=== PATIENT | female | born 1990 | race Caucasian/White ===

== ENCOUNTER → 2016-10-14 | Outpatient (CLI) | payer MEDICAID ==
[~2016-10-14] MED LIST: AZITHROMYCIN250 MG PO; KEFLEX 500MG.500 MG PO; LEVSIN0.125 MG PO; MACROBID 100MG100 MG PO; MEDROL 4MG. DOSE4 MG PO; NEXIUM40 MG PO; NOMEDS XX; PHENERGAN 12.12.5 M1 PO; PHENERGAN 25MG.25 M1 PO; PHENERGAN25 M3 PO; PRENATAL PLUS1 TA1 PO; TESSALON PERLE100 MG PO; TOPCARE OMEPRAZ20 MG PO; TYLENOL WITH CO1 TA1 PO; VICODIN 5/500 T1 TAB PO; ZANTAC 150150 MG PO; ZITHROMAX Z-PA250 M1 PO; ZOFRAN4 MG PO; [UNRECOGNIZED DRUG - OTHER] PO
--- NOTE | 2016-10-14 14:07 | RADIOLOGY REPORT PS360 ---
US PELVIS-TRANSVAGINAL ONLY HISTORY: Dysfunctional uterine bleeding IRREGULAR BLEEDING ORDERING PHYSICIAN: Elías Sunshine MD PATIENT AGE: 26 years COMPARISON: 05/30/2009 FINDINGS: The uterus is 8 x 3.4 x 3.7 cm. Combined in mental thickness is 6 mm. Left ovary is 3 x 1.5 cm and contains several cysts the largest at 1.5 x 1 cm. The right ovary is 2.7 x 1.6 cm containing small follicle. No cul-de-sac fluid apparent. IMPRESSION: Small left ovarian cysts measuring up to 1.5 cm otherwise negative pelvic ultrasound
== END ==
LOC: RAD 11:00
DX: N92.6 Irregular menstruation, unspecified (principal)

== ENCOUNTER → 2017-04-06 | Outpatient (CLI) | payer MEDICAID ==
[2017-04-06 16:01] LABS: HEMOGLOBIN 15.5 g/dL (12.2-16.2); LYMPH # 1.3 K/mm3 (0.7-4.5)
[2017-04-06 17:12] LABS: GFR (ESTIMATED) 100 ML/MIN (59-)
[2017-04-06 17:13] LABS: BUN 5 mg/dL (7-18)
[2017-04-08 09:38] LABS: Vitamin D, 25-Hydroxy 24.7 ng/mL (30.0-100.0)
== END ==
LOC: LAB 15:36
PROVIDERS: Physician Assistant
DX: R53.83 Other fatigue (principal)

== ENCOUNTER 2017-06-07 15:47 | Emergency (ER) | payer MEDICAID ==
[~2017-06-07] VITALS: Ht 154.9 cm; Wt 147.6 kg
--- NOTE | 2017-06-07 16:30 | [facility]gent Treatment Center Report ---
History of Present Issue Date/Time Seen by Provider 06/07/17 1622 Visit Reason Pt arrived:Walked Presenting Problem:PT STATES SHE HAS BEEN VOMTITING "YELLOW STUFF" SINCE THIS MORNING Location if Accident: Onset of symptoms date/time:06/07/1704/16/900 or onset unknown for: Have you (or family members/close friends) recently traveled outside the [place]? N If Yes, where/when: Have you had exposure to infectious disease within the past month? TB? Other? Specify: Patient state that she has had vomiting and diarrhea since early this morning. States that she noticed that she had vomited up bile several times States that she knew if she didn't come in and get something she would get dehydrated State that she was exposed to the stomach virus last week denies blood in stool or vomit, denies recent travel or ingestion of uncooked food ALLERGIES Coded Allergies: No Known Allergies (03/06/16) Home Medications Active Scripts PROMETHAZINE HCL (Phenergan 25MG Tab (Geq)) 25 MG PO Q6HP PRN N/V #30 TAB Prov: 08/31/16 History Medical History General CAD? No Angina: No NE: No Hypertension? No Hyperlipidemia? No CHF? No DVT? No PE? No COPD? No Asthma? No Anemia? No GERD? No Gastric ulcers? No GI Bleed? No Hernia? No Thyroid Problems? No Hypothyroidism? No CVA? No Seizures? No Diabetes? No Insulin Dependent: No Insulin Pump: No Home FSBS? No Renal Insuffiency? No UTI? No Stones? No BPH? No GB Disease: No Nephritic Syndrome? No Asplenia? No Hepatitis? No Sickle Cell Disease? No Arthritis? No Migraines? No Cataracts? No Glaucoma? No MRSA? No HIV? No TB? No Anxiety? No Depression? No Cancer? No More? No Immunization HX DT/Tetanus 10/20/09 Pneumonia Refuses Surgical Hx Previous Surgery?Y TONGUE CLIPPED Family History Family HX Diabetes No CAD No Hypertension No Hyperlipidemia No Cancer No TB No Social History Smoking Hx Smoker: Current Every Day Smoker Tobacco: Yes Type Cigarettes Packs/day N/A Alcohol Alcohol: No Review of Systems All Other Systems Reviewed and Negative Constitutional denies chills, denies fever Gastrointestinal denies abdominal pain, nausea, vomiting Physical Exam Vital Signs Vital Signs Date Time Temp Pulse Resp B/P Pulse O2 O2 Flow FiO2 Ox Delivery Rate 06/07 1709 98.2 79 20 121/89 989 06/07 1607 98.2 79 20 121/89 989 General Appearance normal appearance, WD/WN, no apparent distress Respiratory Status Yes: trachea midline, chest symmetrical. No: respiratory distress. Cardiovascular normal exam, regular rate/rhythm Gastrointestinal non tender, no guarding, no rebound Neurologic alert, normal exam, oriented x 3 Medical Decision Making LABS/Meds/Orders Pt receiving controlled substance in ED? No Results/Orders Current Medication Orders Sig/Jigar Start time Last Medication Dose Route Stop Time Status Admin Promethazine HCl 0 .STK-MED ONE 06/07 1637 DC .ROUTE Promethazine HCl 25 MG ONCE ONE 06/07 1630 DC 06/07 IM 06/07 1631 1640 Sodium Chloride 25 ML ONCE ONE 06/07 1630 DC IV 06/07 1644 Progress [facility] Progress Notes Comment States that she is feeling much better since medication dc home Departure Departure Time of Disposition 1715 Disposition DC Home or Self Care(routine) Clinical Impression Primary Impression: Gastroenteritis Condition STABLE Referrals Myrnada Dorantes MD (Family) Patient Instructions DI for Viral Gastroenteritis -- Adult, Viral Gastroenteritis Additional Instructions Viral Gastroenteritits try very small amounts of water or suck on ice chips. diarrhea. children and infants should use products formulated for children, like oral rehydration solutions. Never give aspirin to children or teenagers with a viral illness. This can cause Jacob syndrome, a potentially life-threatening condition. Preventing Viral Gastroenteritis your Viral gastroenteritis is easily spread. There are some things you can do to lower chances of royal the virus or spreading it to others. preparation. If necessary, use hand sand filler until you can access soap and water. or towels. Avoid ice cubes and use bottled water whenever possible. Discharge Counseling Counseled pt/family regarding diagnosis, medications/RX, home care, follow up needs Prescriptions Current Visit Scripts PROMETHAZINE HCL (Phenergan 25MG Tab (Geq)) 25 MG PO Q6HP PRN N/V #14 TAB at 1716
[2017-06-07 17:09] VITALS: BP 121/89
[2017-06-07] MEDS ORDERED: PHENERGAN25 M3 PO (17:15)
--- OUTSIDE RECORDS SUMMARY | 2017-06-12 20:51 | External Medical Summary Rpt | CCD ---
Author Author , MARY Organization MARY Address Unknown Phone [email or web address] Care Team Providers Care Patent Examiner Name Role Phone BEINEKE, BEINEKE Unavailable Unavailable BEINEKE ERNA, BEINEKE Unavailable Unavailable ERNA BESSON BRIDGER, BESSON Unavailable Unavailable BRIDGER [facility] Unavailable Unavailable SERVICE, [facility]available Unavailable SERVICE, [facility] Unavailable Unavailable BROWN, BROWN Unavailable Unavailable BROWN MARIZA, BROWN Unavailable Unavailable MARIZA BROWN MARIZA, BROWN Unavailable Unavailable MARIZA [facility] Unavailable Unavailable [facility], [facility] Unavailable Unavailable [facility], [facility] Unavailable Unavailable LAB, [facility] Unavailable Unavailable THE [facility], [facility] ANUP J, ANUP J Unavailable Unavailable ANUP J, ANUP J Unavailable Unavailable ANUP Whitmore G, ANUP J Unavailable Unavailable G ANUP Whitmore G, ANUP J Unavailable Unavailable G ANUP GARCIA Unavailable Unavailable Myranda DURAN COOPER, Unavailable Unavailable Myranda Arroyo JOSE ENRIQUE MILLA, Unavailable Unavailable JOSE ENRIQUE MILLA JOSE ENRIQUE MILLA, Unavailable Unavailable JOSE ENRIQUE MILLA JOSE ENRIQUE, GAMA, Unavailable Unavailable JOSE ENRIQUE, GAMA [place] [facility] SUKHJINDER LEIGHANN, SUKHJINDER Unavailable Unavailable [facility] Un[facility], [facility] MELANIE, MELANIE Unavailable Unavailable MELANIE LEIGHANN, MELANIE Unavailable Unavailable LEIGHANN MELANIE LEIGHANN, MELANIE Unavailable Unavailable LEIGHANN CHERI OLIVEIRA, Unavailable Unavailable CHERI OLIVEIRA VIN, JAMA Unavailable Unavailable VIN JAMA VIN, JAMA Unavailable Unavailable VIN [facility] Unavailable Unavailable [facility], [facility] Unavailable Unavailable [facility], [facility] Unavailable Unavailable INC, [facility] Unavailable [facility]available [facility], [facility] Unavailable Unavailable HOSPITAL P, [facility], Unavailable Unavailable [facility] ILUYOMADE ROT, Unavailable Unavailable [facility] Unavailable Unavailable [facility], [facility] Unavailable Unavailable LIZ[facility]DRO H, [facility] H DUGLAS ELIAS, Unavailable Unavailable DUGLAS ELIAS ZOË JR DWI, ZOË Unavailable Unavailable JR DWI BORGES, BORGES Unavailable Unavailable BORGES LANE, B[facility]GES Unavailable Unavailable LANE Laura Oliveira MD, Unavailable Unavailable HALIMA Mao MD Unavailable [facility]available [facility] MICHELLE CASAS, Unavailable Unavailable KIM MUNOZ, Unavailable Unavailable KIM MONTEMAYOR MULBERRY CLARKE, Unavailable Unavailable MULBERRY CLARKE MULMAGNO OSIRIS T, Unavailable Unavailable MULBERRY, OSIRIS T [facility] Unavailable Unavailable DEPT, [facility] MARCOS R H, Unavailable Unavailable MARCOS R H MARCOS R H, Unavailable Unavailable MARCOS R H MARCOSDorinda, Unavailable Unavailable MARCOS R LISETH CHRISTIANSON JAM, CHRISTIANSON Unavailable Unavailable JAM [facility], [facility], [facility] Unavailable Unavailable LABS, LLC [facility] Un[facility]available [facility], [facility] Unavailable Unavailable LAB, [facility] Unavailable Unavailable LAB, [facility] LAB PICKBRITNEY MCKAY, Unavailable Unavailable PICKBRITNEY YOON TOYessenia, KARRIE TOYessenia Unavailable Unavailable [id number], Unavailable Unavailable [id number] Unavailable Unavailable [id number] [address] [id number], [facility] [address] # [id number] MELANIE WISE, Unavailable Unavailable MELANIE WISE, TRACEY Unavailable Unavailable ADRIANA SOTINGEANU, Unavailable Unavailable SOTINGEANU SOTINGEANU ERNA, Unavailable Unavailable SOTINGEANU [facility] ADALBERTO AYALA, ADALBERTO Unavailable Unavailable AYALA [facility] Unavailable Unavailable #591, [facility] # Unavailable Unavailable [id number], [facility] # [id number] JOSH RAMIREZ AMITA, Unavailable Unavailable JOSH LEVI, Unavailable Unavailable JOSH MORENO III, OMAIRA, Unavailable Unavailable OMAIRA MORENO III, MARIA ELENA GARCÍA Unavailable Unavailable OMAIRA MORENO, Unavailable Unavailable OMAIRA MORENO [facility] Unavailable Unavailable OF [place], [facility] Purpose Continuity of Care Document - 11-01-2007 through 2016 Problems Code Diagnosis DOS Provider Status R5383 OTHER 04-06-2017 [facility] [id number] UNSPECIFIED 10-14-2016 [place] OVARIAN MEDICAL CYST LEFT IMAGING ASS SIDE N926 IRREGULAR 10-14-2016 [place] MENSTRUATIO MEDICAL N IMAGING ASS UNSPECIFIED N938 OTHER SPEC 10-14-2016 [place] ABNORMAL MEDICAL UTERINE & IMAGING ASS VAGINAL BLEEDING N920 EXCESS & 09-24-2016 [facility] MENSTRUATIO GROUP N W/REGULAR CYCLE R5382 CHRONIC 09-24-2016 [facility] UNSPECIFIED INC R635 ABNORMAL 09-24-2016 [facility] GAIN [facility] A084 VIRAL 08-31-2016 [facility] INTESTINAL [facility] INFECTION INC UNSPECIFIED K529 NONINFECTIV 08-31-2016 [facility]OENTER [facility] ITIS & COLITIS UNS Z35032 PERSONAL 08-31-2016 [facility] HISTORY OF [facility] NICOTINE INC DEPENDENCE H6983 OTHER SPEC 07-22-2016 [facility] DISORDERS PHYSICIANS EUSTACHIAN GROUP TUBE BILAT F86689 CELLULITIS 07-22-2016 [facility] OF HEAD ANY PHYSICIANS PART GROUP EXCEPT FACE K5900 CONSTIPATIO 03-12-2016 [facility] UNSPECIFIED Z9049 ACQUIRED 03-12-2016 [facility] ABSENCE OTH ASSOCIATES SPEC PARTS DIGESTIVE TRACT K8010 CALCULUS GB 03-06-2016 [facility], W/CHRONIC LLC CHOLECYST W/O OBSTRUCTION K819 CHOLECYSTIT 03-06-2016 COMMUN[facility] IS ANESTH OF UNSPECIFIED THE BLUE E876 HYPOKALEMIA 03-05-2016 [facility] K8000 CALCULUS GB 03-05-2016 [facility] W/ACUTE ASSOCIATES CHOLECYST W/O OBSTRUCTION K810 ACUTE 03-05-2016 [facility] CHOLECYSTIT PHYSICIANS IS GROUP R1013 EPIGASTRIC 03-05-2016 [facility] PAIN PHYSICIANS GROUP R112 NAUSEA WITH 03-05-2016 [facility] VOMITING PHYSICIANS UNSPECIFIED GROUP K8020 CALCULUS GB 03-04-2016 [facility] W/O PHYSICIANS, CHOLECYSTIT PLLC IS W/O OBSTRUCTION K828 OTHER 03-04-2016 [place] SPECIFIED MEDICAL DISEASES OF IMAGING ASS GALLBLADDER R1110 VOMITING 03-04-2016 [place] UNSPECIFIED MEDICAL IMAGING ASS R079 CHEST PAIN 02-20-2016 [place] UNSPECIFIED [facility]ICAL IMAGING ASS R1031 RIGHT LOWER 02-19-2016 [place] [facility]ANT [facility] PAIN IMAGING ASS E039 HYPOTHYROID 01-04-2016 [facility]M [facility] UNSPECIFIED [place] I10 ESSENTIAL 01-04-2016 [facility] PRIMARY [facility] HYPERTENSIO LA N D2271 MELANOCYTIC 10-30-2015 [facility], NEVI RIGHT LLC LOWER LIMB INCLUDING HIP D2370 OTHER 10-30-2015 [facility] BENIGN PHYSICIANS NEOPLASM GROUP SKIN UNS LOW LIMB INCL HIP R52 PAIN 10-30-2015 [facility] UNSPECIFIED PHYSICIANS GROUP A68646 ENCOUNTER 10-02-2015 [facility], COUNTY NURSE EXAM LLC GENERAL RTN W/O ABNORMAL FIND Z113 ENCOUNTER 10-02-2015 [facility], SCREEN LLC INFECTIONS SEXL MODE TRANSMISSN A30586 PAIN IN 08-25-2015 [facility] M791 MYALGIA 08-25-2015 [facility] PLLC K649 UNSPECIFIED 07-20-2015 [facility] HEMORRHOIDS K644 RESIDUAL 07-14-2015 [facility] SKIN TAGS INC N925 OTHER 07-02-2015 [facility] SPECIFIED PHYSICIANS IRREGULAR GROUP MENSTRUATIO N M9900 SEGMENTAL 06-19-2015 [place] [facility] DYSFUNCTION OF HEAD REGION M9902 SEGMENTAL & 06-19-2015 [place] [facility] DYSFUNCTION C CENTE THORACIC REGION M9903 SEGMENTAL & 06-19-2015 [place] [facility] DYSFUNCTION C CENTE OF LUMBAR REGION 2768 HYPOPOTASSE 03-07-2015 [facility] P 65685 ABDOMINAL 03-07-2015 [facility] PAIN, PHYSICIANS, EPIGASTRIC PLLC V1582 PERS HX 03-07-2015 [facility] TOBACCO USE [facility] 66632 ACUT 02-27-2015 [facility] SUPPRATV [facility] MEDIA W/O SPONT RUP EARDRUM 25815 NAUSEA WITH 12-30-2014 [place] [facility]OM[facility]ING [facility] IM[facility]ING ASS 08497 DIARRHEA 12-30-2014 [place] [facility] 5589 OTH&UNSPEC 12-29-2014 [facility] NONINFECTIO [facility] P GASTROENTER ITIS&COLITI S 38049 VOMITING 11-08-2014 [facility] P 4789 OTHER&UNSPE 09-01-2014 [facility] DISEASES [facility] RESPIRATORY TRACT 6160 CERVICITIS 07-07-2014 [facility], AND LLC ENDOCERVICI TIS V221 SUPERVISION 07-07-2014 [facility], OF OTHER LLC NORMAL V7242 07-07-2014 [facility] EXAMINATION PHYSICIANS OR TEST GROUP POSITIVE RESULT V745 SCREENING 07-07-2014 [facility], EXAMINATION LLC FOR VENEREAL DISEASE 43401 BN&JNT D/O 06-22-2014 [facility] EM[facility]ENCY PELVIS&LW PHYS LIMBS ANTEPARTUM 7242 LUMBAGO 06-22-2014 [facility] EMERGENCY PHYS 7871 HEARTBURN 05-18-2014 [facility] 48974 ABDOMINAL 05-18-2014 [facility] PAIN RIGHT [facility] UPPER INC QUADRANT V5869 LONG-TERM 03-08-2014 [facility] (CURRENT) PHYSICIANS USE OF LA OTHER MEDICATIONS 5368 DYSPEPSIA&O 02-01-2014 ANUP Arroyo THER SPEC DISORDERS FUNCTION STOMACH 6269 UNS D/O 02-01-2014 ANUP Arroyo MENSTRUATIO N&OTH ABN BLEED FE GNT TRACT 34084 UNSPECIFIED 11-25-2013 [facility] OTALGIA [facility] INC 7873 FLATULENCE 11-25-2013 [facility] ELENA RICKY ERUCTATION AND GAS PAIN 08252 ABDOMINAL/P 11-25-2013 [facility] ELVIC [facility] SWELLING INC MASS/LUMP UNSPEC SITE 6264 IRREGULAR 11-23-2013 [facility] [address] NAUSEA 10-28-2013 WEHRMAN III ALONE AMITA 466.0 466.0 ACUTE 2013 [facility] BRONCHITIS [facility] 4660 ACUTE 2013 [facility] BRONCHITIS [facility] INC 535.00 535.00 2013 [facility] W/O MENTION OF HEMORRHAGE 99029 ACUTE 2013 [facility] GASTRITIS [facility] WITHOUT INC MENTION OF HEMORRHAGE 25197 UNS 2013 MELANIE LEIGHANN GASTRITIS&G ASTRODUODIT IS W/O MENTION HEMORR 6201 CORPUS 07-04-2013 [facility] MARIZA LUTEUM CYST OR HEMATOMA 6259 UNSPEC 07-04-2013 STEPHANIE DAWKINS SYMPTOM ASSOC W/FEMALE GENITAL ORGANS 22198 ABDOMINAL 05-19-2013 [facility] PAIN, LEFT [facility] [place] 6253 DYSMENORRHE 04-12-2013 [facility] MARIZA A 6260 ABSENCE OF 04-12-2013 [facility]STRUATIO [facility] N INC 599.0 599.0 URIN 12-23-2012 [facility] TRACT [facility] INFECTION Hospital NOS 5990 URINARY 12-23-2012 [facility] TRACT [facility] INFECTION INC SITE NOT SPECIFIED 787.03 787.03 12-23-2012 Bhavik VOMITING [facility] Hospital 486 486 10-20-2012 Bhavik PNEUMONIA, [facility] ORGANISM Hospital NOS 780.60 780.60 10-20-2012 [facility] FEVER, [facility] UNSPECIFIED Hospital 92171 FEVER 10-20-2012 WEHRMAN III UNSPECIFIED AMITA 7862 COUGH 10-20-2012 JOSE ENRIQUE MILLA 789.00 789.00 10-20-2012 [facility] ABDOMINAL [facility] UNSPECIFIED SITE 24169 ABDOMINAL 10-20-2012 WEHRMAN III PAIN, AMITA UNSPECIFIED SITE 0091 COLITIS 08-27-2012 [facility] EN[facility]IT[facility]GAS [facility] TROENTERIT INF ORIGIN 6262 EXCESSIVE 08-27-2012 [facility] OR FREQUENT ASSOCIATES MENSTRUATIO N 71941 INSOMNIA 08-27-2012 [facility] UNSPECIFIED ASSOCIATES V016 CONTACT 07-15-2012 [facility] KERNS WITH OR HEALTH EXPOSURE TO CENTER VENEREAL DISEASES 40913 MASTODYNIA 06-24-2012 [facility] 42312 ABDOMINAL 06-24-2012 [facility] PAIN, [facility] GENERALIZED INC V2541 SURVEILLANC 06-07-2012 [facility] CO E PREV HEALTH PRESCRIBED CENTER CONTRACEPT PILL 3819 UNSPECIFIED 06-02-2012 ANUP Arroyo EUSTACHIAN TUBE DISORDER 46636 LOSS OF 06-02-2012 [facility] WEIGHT [facility] V7241 03-30-2012 [facility] CO EXAMINATION HEALTH OR TEST CENTER NEGATIVE RESULT 5758 OTHER 02-05-2012 [place] SPECIFIED MEDICAL DISORDER OF IMAGING ASS GALLBLADDER 21056 ABDOMINAL 02-03-2012 J[facility] PAIN OTHER SPECIFIED SITE 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 2662 OTHER 01-06-2012 [facility] KERNS B-COMPLEX HEALTH DEFICIENCIE CENTER S 6228 OTHER 01-06-2012 PATHOLOGY & SPECIFIED CYTOLOGY NONINFLAMMA LAB TORY DISORDER CERVIX V1589 OT SPEC 01-06-2012 PATHOLOGY & PERS HX CYTOLOGY PRESENTING LAB [facility]ZAR[facility] HEALTH OTH V2509 OT GENERAL 01-06-2012 [facility] HEALTH CNSL&ADVICE CENTER CONTRACEPT MANAGEMENT V2549 SURVEILLANC 10-29-2011 [facility] E OT PREV [facility] PRSC CENTER CONTRACEPT METHOD 460 ACUTE 09-18-2011 [facility] NASOPHARYNG ASSOCIATES ITIS 6983 LICHENIFICA 03-05-2011 [facility] TION AND ASSOCIATES LICHEN SIMPLEX CHRONICUS 18735 UNSPECIFIED 01-13-2011 MEDICAL VAGINITIS DIAGNOSTIC AND LAB [facility] VULVOVAGINI TIS V7231 ROUTINE 12-24-2010 PATHOLOGY & GYNECOLOGIC CYTOLOGY AL LAB EXAMINATION 7231 CERVICALGIA 06-28-2010 [facility] 42879 NONSPEC 06-28-2010 [facility] PAP [facility] UNSATISFACT ORY CYTOLOGY 87565 PAP SMER 06-07-2010 [facility] W/ATYPICAL CENTER SQUAMOUS CELLS UNDET 8830 OPEN WOUND 10-20-2009 [facility] WITHOUT SERVICES MENTION ASSOCIATES COMPLICATIO N V065 NEED 10-20-2009 [facility] PROPHYLACTI [facility] INC VACCINATION W/TETANUS-D [facility] 50360 UNSPECIFIED 08-21-2009 DUGLAS ELIAS OBSTRUCTION OF EUSTACHIAN TUBE 4779 ALLERGIC 08-21-2009 LILLIAAN ELIAS CAUSE UNSPECIFIED 37656 DYSFUNCTION 08-16-2009 CHARISMA ELIAS EUSTACHIAN TUBE 71184 UNSPECIFIED 08-16-2009 DUGLAS ELIAS SENSORINEUR AL HEARING LOSS 50244 ABDOMINAL 08-08-2009 [facility] PAIN, ASSOCIATES PERIUMBILIC 77604 MIGRAINE 04-21-2009 [facility] UNSP W/O [facility] INTRACT W/O INC STATUS MIGRAINOSUS 4619 ACUTE 04-21-2009 [facility] SINUSITIS, [facility] UNSPECIFIED INC 7840 HEADACHE 04-21-2009 [place] [facility] 24686 REGULAR 03-09-2009 [facility] ASTIGMATISM VISION 75223 UNSPECIFIED 12-28-2008 [facility] INFECTION SERVICES IN CCE & ASSOCIATES UNS SITE 1121 CANDIDIASIS 12-05-2008 [facility] OF VULVA HEALTH AND VAGINA CENTRAL BANK ACCT 6929 CONTACT 04-18-2008 [facility] DERMATITIS& [facility] OTHER INC ECZEMA DUE UNSPEC CAUSE 5889 UNSPEC D/O 11-03-2007 [facility] RESULT FROM HEALTH IMPAIRED CENTRAL RENAL BANK ACCT FUNCTION V2502 GENERAL 11-01-2007 [facility] CNSL HEALTH INITIATION CENTRAL OTH BANK ACCT CONTRACEPT MEASURES Allergies, Adverse Reactions, Alerts Type Drug Allergy Adverse Reaction to Substance Substance Reaction Severity No Known Allergies - Unknown Unknown Nka Medications Na ND Rx Da Fi Fi Am Da Di Ph RX Ph St me C No te ll ll ou ys ag ar # ys at rm s nt no ma ic us Or Da si cy ia de te s n re d 64 09 10 4. 28 00 RI Ac T 38 -0 -0 00 00 TE ti D2 00 4- 6- 0 01 ve 73 20 20 19 AI 1. 70 17 17 49 D 25 6 56 PH AR MG MA CY (5 0, #3 00 93 0 8 UN IT ) OM 00 09 10 30 30 00 RI Ac EP 78 -0 -0 .0 00 TE ti RA 12 4- 6- 00 01 ve ZO 79 20 20 19 AI LE 01 17 17 46 D [address] AR MA 20 CY MG #3 93 CA 8 PS UL E 64 08 09 4. 28 00 RI Ac T 38 -1 -1 00 00 TE ti D2 00 0- 5- 0 01 ve 73 20 20 19 AI 1. 70 17 17 49 D 25 6 56 PH AR MG MA CY (5 0, #3 00 93 0 8 UN IT ) RA 11 08 09 30 30 00 RI Ac 82 -1 -1 .0 00 TE ti 25 0- 5- 00 01 ve TA 11 20 20 19 AI SC 21 17 17 49 D N 0 59 PH D3 AR MA 2, CY 00 0 #3 UN 93 IT 8 SF GL OM 00 08 09 30 30 00 RI Ac EP 78 -0 -0 .0 00 TE ti RA 12 7- 8- 00 01 ve ZO 79 20 20 19 AI LE 01 17 17 46 D [address] AR MA 20 CY MG #3 93 CA 8 PS UL E QU 16 08 09 30 30 00 RI Ac ET 72 -0 -0 .0 00 TE ti IA 90 7- 8- 00 01 ve PI 14 20 20 19 AI NE 50 17 17 46 D 1 15 PH FU AR MA MA RA CY TE #3 25 93 8 MG TA B SO 00 12 0 No DI 40 -0 UM 97 3- Lo 98 20 ng CH 30 13 er LO 9 RI Ac DE ti ve 0. 9% SO CRISTIAN TI ON Sa 63 12 0 No li 80 -0 ne 70 3- Lo 10 20 ng Fl 07 13 er us 5 h Ac 10 ti ML ve Sy ri ng e ON 00 12 0 No DA 64 -0 NS 16 3- Lo ET 08 20 ng RO 02 13 er N 5 HC Ac L ti 4 ve MG /2 ML AL CE 62 04 0 No PH 75 -2 AL 60 5- Lo EX 29 20 ng IN 48 13 er 8 50 Ac 0 ti MG ve CA PS UL E SO 00 02 0 No DI 40 -2 UM 97 0- Lo 98 20 ng CH 30 13 er LO 9 RI Ac DE ti ve 0. 9% SO CRISTIAN TI ON Sa 63 02 0 No li 80 -2 ne 70 0- Lo 10 20 ng Fl 07 13 er us 5 h Ac 10 ti ML ve Sy ri ng e ON 00 02 0 No DA 64 -2 NS 16 0- Lo ET 08 20 ng RO 02 13 er N 5 HC Ac L ti 4 ve MG /2 ML AL MA 00 02 0 No PA 90 -2 P 41 0- Lo 32 98 20 ng 5 26 13 er MG 1 Ac TA ti BL ve ET NE 00 07 10 4 30 30 RI 89 CO Ac XI 18 -0 -3 .0 TE 84 OP ti UM 65 6- 1- 00 28 ER ve [address] 03 11 11 D JOSÉ MIGUEL 1 PH HN 40 AR G MA MG CY CA 03 PS 93 UL 8 E # 03 93 NE 00 07 10 4 30 30 RI 89 CO Ac XI 18 -0 -0 .0 TE 84 OP ti UM 65 6- 4- 00 28 ER ve [address] 03 11 11 D JOSÉ MIGUEL 1 PH HN 40 AR G MA MG CY CA 03 PS 93 UL 8 E # 03 93 NE 00 07 08 6 30 30 WA 71 CO Ac XI 18 -0 -2 .0 L- 25 OP ti UM 65 6- 2- 00 MA 98 ER ve 04 [address] 03 11 11 JOSÉ MIGUEL 1 PH HN 40 AR G MA MG CY # CA PS 10 UL 05 E 91 NE 00 07 07 6 30 30 WA 71 CO Ac XI 18 -0 -2 .0 L- 25 OP ti UM 65 6- 5- 00 MA 98 ER ve 04 [address] 03 11 11 JOSÉ MIGUEL 1 PH HN 40 AR G MA MG CY # CA PS 10 UL 05 E 91 TR 00 07 07 1 30 15 WA 71 CO Ac IA 16 -0 -0 .0 L- 25 OP ti MC 80 6- 6- 00 MA 98 ER ve IN 00 20 20 RT 7 OL 31 11 11 JOSÉ MIGUEL ON 5 PH HN E AR G 0. MA 02 CY 5% # CR 10 EA 05 M 91 NE 00 01 06 6 30 30 WA 71 CO Ac XI 18 -0 -2 .0 L- 01 OP ti UM 65 6- 8- 00 MA 45 ER ve 04 [address] 03 11 11 JOSÉ MIGUEL 1 PH HN 40 AR G MA MG CY # CA PS 10 UL 05 E 91 NE 00 01 06 6 30 30 WA 71 CO Ac XI 18 -0 -0 .0 L- 01 OP ti UM 65 6- 1- 00 MA 45 ER ve 04 [address] 03 11 11 JOSÉ MIGUEL 1 PH HN 40 AR G MA MG CY # CA PS 10 UL 05 E 91 DO 53 05 05 0 14 7 WV 71 DAVID Ac XY 48 -1 -1 .0 L- 19 MM ti CY 90 6- 6- 00 MA 46 ON ve CL 12 20 20 RT 6 D IN 00 11 11 KA E 2 PH TH HY AR AR CL MA IN AT CY E E # Y 10 0 10 MG 05 91 TA B ME 00 05 05 0 70 30 WV 71 DAVID Ac TR 78 -1 -1 .0 L- 19 MM ti ON 17 6- 6 00 MA 46 ON ve ID 07 20 20 RT 4 D AZ 78 11 11 KA OL 7 PH TH E AR AR VA MA IN GI CY E NA # Y L 0. 10 75 05 % 91 GL NE 00 01 04 6 30 30 WA 71 CO Ac XI 18 -0 -2 .0 L- 01 OP ti UM 65 6- 9- 00 MA 45 ER ve 04 [address] 03 11 11 JOSÉ MIGUEL 1 PH HN 40 AR G MA MG CY # CA PS 10 UL 05 E 91 NE 00 01 03 6 30 30 WA 71 CO Ac XI 18 -0 -2 .0 L- 01 OP ti UM 65 6- 9- 00 MA 45 ER ve 04 [address] 03 11 11 JOSÉ MIGUEL 1 PH HN 40 AR G MA MG CY # CA PS 10 UL 05 E 91 NE 00 01 03 6 30 30 WA 71 CO Ac XI 18 -0 -0 .0 L- 01 OP ti UM 65 6- 2- 00 MA 45 ER ve 04 [address] 03 11 11 JOSÉ MIGUEL 1 PH HN 40 AR G MA MG CY # CA PS 10 UL 05 E 91 NE 00 01 02 6 30 30 WA 71 CO Ac XI 18 -0 -0 .0 L- 01 OP ti UM 65 6- 3- 00 MA 45 ER ve 04 [address] 03 11 11 JOSÉ MIGUEL 1 PH HN 40 AR G MA MG CY # CA PS 10 UL 05 E 91 NE 00 01 01 6 30 30 WA 71 CO Ac XI 18 -0 -0 .0 L- 01 OP ti UM 65 6- 6- 00 MA 45 ER ve 04 [address] 03 11 11 JOSÉ MIGUEL 1 PH HN 40 AR G MA MG CY # CA PS 10 UL 05 E 91 NE 00 06 11 6 30 30 WA 70 CO Ac XI 18 -0 -3 .0 L- 74 OP ti UM 65 9- 0- 00 MA 10 ER ve 04 [address] 03 10 10 JOSÉ MIGUEL 1 PH HN 40 AR G MA MG CY # CA PS 10 UL 05 E 91 NE 00 06 11 6 30 30 WA 70 CO Ac XI 18 -0 -0 .0 L- 74 OP ti UM 65 9- 1- 00 MA 10 ER ve 04 [address] 03 10 10 JOSÉ MIGUEL 1 PH HN 40 AR G MA MG CY # CA PS 10 UL 05 E 91 NE 00 06 10 6 30 30 WA 70 CO Ac XI 18 -0 -0 .0 L- 74 OP ti UM 65 9- 2- 00 MA 10 ER ve 04 [address] 03 10 10 JOSÉ MIGUEL 1 PH HN 40 AR G MA MG CY # CA PS 10 UL 05 E 91 NE 00 06 09 6 30 30 WA 70 CO Ac XI 18 -0 -0 .0 L- 74 OP ti UM 65 9- 3- 00 MA 10 ER ve 04 [address] 03 10 10 JOSÉ MIGUEL 1 PH HN 40 AR G MA MG CY # CA PS 10 UL 05 E 91 NE 00 06 08 6 30 30 WA 70 CO Ac XI 18 -0 -0 .0 L- 74 OP ti UM 65 9- 5- 00 MA 10 ER ve 04 [address] 03 10 10 JOSÉ MIGUEL 1 PH HN 40 AR G MA MG CY # CA PS 10 UL 05 E 91 NE 00 06 07 6 30 30 WA 70 CO Ac XI 18 -0 -0 .0 L- 74 OP ti UM 65 9- 7- 00 MA 10 ER ve 04 [address] 03 10 10 JOSÉ MIGUEL 1 PH HN 40 AR G MA MG CY # CA PS 10 UL 05 E 91 68 06 06 6 10 25 WA 70 CO Ac 01 -0 -0 0. L- 74 OP ti 30 9- 9- 00 MA 10 ER ve 01 20 20 0 RT 3 80 10 10 JOSÉ MIGUEL 1 PH HN AR G MA CY # 10 05 91 NE 00 06 06 6 30 30 WA 70 CO Ac XI 18 -0 -0 .0 L- 74 OP ti UM 65 9- 9- 00 MA 10 ER ve 04 [address] 03 10 10 JOSÉ MIGUEL 1 PH HN 40 AR G MA MG CY # CA PS 10 UL 05 E 91 OH 68 10 11 00 10 2 WA 70 MU Ac OM 38 -2 -0 .0 L- 42 LB ti ET 20 2- 5- 00 MA 43 ER ve DAVID 04 20 20 RT 9 RY ZI 00 09 09 NE 1 PH BR AR IA 12 MA N .5 CY T MG #5 91 TA BL ET 66 10 11 00 12 6 WA 70 MU Ac 99 -2 -0 0. L- 42 LB ti 20 2- 5- 00 MA 44 ER ve 22 20 20 0 RT 0 RY 00 09 09 4 PH BR AR IA MA N CY T #5 91 TA 00 10 10 00 10 5 RI 80 DAVID Ac SC 00 -1 -2 .0 TE 39 MM ti FL 40 3- 2- 00 93 ON ve U 80 20 20 AI D 75 08 09 09 D KA 5 PH TH MG AR AR M IN CA #3 E PS 93 Y UL 8 E NE 00 10 10 00 30 30 WA 70 CO Ac XI 18 -1 -2 .0 L- 40 OP ti UM 65 2- 2- 00 MA 89 ER ve 04 [address] 03 09 09 JOSÉ MIGUEL 1 PH HN 40 AR G MA MG CY CA #5 PS 91 UL E OH 68 10 10 00 10 2 RI 80 DAVID Ac OM 38 -1 -2 .0 TE 39 MM ti ET 20 3- 2- 00 94 ON ve DAVID 04 20 20 AI D ZI 00 09 09 D KA NE 1 PH TH AR AR 12 M IN .5 #3 E 93 Y MG 8 TA BL ET 51 10 10 00 60 15 WA 70 CO Ac 99 -0 -2 .0 L- 40 OP ti 10 8- 2- 00 MA 51 ER ve 32 20 20 RT 0 50 09 09 JOSÉ MIGUEL 1 PH HN AR G MA CY #5 91 CE 68 08 10 00 21 7 WA 70 GA Ac PH 18 -2 -0 .0 L- 38 IN ti AL 00 2- 8- 00 MA 71 EY ve EX 12 20 20 RT 1 IN 20 09 09 SC 1 PH CH 50 AR AE 0 MA L MG CY S CA #5 PS 91 UL E 00 08 10 00 8. 2 WA 44 GA Ac 40 -2 -0 00 L- 80 IN ti 60 2- 8- 0 MA 01 EY ve 35 20 20 RT 6 70 09 09 SC 5 PH CH AR AE MA L CY S #5 91 24 08 08 00 56 14 WA 70 NO Ac 48 -1 -2 .0 L- 32 RF ti 60 8- 7- 00 MA 83 LE ve 60 20 20 RT 8 ET 11 09 09 R 0 PH AR HE MA NR CY Y #5 91 DI 00 07 08 00 30 8 RI 79 NO Ac CY 37 -3 -1 .0 TE 38 RF ti CL 81 0- 3- 00 27 LE ve OM 61 20 20 AI ET IN 00 09 09 D R E 1 PH 10 AR HE M NR MG #3 Y 93 CA 8 PS UL E FL 68 04 04 00 1. 1 WA 70 MC Ac UC 46 -0 -2 00 L- 15 KE ti ON 20 7- 3- 0 MA 71 SC ve AZ 10 20 20 RT 3 E OL 34 09 09 JR E 0 PH 15 AR WI 0 MA LL MG CY IA M TA #5 F BL 91 ET RI 00 03 04 00 30 30 RI 77 NO Ac SP 09 -2 -0 .0 TE 69 RF ti ER 30 3- 9- 00 58 LE ve ID 22 20 20 AI ET ON 50 09 09 D R E 6 PH 0. AR HE 5 M NR MG #3 Y 93 TA 8 BL ET 00 03 04 00 45 20 RI 77 NO Ac 09 -2 -0 .0 TE 69 RF ti 30 3- 9- 00 61 LE ve 67 20 20 AI ET 39 09 09 D R 5 PH AR HE M NR #3 Y 93 8 PO 00 03 04 00 52 30 RI 77 NO Ac LY 57 -2 -0 7. TE 69 RF ti ET 40 3- 9- 00 59 LE ve HY 41 20 20 0 AI ET LE 20 09 09 D R NE 5 PH AR HE GL M NR YC #3 Y OL 93 8 33 50 PO WD Vital Signs 2013 08:10 Name Value Interpretat Reference Comment ion Range BP 90 mm[Hg] Diastolic BP Systolic 116 mm[Hg] Heart 88 /min Rate/Pulse O2% 99 % Respiratory 18 /min Rate 2013 08:05 Name Value Interpretat Reference Comment ion Range BP 90 mm[Hg] Diastolic BP Systolic 116 mm[Hg] Heart 88 /min Rate/Pulse O2% 99 % Respiratory 18 /min Rate 12-23-2012 02:39 Name Value Interpretat Reference Comment ion Range BP 79 mm[Hg] Diastolic BP Systolic 169 mm[Hg] Heart 75 /min Rate/Pulse O2% 98 % Respiratory 20 /min Rate 10-20-2012 18:22 Name Value Interpretat Reference Comment ion Range Body 98.8 [degF] Temperature BP 65 mm[Hg] Diastolic BP Systolic 122 mm[Hg] Heart 114 /min Rate/Pulse O2% 96 % Respiratory 20 /min Rate 10-20-2012 17:53 Name Value Interpretat Reference Comment ion Range BP 72 mm[Hg] Diastolic BP Systolic 119 mm[Hg] Heart 110 /min Rate/Pulse O2% 97 % Respiratory 20 /min Rate Results Labs Lab Lab Date Result Refere Interp Status Commen Order Detail nces retati t Range on COMPREHENSIVE METABOLIC PANEL (2013 06:28) Glucose 92 74-106 complet 013 mg/dL ed Bld-mCn 06:28 c BUN 7 mg/dL 7-18 complet Bld-mCn 013 ed c 06:28 Creat 1.0 0.6-1.0 complet SerPl-m 013 mg/dL ed Cnc 06:28 Creat 89 50-200 complet Cl 013 ML/MIN ed predict 06:28 ed SerPl C-G-vRa te GFR/BSA 68 59- complet .pred 013 ML/MIN ed SerPl 06:28 Schwart z-vRate Sodium 140 136-145 complet SerPl-s 013 mmoL/L ed Cnc 06:28 Potassi 3.6 3.5-5.1 complet um 013 mmoL/L ed SerPl-s 06:28 Cnc Chlorid 104 98-107 complet e 013 mmoL/L ed SerPl-s 06:28 Cnc CO2 27 21.0-32 complet SerPl-s 013 mmoL/L .0 ed Cnc 06:28 Calcium 9.2 8.5-10. complet 013 mg/dL 1 ed SerPl-m 06:28 Cnc Prot 08-02-2 8.3 6.4-8.2 complet SerPl-m 013 gm/dL ed Cnc 06:28 Albumin 08-02-2 4.0 3.4-5.0 complet 013 gm/dL ed SerPl-m 06:28 Cnc Globuli 08-02-2 4.3 1.3-3.2 complet n 013 gm/dL ed Ser-mCn 06:28 c Albumin 2 0.9 UNK 1.1-1.8 complet /Glob 013 ed SerPl-m 06:28 Rto Bilirub 2 0.4 0.2-1.0 complet 013 mg/dL ed SerPl-m 06:28 Cnc AST 08-02- 20 U/L 15-37 complet SerPl-c 013 ed Cnc 06:28 ALT 31 U/L 30-65 complet SerPl-c 013 ed Cnc 06:28 ALP 08-02-2 43 U/L 50-136 complet SerPl-c 013 ed Cnc 06:28 Amylase SerPl-cCnc (2013 06:28) Amylase 08-02-2 54 U/L 25-115 complet 013 ed SerPl-c 06:28 Cnc LIPASE (2013 06:28) LIPASE 140 U/L 73-393 complet 013 ed 06:28 CBC with AUTO DIFF (2013 06:28) WBC # 08-02-2 7.7 4.8-10. complet Bld 013 K/MM3 8 ed Auto 06:28 RBC # 08-02-2 4.75 4.2-5.4 complet Bld 013 M/mm3 ed Auto 06:28 Hgb 08-02- 14.6 12.2-16 complet Bld-mCn 013 g/dL .2 ed c 06:28 Hct Fr 42.0 % 37.0-47 complet Bld 013 .0 ed 06:28 MCV RBC 88.4 fl 82.2-97 complet 013 .8 ed 06:28 MCH RBC 30.9 pg 27-31.2 complet Qn 013 ed Auto 06:28 MEAN 34.9 31.8-35 complet CORPUSC 013 g/dl .4 ed ULAR 06:28 HGB CONC RDW RBC 13.7 % 11.5-17 complet Auto 013 .5 ed 06:28 Platele 316 142-424 complet t Bld 013 K/mm3 ed Ql 06:28 Manual MEAN 7.2 fl 7.4-10. complet PLATELE 013 4 ed T 06:28 VOLUME Granulo 67.5 % 37.0-80 complet cytes 013 .0 ed Fr Bld 06:28 Auto LYMPH % 25.2 % 10-50.0 complet 013 ed 06:28 Monocyt 5.3 % 1.7-9.3 complet es Fr 013 ed Bld 06:28 Auto Eosinop 2 1.7 % 0.1-12. complet hil Fr 013 0 ed Bld 06:28 Auto Basophi 2 0.4 % 0.1-2.0 complet ls Fr 013 ed Bld 06:28 Auto Granulo 08-02-2 5.2 1.8-7.8 complet cytes # 013 K/mm3 ed Bld 06:28 Auto Lymphoc 2 2.0 0.7-4.5 complet ytes Fr 013 K/mm3 ed Bld 06:28 Auto Monocyt 08-02-2 0.4 0.1-1.0 complet es # 013 K/mm3 ed Bld 06:28 Auto Eosinop 08-02-2 0.1 0.0-0.4 complet hil # 013 K/mm3 ed Bld 06:28 Auto Basophi 08-02-2 0.0 0-0.2 complet ls # 013 K/MM3 ed Bld 06:28 Auto B-HCG Ur Ql (2013 06:15) B-HCG NEGATIV NEG complet Ur Ql 013 E ed 06:15 URINALYSIS/COMPLETE (2013 06:14) URINE YELLOW YELLOW complet COLOR 013 ed 06:14 URINE CLEAR CLEAR complet APPEARA 013 ed NCE 06:14 URINE NEGATIV NEG complet GLUCOSE 013 E ed - 06:14 DIPSTIC K URINE NEGATIV NEG complet BILIRUB 013 E ed IN - 06:14 DIPSTIC K URINE NEGATIV NEG complet KETONE 013 E mg/dL ed 06:14 URINE 1.025 1.005-1 complet SPECIFI 013 UNK .030 ed C 06:14 GRAVITY URINE NEGATIV NEG complet BLOOD 013 E ed 06:14 URINE 6.0 UNK 5.0-8.5 complet PH 013 ed 06:14 URINE NEGATIV NEG complet PROTEIN 013 E mg/dL ed - 06:14 DIPSTIC K URINE 0.2 NEG complet UROBILI 013 E.U./dL ed NOGEN - 06:14 DIPSTIC K URINE NEGATIV NEG complet NITRATE 013 E ed - 06:14 DIPSTIC K URINE 1+ NEG complet LEUK 013 ed ESTERAS 06:14 E URINE OCC 0 complet RBC 013 rbc/hpf ed 06:14 URINE OCC O complet WBC 013 wbc/hpf ed 06:14 URINE 5-10 0-5 complet SQUAMOU 013 #/hpf ed S CELLS 06:14 URINE 1+ O complet BACTERI 013 ed A 06:14 B-HCG Ur Ql (12-23-2012 02:05) B-HCG NEGATIV NEG complet Ur Ql 013 E ed 02:05 URINALYSIS/COMPLETE (12-23-2012 02:05) URINE YELLOW YELLOW complet COLOR 013 ed 02:05 URINE CLEAR CLEAR complet APPEARA 013 ed NCE 02:05 URINE NEGATIV NEG complet GLUCOSE 013 E ed - 02:05 DIPSTIC K URINE NEGATIV NEG complet BILIRUB 013 E ed IN - 02:05 DIPSTIC K URINE NEGATIV NEG complet KETONE 013 E mg/dL ed 02:05 URINE Less 1.005-1 complet SPECIFI 013 than or .030 ed C 02:05 equal GRAVITY to 1.005 URINE NEGATIV NEG complet BLOOD 013 E ed 02:05 URINE 6.0 UNK 5.0-8.5 complet PH 013 ed 02:05 URINE NEGATIV NEG complet PROTEIN 013 E mg/dL ed - 02:05 DIPSTIC K URINE 0.2 NEG complet UROBILI 013 E.U./dL ed NOGEN - 02:05 DIPSTIC K URINE NEGATIV NEG complet NITRATE 013 E ed - 02:05 DIPSTIC K URINE NEGATIV NEG complet LEUK 013 E ed ESTERAS 02:05 E URINE 5-10 O complet WBC 013 wbc/hpf ed 02:05 URINE 5-10 0-5 complet SQUAMOU 013 #/hpf ed S CELLS 02:05 URINE WBC IN complet OTHER 013 CLUSTER ed 02:05 S COMPREHENSIVE METABOLIC PANEL (10-20-2012 17:21) Glucose 100 74-106 complet 013 mg/dL ed Bld-mCn 17:21 c BUN 6 mg/dL 7-18 complet Bld-mCn 013 ed c 17:21 Creat 1.0 0.6-1.0 complet SerPl-m 013 mg/dL ed Cnc 17:21 ESTIMAT 81 50-200 complet ED 013 ML/MIN ed CREATIN 17:21 INE CLEARAN CE GFR 68 59- complet (ESTIMA 013 ML/MIN ed DANYELLE) 17:21 Sodium 141 136-145 complet SerPl-s 013 mmoL/L ed Cnc 17:21 Potassi 3.6 3.5-5.1 complet um 013 mmoL/L ed SerPl-s 17:21 Cnc Chlorid 102 98-107 complet e 013 mmoL/L ed SerPl-s 17:21 Cnc CO2 28 21.0-32 complet SerPl-s 013 mmoL/L .0 ed Cnc 17:21 Calcium 9.2 8.5-10. complet 013 mg/dL 1 ed SerPl-m 17:21 Cnc Prot 7.5 6.4-8.2 complet SerPl-m 013 gm/dL ed Cnc 17:21 Albumin 10-20-2 3.9 3.4-5.0 complet 013 gm/dL ed SerPl-m 17:21 Cnc Globuli 20-2 3.6 1.3-3.2 complet n 013 gm/dL ed Ser-mCn 17:21 c Albumin 10-20-2 1.1 UNK 1.1-1.8 complet /Glob 013 ed SerPl-m 17:21 Rto Bilirub 10-20-2 0.4 0.2-1.0 complet 013 mg/dL ed SerPl-m 17:21 Cnc AST 22 U/L 15-37 complet SerPl-c 013 ed Cnc 17:21 ALT 10-20- 46 U/L 30-65 complet SerPl-c 013 ed Cnc 17:21 ALP 10-20-2 49 U/L 50-136 complet SerPl-c 013 ed Cnc 17:21 Amylase SerPl-cCnc (10-20-2012 17:21) Amylase 10-20-2 43 U/L 25-115 complet 013 ed SerPl-c 17:21 Cnc LIPASE (10-20-2012 17:21) LIPASE 10-20-2 96 U/L 73-393 complet 013 ed 17:21 CBC with AUTO DIFF (10-20-2012 17:21) WBC # 20-2 5.0 4.8-10. complet Bld 013 K/MM3 8 ed Auto 17:21 RBC # 20-2 4.49 4.2-5.4 complet Bld 013 M/mm3 ed Auto 17:21 Hgb 10-20-2 13.8 12.2-16 complet Bld-mCn 013 g/dL .2 ed c 17:21 Hct Fr 10-20- 42.0 % 37.0-47 complet Bld 013 .0 ed 17:21 MCV RBC 10-20-2 93.5 fl 82.2-97 complet 013 .8 ed 17:21 MCH RBC 20-2 30.8 pg 27-31.2 complet Qn 013 ed Auto 17:21 MEAN 10-20- 32.9 31.8-35 complet CORPUSC 013 g/dl .4 ed ULAR 17:21 HGB CONC RDW RBC 20-2 12.7 % 11.5-17 complet Auto 013 .5 ed 17:21 Platele -20-2 308 142-424 complet t Bld 013 K/mm3 ed Ql 17:21 Manual MEAN -20-2 7.0 fl 7.4-10. complet PLATELE 013 4 ed T 17:21 VOLUME Granulo -20-2 79.2 % 37.0-80 complet cytes 013 .0 ed Fr Bld 17:21 Auto LYMPH % 02-20-2 12.8 % 10-50.0 complet 013 ed 17:21 Monocyt 02-20-2 7.3 % 1.7-9.3 complet es Fr 013 ed Bld 17:21 Auto Eosinop 02-20-2 0.2 % 0.1-12. complet hil Fr 013 0 ed Bld 17:21 Auto Basophi 02-20-2 0.4 % 0.1-2.0 complet ls Fr 013 ed Bld 17:21 Auto Granulo 02-20-2 3.9 1.8-7.8 complet cytes # 013 K/mm3 ed Bld 17:21 Auto Lymphoc -20-2 0.6 0.7-4.5 complet ytes Fr 013 K/mm3 ed Bld 17:21 Auto Monocyt 02-20-2 0.4 0.1-1.0 complet es # 013 K/mm3 ed Bld 17:21 Auto Eosinop 02-20-2 0.0 0.0-0.4 complet hil # 013 K/mm3 ed Bld 17:21 Auto Basophi 02-20-2 0.0 0-0.2 complet ls # 013 K/MM3 ed Bld 17:21 Auto B-HCG Ur Ql (10-20-2012 17:05) B-HCG 20-2 NEGATIV NEG complet Ur Ql 013 E ed 17:05 URINALYSIS/COMPLETE (10-20-2012 17:05) URINE 10-20-2 YELLOW YELLOW complet COLOR 013 ed 17:05 URINE 10-20-2 CLEAR CLEAR complet APPEARA 013 ed NCE 17:05 URINE 10-20-2 NEGATIV NEG complet GLUCOSE 013 E ed - 17:05 DIPSTIC K URINE 10-20-2 NEGATIV NEG complet BILIRUB 013 E ed IN - 17:05 DIPSTIC K URINE 10-20-2 NEGATIV NEG complet KETONE 013 E mg/dL ed 17:05 URINE 02-20-2 Greater 1.005-1 complet SPECIFI 013 than .030 ed C 17:05 or GRAVITY equal to 1.030 URINE 02-20-2 NEGATIV NEG complet BLOOD 013 E ed 17:05 URINE 02-20-2 5.5 UNK 5.0-8.5 complet PH 013 ed 17:05 URINE 02-20-2 TRACE NEG complet PROTEIN 013 mg/dL ed - 17:05 DIPSTIC K URINE 02-20-2 0.2 NEG complet UROBILI 013 E.U./dL ed NOGEN - 17:05 DIPSTIC K URINE 02-20-2 NEGATIV NEG complet NITRATE 013 E ed - 17:05 DIPSTIC K URINE 02-20-2 NEGATIV NEG complet LEUK 013 E ed ESTERAS 17:05 E URINE 02-20-2 OCC 0 complet RBC 013 rbc/hpf ed 17:05 URINE 02-20-2 OCC O complet WBC 013 wbc/hpf ed 17:05 URINE 02-20-2 20-50 0-5 complet SQUAMOU 013 #/hpf ed S CELLS 17:05 URINE 02-20-2 3+ O complet BACTERI 013 ed A 17:05 URINE 02-20-2 1+ OCC complet MUCUS 013 ed 17:05 URINE 02-20-2 OCC NONE complet AMORPH 013 ed SEDIMEN 17:05 T Treponema pallidum IgG Ab [Presence] in Serum by Immunoassay (06-30-2012 15:00) Trepone NON-JUANPABLO complet ma 012 CTIVE ed pallidu 15:00 m IgG Ab [Presen ce] in Serum by Immunoa ssay Treponema pallidum IgG Ab [Presence] in Serum by Immunoassay (06-30-2012 15:00) COLLECT D.BRADF complet OR 012 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 15:00 ETHNICI WHITE complet TY 012 ed 15:00 PURPOSE DIAGNOS complet OF 012 TIC ed EXAM 15:00 SPECIME BLOOD complet N 012 ed SOURCE 15:00 CHART NA complet NUMBER 012 ed 15:00 Trepone Pending complet ma 012 ed pallidu 15:00 m IgG Ab [Presen ce] in Serum by Immunoa ssay CHLAMYDIA AND GONORRHEA TESTING (01-07-2012 09:33) Chlamyd NEGATIV complet ia 012 E ed trachom 09:33 atis rRNA [Presen ce] in Unspeci fied specime n by Probe & target amplifi cation method Neisser NEGATIV complet ia 012 E ed gonorrh 09:33 oeae rRNA [Presen ce] in Unspeci fied specime n by Probe & target amplifi cation method CHLAMYDIA AND GONORRHEA TESTING (01-07-2012 09:33) COLLECT NA complet OR 012 ed 09:33 ETHNICI WHITE, complet TY 012 NON-HIS ed 09:33 PANIC KIT complet EXPIRAT 012 ed ION 09:33 DATE SYMPTOM NO complet S 012 ed 09:33 REASON REVISIT complet FOR 012 /ANNUAL ed REQUEST 09:33 FAMILY PLANNIN G VISIT SPECIME URINE complet N 012 ed SOURCE 09:33 PREGNAN NO complet T 012 ed 09:33 CHART NA complet NUMBER 012 ed 09:33 Chlamyd Pending complet ia 012 ed trachom 09:33 atis rRNA [Presen ce] in Unspeci fied specime n by Probe & target amplifi cation method Neisser Pending complet ia 012 ed gonorrh 09:33 oeae rRNA [Presen ce] in Unspeci fied specime n by Probe & target amplifi cation method Procedures Procedure DOS Code Location Performer Comment BLOOD 31980 [facility] COMPLETE INC INC AUTO&AUTO DIFRNTL WBC COMPREHEN 49802 [facility] SIVE [facility] [place] [address] [facility] G[facility] FOLIC 7 [facility] [place] [address] [facility] FREE 7 [facility] [place] [address] [facility] G[facility] THYROID 7 [facility] STIMULATI INC INC NG HORMONE TSH CYANOCOBA 78749 [facility] KELSEY 7 [facility] VITAMIN INC INC B-12 28779 [facility] G[facility] TRANSVAGI 7 [facility] NAL INC INC URINE 15596 [facility] 7 PHYSICIAN TEST S GROUP [place] [address] [facility] THYROXINE 7 [facility] TOTAL INC INC THYROID 24601 [facility] HORM 7 [facility] UPTK/THYR INC INC OID HORMONE BINDING RATIO BLOOD 70728 [facility] COUNT 7 [facility] COMPLETE INC INC AUTO&AUTO DIFRNTL WBC URNLS DIP 68009 [facility] 7 PHYSICIAN STICK/TAB S GROUP LET RGNT NON-AUTO W/O MICRSCP COLLECTIO 93560 [facility] N VENOUS 7 [facility] [place] [address] [facility]UTI[facility] THYROID 7 [facility] STIMULATI INC INC NG HORMONE TSH URINE 90894 [facility]IERRES [facility] TEST INC [place] [address] [facility]UTIERR[facility] THYROXINE 7 [facility] TOTAL INC INC COLLECTIO 83815 [facility] N VENOUS 7 [facility] BLOOD INC INC VENIPUNCT URE COMPREHEN 37676 [facility] SIVE 7 [facility] [address] [facility] THYROID 7 [facility] STIMULATI INC INC NG HORMONE TSH URNLS DIP 16001 [facility]ES 7 [facility] STICK/TAB INC INC LET REAGENT AUTO MICROSCOP Y THYROID 94690 [facility] HORM 7 [facility] UPTK/THYR INC INC OID HORMONE BINDING RATIO GONADOTRO 08578 [facility] PIN 7 [facility] CHORIONIC INC INC QUALITATI VE BLOOD 58427 [facility] COUNT 7 [facility] COMPLETE INC INC AUTO&AUTO DIFRNTL WBC BLOOD 05581 [facility] COUNT 6 [facility] COMPLETE INC INC AUTO&AUTO DIFRNTL WBC [facility]OSP[facility] G0378 [facility] NORIEGAON OBSERVATI 6 [facility] ON INC INC SERVICE PER HOUR COMPREHEN 38390 [facility] NORIEGAON SIVE 6 [facility] METABOLIC INC INC PANEL OBSERVATI 56976 FAMILY HEBERT ON CARE 6 CARE [place] DISCHARGE ASSOCIATE S MANAGEMEN T COLLECTIO 33752 [facility] N VENOUS 6 [facility] BLOOD INC INC VENIPUNCT URE COLLECTIO 51026 [facility] G[facility] N VENOUS 6 [facility] BLOOD INC INC VENIPUNCT URE BASIC 84084 [facility] GUTIERRES METABOLIC 6 [facility] PANEL INC INC CALCIUM TOTAL SBSQ 73380 FAMILY HEBERT OBSERVATI 6 CARE [place] ON ASSOCIATE CARE/DAY S 15 MINUTES HOSPITAL G0378 [facility] NORIEGAON OBSERVATI 6 [facility] ON INC INC SERVICE PER HOUR LAPAROSCO 07036 [facility] PY SURG 6 [facility] CHOLECYST INC INC ECTOMY BLOOD 26935 [facility] COUNT 6 [facility] COMPLETE INC INC AUTO&AUTO DIFRNTL WBC ANES 84972 [facility] ADALBERTO INTRAPERI 6 ANESTH AYALA TONEAL OF THE UPPER BLUE ABDOMEN W/LAPS NOS LEVEL III 18590 [facility], PICKLESIM SURG 6 [facility] PATHOLOGY GROSS&[place] [address] [facility] ABDOMINAL 6 [facility] REAL INC INC TIME W/IMAGE LIMITED HOSPITAL G0378 [facility]UTIERRES OBSERVATI 6 [facility] ON INC INC SERVICE PER HOUR INITIAL 25992 FAMILY HEBERT OBSERVATI 6 CARE [place] ON ASSOCIATE CARE/DAY S 50 [place] [address] [facility] G[facility]ERRES INFUSION 6 [facility] THERAPY/P INC INC ROPHYLAXI S /DX 1ST TO 1 HR ECG 37371 [facility] DEL RIO ROUTINE 6 [facility] W/LEAST P 12 LDS I&R ONLY URINE 69211 [facility] GUTIERRES 6 [facility] TEST INC INC VISUAL COLOR CMPRSN METHS COMPREHEN 12934 [facility] GUTIERRES SIVE 6 [facility] [place] [address] [facility] G[facility]ERR[facility] AMYLASE 6 [facility] INC INC CREATINE 63578 [facility] GUTIERRES KINASE MB 6 [facility] FRACTION INC INC ONLY CREATINE 07292 [facility]UTIERRES KINASE 6 [facility] [place] [address] [facility] GUTIERRES LIPASE 6 [place] [address] [facility] GUTIERR[facility] ABDOMEN & 6 [facility] PELVIS INC INC W/O CONTRAST MATERIAL ECG 21548 [facility] GUTIERRES ROUTINE 6 [facility] ECG INC INC W/LEAST 12 LDS TRCG ONLY W/O I&R URNLS DIP 01834 [facility]UTIERRES 6 [facility] STICK/TAB INC INC [place] [address] [facility]UTIERRES TROPONIN 6 [facility] QUANTITAT INC INC [place] BLOOD 64450 [facility]ERR[facility] COUNT 6 [facility] COMPLETE INC INC AUTO&AUTO DIFRNTL WBC RADIOLOGI 75549 [facility] C EXAM 6 MEDICAL CHEST 2 IMAGING VIEWS ASS FRONTAL&[place] [address] [facility] ABDOMEN & 6 MEDICAL PELVIS IMAGING W/O ASS CONTRAST MATERIAL ECG 88415 [facility] CAMP JR ROUTINE 6 [facility] W/LEAST P 12 LDS I&R ONLY IADNA 24795 MEDICAL MEDICAL TRICHOMON 6 [facility]AGNOSTI DIAGNOSTI [facility] VAGINALIS AMPLIFIED PROBE TECH COMPREHEN 91973 COMBINED COMBINED SIVE 6 PHYSICIAN PHYSICIAN [place] [address] COMBINED COMBINED THYROID 6 PHYSICIAN PHYSICIAN STIMULATI S LA S LA NG HORMONE TSH IADNA 63992 MEDICAL MEDICAL NEISSERIA 6 [facility]AGNOSTI DIAGNOSTI [facility] C LAB LLC GONORRHOE AE AMPLIFIED PROBE TQ CYTP C/V 51016 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 THIN 6 Y VIRI OF Y VIRI OF LYR LIZANDRO LIZANDRO PREPJ SCR H H MNL RESCR PHYS IADNA 39799 MEDICAL MEDICAL URIEL 6 DIAGNOSTI DIAGNOSTI SPECIES [facility] AMPLIFIED PROBE TQ GONADOTRO 76976 LAB VIRI LAB VIRI PIN 6 LIZANDRO LIZANDRO LUTEINIZI HOLDINGS HOLDINGS NG HORMONE HANDLG&/O 67508 FAMILY FAMILY R CONVEY 6 CARE CARE OF SPEC ASSOCIATE ASSOCIATE FOR TR S S OFFICE TO LAB IADNA 99965 MEDICAL MEDICAL CHLAMYDIA 6 DIAGNOSTI DIAGNOSTI [facility] TRACHOMAT IS AMPLIFIED PROBE TQ GONADOTRO 25185 LAB VIRI LAB VIRI PIN 6 LIZANDRO LIZANDRO FOLLICLE [facility] HOLDINGS STIMULATI NG HORMONE EXC B9 82691 [facility] LESION 6 PHYSICIAN MARIZA MRGN XCP S GROUP SK TG T/A/L 0.5 CM/< [place] [address] [facility], BORGES SURG 6 LLC PATHOLOGY GROSS&LEIGHANN ROSCOPIC EXAM IADNA 52280 [facility], [facility] NEISSERIA 6 LLC GONORRHOE AE AMPLIFIED PROBE TQ CYTP 94365 [facility], [facility] CERVICAL/ 6 [facility] VAGINAL REQ INTERP PHYSICIAN CYTP C/V 65437 [facility] AUTO THIN 6 LLC LYR PREPJ SCR MNL RESCR PHYS IADNA 18170 [facility], [facility] CHLAMYDIA 6 LLC TRACHOMAT IS AMPLIFIED PROBE TQ AMBULANCE A0429 [facility] SERVICE 5 AMBULANCE AMBULANCE BLS SERVICE SERVICE EMERGENCY TRANSPORT GROUND A0425 [facility] MILEAGE 5 AMBULANCE AMBULANCE PER SERVICE SERVICE STATUTE MILE COMPREHEN 72386 [facility] SIVE 5 [facility] METABOLIC INC INC PANEL URINE 39993 [facility]UTIERRES 5 [facility] TEST INC INC VISUAL COLOR CMPRSN METHS URNLS DIP 27465 [facility]IERRES 5 [facility] STICK/TAB INC INC LET REAGENT AUTO MICROSCOP Y BLOOD 33499 [facility] OCCULT 5 [facility] PEROXIDAS INC INC E ACTV QUAL FECES 1-3 SPEC BLOOD 81968 [facility] COUNT 5 [facility] COMPLETE INC INC AUTO&AUTO DIFRNTL WBC URINE 74848 [facility] 5 PHYSICIAN MARIZA TEST S GROUP VISUAL COLOR CMPRSN METHS THERAPEUT 94070 [facility] IC PX 1/> 5 GAR AREAS CHIROPRAC EACH 15 TIC CENTE MIN EXERCISES CHIROPRAC 45316 [facility] TIC 5 GAR MANIPULAT CHIROPRAC [place] TX TIC CENTE SPINAL 1-2 REGIONS APPL 51700 [facility] MODALITY 5 GAR 1/> AREAS CHIROPRAC TRACTION TIC CENTE MECHANICA L CREATINE 71750 [facility] GUTIERRES KINASE MB 5 [facility] FRACTION INC INC ONLY COMPREHEN 89511 [facility] G[facility] SIVE 5 [facility] METABOLIC INC INC PANEL ECG 80488 [facility] DEL RIO ROUTINE 5 [facility] W/LEAST P 12 LDS I&R ONLY BLOOD 11103 [facility]UTIERRES COUNT 5 [facility] COMPLETE INC INC AUTO&AUTO DIFRNTL WBC THERAPEUT 38829 [facility]ERR[facility] IC 5 [facility] INJECTION [place] [address] [facility] GUTIERR[facility] INFUSION 5 [facility] THERAPY/P INC INC ROPHYLAXI S /DX 1ST TO 1 HR URNLS DIP 39057 [facility]ES 5 [facility] STICK/TAB INC INC [place] [address] [facility] GUTIERR[facility] TROPONIN 5 [facility] QUANTITAT INC INC [place] CREATINE 00047 [facility]UTIERRES KINASE 5 [facility] TOTAL INC INC ECG 76029 [facility]UTIERRES ROUTINE 5 [facility] ECG INC INC W/LEAST 12 LDS TRCG ONLY W/O I&R URINE 38267 [facility]UTIERRES 5 [facility] TEST INC [place] [address] [facility] GUTIERRES INFUSION 5 [facility] THERAPY/P INC INC ROPHYLAXI S /DX 1ST TO 1 [place] [address] [facility] INFUSION 5 [facility] THERAPY INC INC PROPHYLAX IS/[place] [address] [facility] ABDOMEN & 5 MEDICAL ERNA PELVIS IMAGING W/O ASS CONTRAST MATERIAL URINE 15114 [facility] INC [place] [address] [facility] LIPASE 5 [facility] INC INC BLOOD 61123 [facility] COUNT [facility] COMPLETE INC INC AUTO&AUTO DIFRNTL WBC URNLS DIP 65995 [facility] STICK/TAB INC INC [place] [address] [facility] G[facility] AMYLASE 5 [facility] INC INC COMPREHEN 68407 [facility] SIVE [facility] METABOLIC INC INC PANEL GLUC BLD 55010 [facility] GLUC MNTR 5 [facility] DEV INC INC CLEARED FDA SPEC HOME USE URNLS DIP 23379 [facility] STICK/TAB INC INC LET REAGENT AUTO MICROSCOP Y IAADI 19532 [facility] G[facility] INFLUENZA 5 [facility] B VIRUS INC INC IAADI 17394 [facility] G[facility] INFFLUENZ 5 [facility] A A VIRUS INC INC URINE 27844 [facility] G[facility] TEST INC INC VISUAL COLOR CMPRSN METHS IADNA 57808 [facility] JR NELY GONORRHOE AE AMPLIFIED PROBE TQ CYTP C/V 55644 [facility], [facility] TH[facility] ER JR NELY LYR PREPJ SCR MNL RESCR PHYS URINE 70746 [facility] BROWN 4 PHYSICIAN MARIZA TEST S GROUP VISUAL COLOR CMPRSN METHS IADNA 26781 [facility]LAM[facility] ER JR NELY TRACHOMAT IS AMPLIFIED PROBE TQ DRUG SCR [id number] COMBINED COMBINED NOT 4 PHYSICIAN PHYSICIAN CHROMATOG S LA S LA RAPHIC; ANY NUMBER PT ENC DRUG SCRN 06818 COMBINED COMBINED QUAL TIRE SETTER 4 PHYSICIAN PHYSICIAN CLASS S LA S LA NONCHROMO TOGRAPHIC EACH URINE 04458 ANUP J ANUP J 4 G G TEST VISUAL COLOR CMPRSN METHS URINE 12022 ANUP HEBERT J 4 G G TEST VISUAL COLOR CMPRSN METHS COMPREHEN 16743 COMBINED COMBINED SIVE 4 PHYSICIAN PHYSICIAN [place] [address] MARCOS MARCOS THYROID 4 R H R H STIMULATI NG HORMONE TSH URINE 18609 MARCOS MARCOS 4 R H R H TEST VISUAL COLOR CMPRSN METHS BLOOD 83848 MARCOS MARCOS COUNT 4 R H R H COMPLETE AUTO&AUTO DIFRNTL WBC URINE 93181 [facility] INC [place] [address] [facility] LIPASE 3 [facility] INC INC THERAPEUT 68560 [facility] IC 3 [facility] INJECTION INC INC IV PUSH EACH NEW DRUG BLOOD 99297 [facility] COUNT 3 [facility] COMPLETE INC INC AUTO&AUTO DIFRNTL WBC URNLS DIP 17229 [facility] NORIEGAON [facility] STICK/TAB INC [place] [address] [facility] G[facility] INFUSION 3 [facility] THERAPY/P INC INC ROPHYLAXI S /DX 1ST TO 1 [place] [address] [facility] AMYLASE 3 [facility] INC INC COMPREHEN 60436 [facility] G[facility] SIVE 3 [facility] [place] [address] STEPHANIE BROWN TRANSVAGI 3 [facility]IZ[facility] MARIZA NAL URINE 90886 STEPHANIE BROWN 3 [facility]A [facility] [place] V[place] [address] [facility] TRANSVAGI 3 [facility] [place] [address] STEPHANIE BROWN TRANSVAGI 3 [facility] MARIZA NAL GONADOTRO 22383 [facility] G[facility] PIN 3 [facility] CHORIONIC INC INC QUALITATI VE URINE 41770 BROWN BROWN 3 MARIZA MARIZA TEST VISUAL COLOR CMPRSN METHS URINE 33952 ANUP Whit[place] 3 G G TEST VISUAL COLOR CMPRSN METHS BLOOD 16701 ANUP [place] COUNT 3 G G COMPLETE AUTO&AUTO DIFRNTL WBC CULTURE 33808 [facility] BCT 3 [facility] ISOL&PRSM INC INC PTV ID ISOLATE EA URINE CULTURE 48252 [facility] BACTERIAL 3 [facility] INC INC QUANTTATI VE COLONY COUNT URINE URINE 59385 [facility] G[facility] TEST INC INC VISUAL COLOR CMPRSN METHS SUSCEPTIB 57294 [facility] LTY STDY 3 [facility] ANTIMICRB INC INC IAL MICRO/AGA R DILUTJ URNLS DIP 64213 [facility] STICK/TAB INC INC LET REAGENT AUTO MICROSCOP Y URINE 64443 ANUP [place] 3 G G TEST VISUAL COLOR CMPRSN METHS IAADI 92935 [facility] INFFLUENZ 3 [facility] A A VIRUS INC INC IAADI 71444 [facility] G[facility] INFLUENZA 3 [facility] [place] [address] [facility] LIPASE 3 [facility] INC INC THERAPEUT 06244 [facility] G[facility] IC 3 [facility] INJECTION INC INC IV PUSH EACH NEW DRUG RADIOLOGI 55799 [facility] C EXAM 3 [facility] CHEST 2 INC INC VIEWS FRONTAL&L ATERAL CULTURE 38706 [facility] BACTERIAL 3 [facility] BLOOD INC INC AEROBIC W/ID ISOLATES BLOOD 13056 [facility] COUNT 3 [facility] COMPLETE INC INC AUTO&AUTO DIFRNTL WBC URNLS DIP 34782 [facility] STICK/TAB INC [place] [address] [facility] G[facility] INFUSION 3 [facility] THERAPY/P INC INC ROPHYLAXI S /DX 1ST TO 1 HR CULTURE 02867 [facility] [facility]ES BACTERIAL 3 [facility] INC INC QUANTTATI VE COLONY COUNT URINE URINE 62396 [facility] GUTIERRES 3 [facility] TEST INC INC [place] [address] [facility] GUTIERRES AMYLASE 3 [facility] INC COMPREHEN 55688 [facility] GUTIERRES SIVE 3 [facility] METABOLIC INC INC PANEL INJECTION J2405 [facility] GUTIERRES 3 [facility] ONDANSETR INC INC ON HCL [place] 1 [place] [address] BH[facility] GUTIERRES INFUSION 3 [facility] THERAPY/P INC INC ROPHYLAXI S /DX 1ST TO 1 HR THERAPEUT 76145 [facility] GUTIERRES IC 3 [facility] INJECTION INC INC IV PUSH EACH NEW DRUG BLOOD 69317 BH[facility] GUTIERRES COUNT 3 [facility] COMPLETE INC INC AUTO&AUTO DIFRNTL WBC URNLS DIP 02309 BH[facility] GUTIERRES 3 [facility] STICK/TAB INC INC [place] [address] BH[facility]IK GUTIERRES AMYLASE 3 [facility] INC INC COMPREHEN 69965 BH[facility]IK GUTIERRES SIVE 3 [facility] METABOLIC INC INC PANEL INJECTION J2405 [facility] GUTIERRES 3 [facility] ONDANSETR INC INC ON HCL PER 1 MG 3D 04388 BHAVIK GUTIERRES RENDERING 3 [facility] INC INC W/INTERP& POSTPROC DIFF WORK STATION URINE 83198 BH[facility] GUTIERRES 3 [facility] TEST INC INC VISUAL COLOR CMPRSN METHS IAADI 23733 BH[facility]IK GUTIERRES INFFLUENZ 3 [facility] A A VIRUS INC INC IAADI 42708 BH[facility] GUTIERRES INFLUENZA 3 [facility] [place] [address] BHAVIK GUTIERRES LIPASE 3 [place] [address] JOSE ENRIQUE JOSE ENRIQUE ABDOMEN & 3 MILLA MILLA PELVIS W/O CONTRAST MATERIAL BLOOD 06935 FAMILY FAMILY COUNT 2 CARE CARE COMPLETE ASSOCIATE ASSOCIATE AUTO&AUTO S S DIFRNTL WBC GONADOTRO 33279 BH[facility]IK GUTIERRES PIN 2 [facility] CHORIONIC INC INC QUALITATI VE URINE 46788 FAMILY CHRISTIANSON 2 CARE JAM TEST ASSOCIATE VISUAL S COLOR CMPRSN METHS URNLS DIP 98278 FAMILY FAMILY 2 CARE CARE STICK/TAB ASSOCIATE ASSOCIATE LET RGNT S S NON-AUTO W/O MICRSCP CULTURE 20829 COMBINED COMBINED BACTERIAL 2 PHYSICIAN PHYSICIAN S LA S LA QUANTTATI VE COLONY COUNT URINE ANTIBODY 24991 BHAVIK GUTIERRES HELICOBAC 2 [facility] TER INC INC PYLORI GENERAL 12404 BHAVIK GUTIERRES HEALTH 2 [facility] [place] [address] BH[facility] GUTIERRES THYROID 2 [facility] STIMULATI [place] [address] BH[facility]IK GUTIERRES THYROXINE 2 [facility] TOTAL INC INC THYROID 74556 BH[facility]IK GUTIERRES HORM 2 [facility] UPTK/THYR INC INC OID HORMONE BINDING RATIO BLOOD 86596 ANUP Whitmore COUNT 2 G G COMPLETE AUTO&AUTO DIFRNTL WBC CONTRACEP S4993 BH[facility]IK THAO 2 [facility] CONTROL CONTRACEP A4267 BHAVIK THAO 2 [facility] CONDOM MALE EACH URINE 24844 BH[facility]IK GUTIERRES 2 [facility] [place] [address] [place] JOSE ENRIQUE ABDOMINAL 2 MEDICAL MILLA REAL IMAGING TIME ASS W/IMAGE LIMITED BLOOD 51445 BH[facility]IK GUTIERRES COUNT 2 [facility] COMPLETE INC INC AUTO&[place] [address] BH[facility]IK GUTIERRES TROPONIN 2 [facility] QUANTITAT INC INC BRAYDEN URNLS DIP 24167 [facility] GUTIERRES 2 [facility] STICK/TAB INC INC LET REAGENT AUTO MICROSCOP Y ECG 01740 ZOË CAMP JR ROUTINE 2 DWI DWI ECG W/LEAST 12 LDS I&R ONLY URINE 48720 [facility] GUTIERRES 2 [facility] TEST INC INC VISUAL COLOR CMPRSN METHS ECG 36564 BHAVIK GUTIERRES ROUTINE 2 [facility] ECG INC INC W/LEAST 12 LDS TRCG ONLY W/O I&[place] [address] BHAVIK GUTIERRES LIPASE 2 [facility] INC INC CREATINE 75841 BH[facility]IK GUTIERRES KINASE 2 [facility] TOTAL INC INC CREATINE 85444 BHAVIK GUTIERRES KINASE MB 2 [facility] [place] [address] BHAVIK GUTIERRES AMYLASE 2 [facility] INC INC COMPREHEN 86095 BHAVIK GUTIERRES SIVE 2 [facility] METABOLIC INC INC PANEL CYTP 23768 PATHOLOGY BORGES CERV/VAG 2 & LANE AUTO THIN CYTOLOGY LAYER LAB PREP MNL SCREEN CYTP 84826 PATHOLOGY BORGES CERVICAL/ [address] VAGINAL CYTOLOGY REQ LAB INTERP PHYSICIAN IADNA 07092 BHAVIK GUTIERRES CHLAMYDIA 2 [facility] TRACHOMAT IS AMPLIFIED PROBE TQ IADNA 13702 BHAVIK GUTIERRES NEISSERIA 2 FORMER[facility] NAMED [facility] GONORRHOE AE AMPLIFIED PROBE TQ INJ J1055 BHAVIK GUTIERRES MDRXYPRGE 2 [facility] ACTAT CNTRACPT USE 150 MG BLOOD 49844 FAMILY FAMILY COUNT 2 CARE CARE COMPLETE ASSOCIATE ASSOCIATE AUTO&AUTO S S DIFRNTL WBC INJ J1055 BHAVIK GUTIERRES MDRXYPRGE 1 [facility] CNTRACPT USE 150 MG URINE 06410 BHAVIK GUTIERRES 1 [facility] VISUAL COLOR CMPRSN METHS INJ J1055 BHAVIK GUTIERRES MDRXYPRGE 1 [facility] ACTAT CNTRACPT USE 150 MG NONEMERGE A0100 [place] CAB NCY 1 COMMUNITY TRANSPORT ACTION ATION; TAXI IADNA 08748 MEDICAL MEDICAL CHLAMYDIA 1 [facility] TRACHOMAT IS AMPLIFIED PROBE TQ IADNA 64507 MEDICAL MEDICAL NEISSERIA 1 [facility] GONORRHOE AE AMPLIFIED PROBE TQ IADNA NOS 83510 MEDICAL MEDICAL 1 DIAGNOSTI DIAGNOSTI AMPLIFIED [facility] PROBE TQ EACH ORGANISM BLOOD 96454 FAMILY FAMILY COUNT 1 CARE CARE COMPLETE ASSOCIATE ASSOCIATE AUTO&AUTO S S DIFRNTL WBC IADNA 52071 MEDICAL MEDICAL URIEL 1 [facility]AGNOSTI DIAGNOSTI SPECIES [facility] AMPLIFIED PROBE TQ IADNA 62199 MEDICAL MEDICAL GARDNEREL 1 DIAGNOSTI DIAGNOSTI LA [facility] VAGINALIS AMPLIFIED PROBE TQ URINE 89594 FAMILY MULBERRY 1 CARE [facility] TEST ASSOCIATE VISUAL S COLOR CMPRSN METHS IADNA 76747 BHAVIKWHITNEY GUTIERRES NEISSERIA 1 [facility] GONORRHOE AE AMPLIFIED PROBE TQ CYTP 59429 PATHOLOGY PATHOLOGY CERV/VAG 1 & & AUTO THIN CYTOLOGY CYTOLOGY LAYER LAB LAB PREP MNL SCREEN IADNA 17484 BHAVIK GUTIERRES CHLAMYDIA 1 FORMERLY NAMED [facility] TRACHOMAT IS AMPLIFIED PROBE TQ INJ J1055 BHAVIK BHAVIK MDRXYPRGE 1 ON LICENSE OF [facility] ACTAT CNTRACPT USE 150 MG CONTRACEP A4267 BHAVIK GUTIERRES TIVE 1 [facility] CONDOM MALE EACH INJ J1055 BHAVIK NORIEGAON MDRXYPRGE 1 ON LICENSE OF [facility] ACTAT CNTRACPT USE 150 MG NONEMERGE A0100 [facility] CAB NCY 1 COMMUNITY TRANSPORT ACTION ATION; TAXI INJ J1055 BHAVIK BHAVIK MDRXYPRGE 0 ON LICENSE OF [facility] ACTAT CNTRACPT USE 150 MG CYTP 97007 PATHOLOGY PATHOLOGY CERV/VAG 0 & & AUTO THIN CYTOLOGY CYTOLOGY LAYER LAB LAB PREP MNL SCREEN INJ J1055 BHAVIKWHITNEY GUTIERRES MDRXYPRGE 0 [facility] CNTRACPT USE 150 MG INJ J1055 BHAVIK GUTIERRES MDRXYPRGE 0 ON LICENSE OF [facility] ACTAT CNTRACPT USE 150 MG CYTP 70809 PATHOLOGY PATHOLOGY CERVICAL/ 0 & & VAGINAL CYTOLOGY CYTOLOGY REQ LAB LAB INTERP PHYSICIAN CONTRACEP A4267 BHAVIK GUTIERRES TIVE 0 ON LICENSE OF [facility] CONDOM MALE EACH INJ J1055 BHAVIK GUTIERRES MDRXYPRGE 0 [facility] ACTAT CNTRACPT USE 150 MG CYTP 49110 PATHOLOGY PATHOLOGY CERV/VAG 0 & & AUTO THIN CYTOLOGY CYTOLOGY LAYER LAB LAB PREP MNL SCREEN IADNA 47783 BHAVIK GUTIERRES CHLAMYDIA 0 FORMERLY NAMED [facility] TRACHOMAT IS AMPLIFIED PROBE TQ IADNA 52334 BHAVIK GUTIERRES NEISSERIA 0 FORMERLY NAMED [facility] GONORRHOE AE AMPLIFIED PROBE TQ CLOSURE 8659 BHAVIK GUTIERRES SKIN&SUBC 0 [facility] UTANEOUS INC INC TISSUE OTHER SITES SIMPLE 82806 HALIMA WEHRMAN REPAIR 0 EMERGENCY III, SCALP/NEC SERVICES OMAIRA K/AX/JULIANNE T/TRUNK ASSOCIATE 2.5CM/< S URNLS DIP 77781 [facility] GUTIERRES 0 [facility] STICK/TAB INC INC LET REAGENT AUTO MICROSCOP Y BLOOD 73943 BH[facility]IK GUTIERRES COUNT 0 [facility] COMPLETE INC INC AUTO&[place] [address] BHAVIK GUTIERRES LIPASE 0 [place] [address] BHAVIK GUTIERRES AMYLASE 0 [facility] INC INC COMPREHEN 28793 BHAVIK GUTIERRES SIVE 0 [facility] METABOLIC INC INC PANEL URINE 33144 BHAVIK GUTIERRES 0 [facility] TEST INC INC VISUAL COLOR CMPRSN METHS COMPRE 86537 JADA ELIAS, AUDIOMETR 9 DUGLAS Arroyo Y THRESHOLD EVAL SP RECOGNIJ ACOUSTIC 79962 JADA ELIAS, REFLEX 9 DUGLAS Arroyo THRESHOLD TYMPANOME 75536 JADA ELIAS, TRY 9 DUGLAS Arroyo INJ J1055 [facility] MDRXYPRGE [address] [facility] ACTAT BANK ACCT CNTRACPT USE 150 MG BLOOD 32231 FAMILY NORRISBERRY, COUNT 9 CARE OSIRIS T COMPLETE ASSOCIATE AUTO&[place] [address] [facility] ENRIQUE, ABDOMINAL 9 MEDICAL GAMA REAL IMAGING TIME ASSOCIATE W/[place] [address] BHAVIKWHITNEY GUTIERRES TRANSVAGI 9 [facility] NAL INC INC COMPREHEN 23983 COMBINED COMBINED SIVE 9 PHYSICIAN PHYSICIAN METABOLIC S LAB S LAB PANEL ANTIBODY 39623 COMBINED COMBINED HELICOBAC [address] [place] [address] COMBINED COMBINED AMYLASE 9 PHYSICIAN PHYSICIAN S LAB S LAB 3D 24110 [facility] MONTEMAYOR, RENDERING 9 MEDICAL KIM P IMAGING W/INTERP& [place]OCI[place] [address] [place] ALBINA, MAXILLOFA 9 MEDICAL KIM P CIAL W/O IMAGING CONTRAST ASSOCIATE MATERIAL S 3D 38694 BHAVIK GUTIERRES RENDERING 9 [facility] W/INTERP INC INC & [place] [address] BHAVIK GUTIERRES HEAD/BRAI 9 [facility] N W/O INC INC CONTRAST MATERIAL URNLS DIP 75553 BH[facility] GUTIERRES 9 [facility] STICK/TAB INC INC LET REAGENT AUTO MICROSCOP Y URINE 89417 [facility] GUTIERRES 9 [facility] TEST INC INC VISUAL COLOR CMPRSN METHS CONTRACEP A4267 [facility] BH[facility]IK TIVE 9 [facility] CONDOM BANK ACCT MALE EACH INJ J1055 [facility]IK MDRXYPRGE 9 [facility] ACTAT BANK ACCT CNTRACPT USE 150 MG BLOOD 65483 FAMILY MARCOS, COUNT 9 CARE R LISETH COMPLETE ASSOCIATE AUTO&AUTO S DIFRNTL WBC FRAMES V2020 SALTY BILLIE, PURCHASES 9 VISION MELANIE M FITTING 00895 SALTY SCIASHLEY, SPECTACLE 9 VISION MELANIE M S XCPT APHAKIA MONOFOCAL 1 VISN V2103 SALTY WISE, PLANO 9 VISION MELANIE M TO+/-4.00 D SPHER 0.12-2.00 D CYL EA OPHTH [address] [facility] 9 VISION MELANIE M XM&EVAL COMPRHNSV ESTAB PT 1/> URINE 69386 [facility] VIVIAN 9 [facility] TEST CENTRAL DEPT VISUAL BANK ACCT COLOR CMPRSN METHS INJ J1055 [facility] VIVIAN MDRXYPRGE 9 [facility] CENTRAL DEPT ACTAT BANK ACCT CNTRACPT USE 150 MG BLOOD 66477 BHAVIK GUTIERRES COUNT 9 [facility] COMPLETE INC INC AUTO&AUTO DIFRNTL WBC URNLS DIP 23631 [facility] GUTIERRES 9 [facility] STICK/TAB INC INC LET REAGENT AUTO MICROSCOP Y IAADI 19363 BH[facility]IK GUTIERRES INFFLUENZ 9 [facility] A A VIRUS INC INC IAADI 33662 BHAVIK BHAVIK INFLUENZA 9 [facility] B VIRUS INC INC URINE 88590 BH[facility]IK GUTIERRES 9 [facility] TEST INC INC VISUAL COLOR CMPRSN METHS COMPREHEN 96512 BHAVIK GUTIERRES SIVE 9 [facility] [address] BHAVIK GUTIERRES STREPTOCO 9 [facility] CCUS INC INC GROUP A INJ J1055 [facility]IK MDRXYPRGE 9 [facility] ACTAT BANK ACCT CNTRACPT USE 150 MG CYTP 87955 [facility] CERV/VAG 9 [facility] HEALTH AUTO THIN CENTRAL CENTER LAYER BANK ACCT PREP MNL SCREEN IADNA 78672 [facility] CHLAMYDIA 9 [facility] TRACHOMAT BANK ACCT IS AMPLIFIED PROBE TQ INJ J1055 [facility]IK MDRXYPRGE 9 [facility] [place] ACTAT BANK ACCT CNTRACPT USE 150 MG INJ J1055 [facility]IK MDRXYPRGE 8 [facility] [place] ACTAT BANK ACCT CNTRACPT USE 150 MG INJ J1055 [facility]IK MDRXYPRGE [address] [place] [address] ACTAT BANK ACCT CNTRACPT USE 150 MG INJ J1055 [facility] BHAVIK MDRXYPRGE [address] [place] [address] ACTAT BANK ACCT CNTRACPT USE 150 MG CONTRACEP A4267 [facility] BHAVIK TIVE [address] [place] [address] CONDOM BANK ACCT MALE EACH Encounters Encounter Start End Date Code Location Performer Type Date [facility] BHAVIK - 7 7 [facility]EN [facility] BHAVIK - 7 7 [facility] OUTPATIEN [facility] T OFFICE 72802 [facility] 7 7 PHYSICIAN T VISIT S GROUP 25 MINUTES HOSPITAL BHAVIK - 7 7 [facility] OUTPATIEN [facility] T EMERGENCY 42450 MARIAH HERMAN 7 7 PHYSICIAN U DEPARTMEN S, [facility] T VISIT HIGH/URGE NT SEVERITY EMERGENCY 14107 BHAVIK 7 7 [facility] DEPARTMEN [facility] T VISIT LIMITED/M INOR PROB HOSPITAL BHAVIK - 7 7 [facility] OUTPATIEN [facility] T OFFICE 16001 [facility] MELANIE OUTPATIEN 6 6 PHYSICIAN T VISIT S GROUP 15 MINUTES OFFICE 72132 [facility] ANUP OUTPATIEN 6 6 CARE KAY[place]AY T VISIT ASSOCIATE 15 S MINUTES OFFICE 37735 [facility] KARRIE TOYessenia CONSULTAT 6 6 PHYSICIAN ION S GROUP NEW/ESTAB PATIENT 30 MIN HOSPITAL BHAVIK - 6 6 [facility] OUTPATIEN INC T EMERGENCY 34478 BHAVIK DEPT 6 6 [facility] VISIT INC HIGH SEVERITY& THREAT FUNCJ EMERGENCY 23887 MARIAH OLIVEIRA DEPT 6 6 PHYSICIAN LEIGHANN VISIT S, [facility] HIGH SEVERITY& THREAT FUNCJ PERIODIC 01697 [facility] PREVENTIV 6 6 PHYSICIAN E MED EST S GROUP PATIENT 18-39 YRS EMERGENCY 88762 MARIAH HERMAN 5 5 PHYSICIAN Mary UMANZOR [facility] S, [facility] T VISIT MODERATE SEVERITY OFFICE 73019 FAMILY RODRÍGUEZ OUTPATIEN 5 5 CARE R H T VISIT ASSOCIATE 15 S MINUTES HOSPITAL BHAVIK - 5 5 [facility] OUTPATIEN INC T EMERGENCY 83468 MARIAH OLIVEIRA 5 5 PHYSICIAN [facility] S, [facility] T VISIT HIGH/URGE NT SEVERITY EMERGENCY 96143 BHAVIK 5 5 [facility] DEPARTMEN INC T VISIT MODERATE SEVERITY OFFICE 54393 [facility] STEPHANIE LOPEZ 5 5 PHYSICIAN MARIZA T VISIT S GROUP 15 MINUTES OFFICE 62461 [place] MARTINEZ OUTPATIEN 5 5 [facility] T VISIT CHIROPRAC 15 TIC CENTE MINUTES EMERGENCY 62193 MARIAH OLIVEIRA 5 5 PHYSICIAN [facility] S, [facility] T VISIT HIGH/URGE NT SEVERITY HOSPITAL BHAVIK - 5 5 [facility] OUTPATIEN INC T OFFICE 83986 BHAVIK SLAUGHTER OUTPATIEN 5 5 [facility] VISIT HOSPITAL 15 MINUTES HOSPITAL BHAVIK - 5 5 [facility] OUTPATIEN INC T EMERGENCY 79689 BHAVIK 5 5 [facility] DEPARTMEN INC T VISIT MODERATE SEVERITY EMERGENCY 40464 BHAVIK OBRIENUYOMADE 5 5 [facility] T VISIT P MODERATE SEVERITY EMERGENCY 96400 BHAVIK 5 5 [facility] DEPARTMEN INC T VISIT LOW/MODER SEVERITY HOSPITAL BHAVIK - 5 5 [facility] OUTPATIEN [facility] T OFFICE 71361 BHAVIK WEBB OUTPATIEN [address] MINUTES OFFICE 71131 [facility] BROWN OUTPATIEN 4 4 PHYSICIAN MARIZA T VISIT S GROUP 25 MINUTES HOSPITAL BHAVIK - 4 4 [facility] OUTPATIEN INC T EMERGENCY 32999 BHAVIK 4 4 [facility] DEPARTMEN INC T VISIT LOW/MODER SEVERITY EMERGENCY 11752 ELKIN OLIVEIRA 4 4 [facility] DEPARTMEN EMERGENCY T VISIT PHYS HIGH/URGE NT SEVERITY EMERGENCY 67217 BHAVIK 4 4 [facility] DEPARTMEN INC T VISIT LOW/MODER SEVERITY HOSPITAL BHAVIK - 4 4 [facility] OUTPATIEN INC T OFFICE 23912 ANUP Whitmore OUTPATIEN 4 4 G G T VISIT 25 MINUTES OFFICE 41502 ANUP Whitmore OUTPATIEN 4 4 G G T VISIT 15 MINUTES EMERGENCY 61473 BHAVIK 4 4 [facility] DEPARTMEN INC T VISIT MODERATE SEVERITY HOSPITAL BHAVIK - 4 4 [facility] OUTPATIEN INC T OFFICE 55772 MARCOS MARCOS OUTPATIEN 4 4 R H R H T VISIT 15 MINUTES EMERGENCY 96327 JOSH MORENO 4 4 III AMITA III [facility] DEPARTMEN T VISIT HIGH/URGE NT SEVERITY HOSPITAL BHAVIK - 4 4 [facility] OUTPATIEN INC T EMERGENCY 44217 BHAVIK 4 4 [facility] DEPARTMEN INC T VISIT LOW/MODER SEVERITY Emergency CAIN Oliveira MD (ER) 3 06:19 3 08:15 [facility] EMERGENCY 46041 BHAVIK 3 3 [facility] DEPARTMEN INC T VISIT MODERATE SEVERITY HOSPITAL BHAVIK - 3 3 [facility] OUTPATIEN INC T EMERGENCY 39736 MELANIE OLIVEIRA 3 3 LEIGHANN LEIGHANN DEPARTMEN T VISIT HIGH/URGE NT SEVERITY OFFICE 12998 STEPHANIE PRECIADOE OUTPATIEN 3 3 MARIZA MARIZA T VISIT 15 MINUTES OFFICE 89728 STEPHANIE BROWN OUTPATIEN 3 3 MARIZA MARIZA T NEW 45 MINUTES HOSPITAL BHAVIK - 3 3 [facility] OUTPATIEN INC T OFFICE 00529 ANUP Whitmore OUTPATIEN 3 3 G G T VISIT 15 MINUTES OFFICE 21528 ANUP Whitmore OUTPATIEN 3 3 G G T VISIT 15 MINUTES OFFICE 23797 ANUP [place] OUTPATIEN 3 3 G G T VISIT 15 MINUTES OFFICE 32738 ANUP Whitmore OUTPATIEN 3 3 G T VISIT 25 MINUTES Emergency CAIN Oliveira MD (ER) 3 02:23 3 02:39 [facility] EMERGENCY 88228 MELANIE OLIVEIRA 3 3 [facility] DEPARTMEN T VISIT HIGH/URGE NT SEVERITY HOSPITAL BHAVIK - 3 3 [facility] OUTPATIEN INC T EMERGENCY 05049 BHAVIK 3 3 [facility] DEPARTMEN INC T VISIT LIMITED/M INOR PROB OFFICE 41058 ANUP Whitmore OUTPATIEN 3 3 G G T VISIT 15 MINUTES OFFICE 37321 ANUP Whit[place] OUTPATIEN 3 3 G G T VISIT 25 MINUTES Emergency CAIN MORENO (ER) 3 17:22 3 18:29 [facility] EMERGENCY 07309 BHAVIK 3 3 [facility] DEPARTMEN INC T VISIT MODERATE SEVERITY HOSPITAL BHAVIK - 3 3 [facility] OUTPATIEN INC T EMERGENCY 58071 JOSH MORENO DEPT 3 3 III AMITA III AMITA VISIT HIGH SEVERITY& THREAT FUNJ EMERGENCY 89238 BHAVIK 3 3 [facility] DEPARTMEN INC T VISIT HIGH/URGE NT SEVERITY EMERGENCY 34617 MELANIE OLIVEIRA DEPT 3 3 LEIGHANN LEIGHANN VISIT HIGH SEVERITY& THREAT [facility] BHAVKI - 3 3 [facility] OUTPATIEN INC T OFFICE 33316 FAMILY OUTPATIEN 2 2 CARE T VISIT ASSOCIATE 15 S MINUTES OFFICE 79494 BHAVIK GUTIERRES OUTPATIEN 2 2 [facility] VIS[facility] CENTER CENTER 10 MINUTES OFFICE 00316 FAMILY OUTPATIEN 2 2 CARE T VISIT ASSOCIATE 15 S MINUTES [facility] BHAVIK - 2 2 [facility] OUTPATIEN INC T OFFICE 91237 BHAVIK GUTIERRES OUTPATIEN 2 2 [facility] T VISIT CENTER CENTER 15 MINUTES HOSPITAL BHAVIK - 2 2 [facility] OUTPATIEN INC T OFFICE 56044 ANUP [place] OUTPATIEN 2 2 G G T VISIT 15 MINUTES OFFICE 17108 BHAVIK GUTIERRES OUTPATIEN 2 2 [facility] T VISIT CENTER CENTER 10 MINUTES HOSPITAL BHAVIK - 2 2 [facility] OUTPATIEN INC T OFFICE 08882 WILEY JAMA OUTPATIEN 2 2 VIN VIN T VISIT 15 MINUTES HOSPITAL BHAVIK - 2 2 [facility] OUTPATIEN INC T EMERGENCY 24902 BHAVIK 2 2 [facility] DEPARTMEN INC T VISIT MODERATE SEVERITY EMERGENCY 44210 HALIMA OLIVEIRA DEPT 2 2 EMERGENCY LEIGHANN VISIT SERVICES HIGH SEVERITY& THREAT [facility] OFFICE 72303 ANUP Whitmore OUTPATIEN 2 2 T VISIT 15 MINUTES PERIODIC 26866 BHAVIK GUTIERRES PREVENTIV 2 2 [facility] EST CENTER CENTER PATIENT 18-39 YRS OFFICE 22097 ANUP Myranda ANUP [place] OUTPATIEN 2 2 T VISIT 25 MINUTES OFFICE 90554 BHAVIK GUTIERRES OUTPATIEN 2 2 [facility] 10 MINUTES OFFICE 25960 FAMILY MARCOS OUTPATIEN 2 2 CARE R H T VISIT ASSOCIATE 15 S MINUTES OFFICE 22354 BHAVIK GUTIERRES OUTPATIEN 1 1 [employer] [facility] [employer] HE[facility] T VISIT CENTER CENTER 10 MINUTES OFFICE 85919 BHAVIK GUTIERRES OUTPATIEN 1 1 [employer] [facility] [employer] [facility] CENTER 15 MINUTES OFFICE 58981 BHAVIK GUTIERRES OUTPATIEN 1 1 [employer] [facility] [employer] [facility] CENTER 10 MINUTES OFFICE 06621 FAMILY ANUP Whitmore OUTPATIEN 1 1 CARE T VISIT ASSOCIATE 15 S MINUTES OFFICE 68736 FAMILY LIZZIE OUTPATIEN 1 1 [facility]ARE [facility]AR[facility] T VISIT ASSOCIATE 15 S MINUTES PERIODIC 90669 BHAVIK GUTIERRES PREVENTIV 1 1 [facility] PATIENT 18-39 YRS OFFICE 52007 BHAVIK GUTIERRES OUTPATIEN 1 1 [facility] 10 MINUTES OFFICE 74556 BHAVIK GUTIERRES OUTPATIEN 0 0 [facility] 10 MINUTES OFFICE 88851 BHAVIK GUTIERRES OUTPATIEN 0 0 [employer] [facility] [employer] [facility] CENTER 15 MINUTES OFFICE 09498 BHAVIK GUTIERRES OUTPATIEN 0 0 [employer] [facility] [employer] [facility] T [facility] CENTER 15 MINUTES OFFICE 64152 BHAVIK GUTIERRES OUTPATIEN 0 0 [facility] 10 MINUTES OFFICE 44834 FAMILY Myranda HEBERT OUTPATIEN 0 0 CARE G T VISIT ASSOCIATE 15 S MINUTES OFFICE 90365 BHAVIK GUTIERRES OUTPATIEN 0 0 [facility]IT [facility] 15 MINUTES OFFICE 69231 Myranda CAMPOSEN 0 0 CARE G T VISIT ASSOCIATE 15 S MINUTES PERIODIC 11967 BHAVIK GUTIERRES PREVENTIV 0 0 [facility] EST [facility] PATIENT 18-39 YRS EMERGENCY 29166 HALIMA MORENO 0 0 EMERGENCY III, DEPARTMEN SERVICES OMAIRA T VISIT HIGH/URGE ASSOCIATE NT S SEVERITY EMERGENCY 32714 [facility] 0 0 [facility] T VISIT MODERATE SEVERITY [facility]OSPITAL [facility] - 0 0 [facility] - 0 0 [facility] INC T EMERGENCY 90008 [facility] 0 0 [facility] DEPART[facility] T VISIT HIGH/URGE NT SEVERITY OFFICE 48656 JADA ELIAS OUTPATIEN 9 9 [facility]AS ARDON G T VISIT 15 MINUTES OFFICE 02318 JADA ELIAS OUTPATIEN 9 9 DUGLAS Arroyo T NEW 20 MINUTES OFFICE 12256 Myranda CAMPOS 9 9 CARE G T VISIT ASSOCIATE 15 S MINUTES OFFICE 18247 [facility] BHAVIK OUTPATIEN 9 9 HEALTH CO HEALTH T VISIT [facility] 10 BANK ACCT MINUTES OFFICE 35715 JOHN MISTRY 9 9 CARE OSIRIS T T VISIT ASSOCIATE 25 S MINUTES OFFICE 97556 Myranda CAMPOS 9 9 CARE G T VISIT ASSOCIATE 15 S MINUTES HOSPITAL [facility] - 9 9 [facility] OUTPATIEN INC T OFFICE 30005 Myranda CAMPOS 9 9 CARE G T VISIT ASSOCIATE 25 S MINUTES EMERGENCY 88788 [facility] 9 9 [facility] DEPARTMEN INC T VISIT LOW/MODER SEVERITY HOSPITAL [facility] - 9 9 [facility] OUTPATIEN INC T EMERGENCY 11161 HALIMA OLIVEIRA, DEPT 9 9 EMERGENCY [facility] VISIT SERVICES HIGH SEVERITY& ASSOCIATE THREAT S [facility] EMERGENCY 65888 HALIMA OLIVEIRA, 9 9 EMERGENCY [facility] SERVICES T VISIT HIGH/URGE ASSOCIATE NT S SEVERITY HOSPITAL [facility] - 9 9 [facility] OUTPATI[facility] INC T OFFICE 94262 [facility] OUTPATIEN 9 9 [facility] 10 BANK ACCT MINUTES OFFICE 19707 FAMILY MARCOSJOHN Pinto 9 9 CARE R LISETH T VISIT ASSOCIATE 15 S MINUTES OFFICE 20172 [facility] VIVIAN LOPEZ 9 9 [facility]ALTH [facility] T NEW 20 CENTRAL DEPT MINUTES BANK ACCT EMERGENCY 31928 BHAVIK 9 9 [facility] DEPARTMEN INC T VISIT MODERATE SEVERITY EMERGENCY 32466 HALIMA OLIVEIRA, 9 9 EMERGENCY [facility] SERVICES T VISIT HIGH/URGE ASSOCIATE NT S SEVERITY HOSPITAL BHAVIK - 9 9 [facility] OUTPATIEN INC T PERIODIC 69641 [facility] PREVENTIV 9 9 [facility] [place] [facility] EST [facility] PATIENT BANK ACCT 18-39 YRS EMERGENCY 18996 DONAL OLIVEIRA, 9 9 [facility] CORPORATI T VISIT ON MODERATE SEVERITY EMERGENCY 89437 [facility] 9 9 [facility] DEPARTMEN INC T VISIT LIMITED/M [facility] - 9 9 [facility] OUTPATIEN INC T OFFICE 06415 [facility] OUTPATIEN 9 9 [facility] 10 BANK ACCT MINUTES OFFICE 88058 [facility] OUTPATIEN 8 8 [facility] T VISIT [facility] [facility] OUT[facility]IEN [facility] T EMERGENCY [id number] [facility] DEPARTMEN INC T VISIT LIMITED/M INOR PROB OFFICE [id number] [facility] 8 [facility] T VISIT [facility] 10 BANK ACCT MINUTES OFFICE [id number] [facility]IEN 8 8 [facility] T VISIT [facility] 10 BANK ACCT MINUTES OFFICE [id number] [facility] OUT[facility]IEN 8 8 [facility] T [facility]ISIT [facility] 10 BANK ACCT MINUTES
--- OUTSIDE RECORDS SUMMARY | 2017-06-12 20:51 | External Medical Summary Rpt | CCD ---
Author Author , MARY Organization MARY Address Unknown Phone [email or web address] Care Team Providers Care Dice Table Person Name Role Phone BEINEKE, BEINEKE Unavailable Unavailable BEINEKE ERNA, BEINEKE Unavailable Unavailable ERNA BESSON BRIDGER, BESSON Unavailable Unavailable BRIDGER [facility] Unavailable Unavailable SERVICE, [facility] Unavailable Unavailable SERVICE, [facility], [facility] Unavailable Unavailable BROWN, BROWN Unavailable [...] VIN JAMA VIN, JAMA Unavailable Unavailable [facility] Unavailable Unavailable [place], [facility] Unavailable Unavailable [place], [facility] Unavailable Unavailable INC, [facility] Unavailable [facility]available [facility] Unavailable [facility]available HOSPITAL P, [facility], Unavailable Unavailable [facility], Unavailable Unavailable [facility] Unavailable [facility], [facility] VIRI LIZANDRO Unavailable [...] OSIRIS T, Unavailable Unavailable MULBERRY, OSIRIS T [facility] Un[facility] DEPT, [facility] MARCOS R H, Unavailable Unavailable MARCOS R H MARCOS R H, Unavailable Unavailable MARCOS R H MARCOSDorinda, Unavailable Unavailable MARCOS R LISETH CHRISTIANSON JAM, CHRISTIANSON Unavailable Unavailable JAM [facility], [facility] Unavailable Unavailable [facility] Un[facility] Unavailable PLL[facility], [facility] Unavailable Unavailable LAB, [facility] Unavailable Unavailable LAB, [facility] PICKBRITNEY MCKAY, Unavailable Unavailable PICKBRITNEY YOON TOYessenia, KARRIE TOYessenia Unavailable Unavailable [id number], Unavailable Unavailable [id number] Unavailable Unavailable [id number] # [id number], [facility] [id number] # [id number] MELANIE WISE, Unavailable Unavailable MELANIE WISE, TRACEY Unavailable Unavailable ADRIANA SOTINGEANU, Unavailable Unavailable SOTINGEANU SOTINGEANU ERNA, Unavailable Unavailable SOTINGEANU [facility] ADALBERTO AYALA, ADALBERTO Unavailable Unavailable AYALA [facility] Unavailable Unavailable #591, [facility] # Unavailable Unavailable [id number], [facility] # [id number] JOSH RAMIREZ AMITA, Unavailable Unavailable JOSH LEVI, Unavailable Unavailable JOSH MORENO III, OMAIRA, Unavailable Unavailable OMAIAR MORENO III, MARIA ELENA GARCÍA Unavailable Unavailable OMAIRA MORENO, Unavailable Unavailable OMAIRA MORENO [facility] Unavailable Unavailable OF [place], [facility] Purpose Continuity of Care Document - 11-01-2007 through 2016 Problems Code Diagnosis DOS Provider Status R5383 OTHER 04-06-2017 [facility] [id number] UNSPECIFIED 10-14-2016 [place] [facility] CYST LEFT IMAGING ASS SIDE N926 IRREGULAR 10-14-2016 [place] MENSTRUATIO MEDICAL N IMAGING ASS UNSPECIFIED N938 OTHER SPEC 10-14-2016 [place] ABNORMAL MEDICAL UTERINE & IMAGING ASS VAGINAL BLEEDING N920 EXCESS & 09-24-2016 [facility] F[facility]QUENT PHYSIC[facility]ANS MENSTRUATIO GROUP N W/REGULAR CYCLE R5382 CHRONIC 09-24-2016 [facility] UNSPECIFIED INC R635 ABNORMAL 09-24-2016 [facility] WEIGHT GAIN [facility] A084 VIRAL 08-31-2016 [facility] INTESTINAL [facility] INFECTION INC UNSPECIFIED K529 NONINFECTIV 08-31-2016 [facility] GASTROENTER [facility] ITIS & COLITIS UNS O69028 PERSONAL 08-31-2016 [facility] HISTORY OF [facility] NICOTINE INC DEPENDENCE H6983 OTHER SPEC 07-22-2016 [facility] DISORDERS PHYSICIANS EUSTACHIAN GROUP TUBE BILAT A38399 CELLULITIS 07-22-2016 [facility] OF HEAD ANY PHYSICIANS PART GROUP EXCEPT [...] ASSOCIATES CHOLECYST W/O OBSTRUCTION K810 ACUTE 03-05-2016 [facility] CHOLECYSTIT PHYSICIANS IS GROUP R1013 EPIGASTRIC 03-05-2016 [facility] PAIN PHYSICIANS GROUP R112 NAUSEA WITH 03-05-2016 [facility] VOMITING PHYSICIANS UNSPECIFIED GROUP K8020 CALCULUS GB 03-04-2016 [facility] W/O PHYSICIANS, CHOLECYSTIT PLLC IS W/O OBSTRUCTION K828 OTHER 03-04-2016 [place] SPECIFIED MEDICAL DISEASES OF IMAGING ASS GALLBLADDER R1110 VOMITING 03-04-2016 [place] UNSPECIFIED [facility]ICAL IMAGING ASS R079 CHEST PAIN 02-20-2016 [place] UNSPECIFIED [facility]ICAL IMAGING ASS R1031 RIGHT LOWER 02-19-2016 [place] [facility] IM[facility]ING ASS E039 HYPOTHYROID 01-04-2016 [facility] ISM PHYSICIANS UNSPECIFIED LA I10 ESSENTIAL 01-04-2016 [facility] PRIMARY PHYSICIANS HYPERTENSIO LA N D2271 MELANOCYTIC 10-30-2015 [facility] NEVI RIGHT LLC LOWER LIMB INCLUDING HIP D2370 OTHER 10-30-2015 [facility] BENIGN PHYSICIANS NEOPLASM GROUP SKIN UNS LOW LIMB INCL HIP R52 PAIN 10-30-2015 [facility] UNSPECIFIED PHYSICIANS GROUP B03904 ENCOUNTER 10-02-2015 [facility], 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 LLC GENERAL RTN W/O ABNORMAL FIND Z113 ENCOUNTER 10-02-2015 [facility], SCREEN LLC INFECTIONS SEXL MODE TRANSMISSN W07677 PAIN IN 08-25-2015 [facility] M791 MYALGIA 08-25-2015 [facility] K649 UNSPECIFIED 07-20-2015 [facility] HEMORRHOIDS K644 RESIDUAL 07-14-2015 [facility]HOIDA [facility] SKIN TAGS INC N925 OTHER 07-02-2015 [facility] SPECIFIED PHYSICIANS IRREGULAR GROUP MENSTRUATIO N M9900 SEGMENTAL 06-19-2015 [facility] DYSFUNCTION OF HEAD REGION M9902 SEGMENTAL & 06-19-2015 [place] [facility] DYSFUNCTION C CENTE THORACIC REGION M9903 SEGMENTAL & 06-19-2015 [facility] [facility] DYSFUNCTION C CENTE OF LUMBAR REGION 2768 HYPOPOTASSE 03-07-2015 [facility] P 00003 ABDOMINAL 03-07-2015 [facility] PAIN, PHYSICIANS, EPIGASTRIC PLLC V1582 PERS HX 03-07-[address] [facility] P [facility] 95846 ACUT 02-27-2015 [facility] SUPPRATV [facility] MEDIA W/O SPONT RUP EARDRUM 58492 NAUSEA WITH 12-30-2014 [place] [facility] 75861 DIARRHEA 12-30-2014 [facility] 5589 OTH&UNSPEC 12-29-2014 MC[facility] NONINFECTIO [facility] P GASTROENTER ITIS&COLITI S 90475 VOMITING 11-08-2014 [facility] P 4789 OTHER&UNSPE 09-01-2014 [facility] DISEASES [facility] RESPIRATORY TRACT 6160 CERVICITIS 07-07-2014 [facility] AND LLC ENDOCERVICI TIS V221 SUPERVISION 07-07-2014 [facility], OF OTHER LLC NORMAL V7242 07-07-2014 [facility] EXAMINATION PHYSICIANS OR TEST GROUP POSITIVE RESULT V745 SCREENING 07-07-2014 [facility], EXAMINATION LLC FOR VENEREAL DISEASE 98413 BN&JNT D/O 06-22-2014 [facility] N EMERGENCY PELVIS&LW PHYS LIMBS ANTEPARTUM 7242 LUMBAGO 06-22-2014 [facility] EMERGENCY PHYS 7871 HEARTBURN 05-18-2014 [facility] HOSP INC 48595 ABDOMINAL 05-18-2014 MC[facility] PAIN RIGHT [facility] UPPER INC QUADRANT V5869 LONG-TERM 03-08-2014 [facility]BIN[facility] (CURRENT) PHYSICIANS USE OF [place] OTHER MEDICATIONS 5368 DYSPEPSIA&O 02-01-2014 ANUP Arroyo THER SPEC DISORDERS FUNCTION STOMACH 6269 UNS D/O 02-01-2014 ANUP Arroyo MENSTRUATIO N&OTH ABN BLEED FE GNT TRACT 11375 UNSPECIFIED 11-25-2013 [facility] OTALGIA [facility] INC 7873 FLATULENCE 11-25-2013 MARIA ELENA RICKY ERUCTATION AND GAS PAIN 68081 ABDOMINAL/P 11-25-2013 MC[facility] ELVIC [facility] SWELLING INC MASS/LUMP UNSPEC SITE 6264 IRREGULAR 11-23-2013 [place] [address] NAUSEA 10-28-2013 WEHRMAN III ALONE AMITA 466.0 466.0 ACUTE 2013 [place] BRONCHITIS [facility] 4660 ACUTE 2013 MCINT[facility] BRONCHITIS [facility] INC 535.00 535.00 2013 [facility] W/O MENTION OF HEMORRHAGE 95169 ACUTE 2013 [facility] GASTRITIS [facility] WITHOUT INC MENTION OF HEMORRHAGE 32017 UNS 2013 MELANIE LEIGHANN GASTRITIS&G ASTRODUODIT IS W/O MENTION HEMORR 6201 CORPUS 07-04-2013 BR[facility] MARIZA LUTEUM CYST OR HEMATOMA 6259 UNSPEC 07-04-2013 STEPHANIE DAWKINS [facility] W/FEMALE GENITAL ORGANS 54340 ABDOMINAL 05-19-2013 [facility]OM[facility]'S PAIN, LEFT [facility] [place] 6253 DYSMENORRHE 04-12-2013 BROWN MARIZA A 6260 ABSENCE OF 04-12-2013 [facility] MENSTRUATIO [facility] N INC 599.0 599.0 URIN 12-23-2012 Bhavik TRACT [facility] INFECTION Hospital NOS 5990 URINARY 12-23-2012 BH[facility] TRACT [facility] INFECTION INC SITE NOT SPECIFIED 787.03 787.03 12-23-2012 Bhavik VOMITING [facility] Hospital 486 486 10-20-2012 Bhavik PNEUMONIA, [facility] ORGANISM Hospital NOS 780.60 780.60 10-20-2012 [place] FEVER, [facility] UNSPECIFIED Hospital 82871 FEVER 10-20-2012 WEHRMAN III UNSPECIFIED AMITA 7862 COUGH 10-20-2012 JOSE ENRIQUE MILLA 789.00 789.00 10-20-2012 [place] ABDOMINAL [facility] UNSPECIFIED SITE 65683 ABDOMINAL 10-20-2012 WEHRMAN III PAIN, AMITA UNSPECIFIED SITE 0091 COLITIS 08-27-2012 [facility] TROENTERIT INF ORIGIN 6262 EXCESSIVE 08-27-2012 [facility] OR FREQUENT ASSOCIATES MENSTRUATIO N 58593 INSOMNIA 08-27-2012 [facility] UNSPECIFIED ASSOCIATES V016 CONTACT 07-15-2012 BH[facility]IK KERNS WITH OR HEALTH EXPOSURE TO CENTER VENEREAL DISEASES 90270 MASTODYNIA 06-24-2012 [facility] 48351 ABDOMINAL 06-24-2012 [facility] PAIN, [facility] GENERALIZED INC V2541 SURVEILLANC 06-07-2012 BH[facility] CO E PREV HEALTH PRESCRIBED CENTER CONTRACEPT PILL 3819 UNSPECIFIED 06-02-2012 ANUP Arroyo EUSTACHIAN TUBE DISORDER 08996 LOSS OF 06-02-2012 [facility] WEIGHT [facility] V7241 03-30-2012 [facility] CO EXAMINATION HEALTH OR TEST CENTER NEGATIVE RESULT 5758 OTHER 02-05-2012 [place] SPECIFIED MEDICAL DISORDER OF IMAGING ASS GALLBLADDER 27044 ABDOMINAL 02-03-2012 JAMA VIN PAIN OTHER SPECIFIED SITE 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 2662 OTHER 01-06-2012 [facility] KERNS B-COMPLEX HEALTH DEFICIENCIE CENTER S 6228 OTHER 01-06-2012 PATHOLOGY & SPECIFIED CYTOLOGY NONINFLAMMA LAB TORY DISORDER CERVIX V1589 OT SPEC 01-06-2012 PATHOLOGY & PERS HX CYTOLOGY PRESENTING LAB [facility] OTH V2509 OT GENERAL 01-06-2012 [facility] CNSL&ADVICE C[facility] CONTRACEPT MANAGEMENT V2549 SURVEILLANC 10-29-2011 [facility] OT PREV [facility] PRSC CENTER CONTRACEPT METHOD 460 ACUTE 09-18-2011 [facility] NASOPHARYNG ASSOCIATES ITIS 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 VULVOVAGINI TIS V7231 ROUTINE 12-24-2010 PATHOLOGY & GYNECOLOGIC CYTOLOGY AL LAB EXAMINATION 7231 CERVICALGIA 06-28-2010 [facility] 36158 NONSPEC 06-28-2010 [facility] PAP [facility] UNSATISFACT ORY CYTOLOGY 97264 PAP SMER 06-07-2010 [facility] W/ATYPICAL CENTER SQUAMOUS CELLS UNDET 8830 OPEN WOUND 10-20-2009 [facility] WITHOUT SERVICES MENTION ASSOCIATES COMPLICATIO N V065 NEED 10-20-2009 [facility] PROPHYLACTI [facility] C INC VACCINATION W/TETANUS-D [facility] 24051 UNSPECIFIED 08-21-2009 DUGLAS ELIAS OBSTRUCTION OF EUSTACHIAN TUBE 4779 ALLERGIC 08-21-2009 LILLIANA ELIAS CAUSE UNSPECIFIED 63957 DYSFUNCTION 08-16-2009 CHARISMA ELIAS EUSTACHIAN TUBE 73175 UNSPECIFIED 08-16-2009 DUGLAS ELIAS SENSORINEUR AL HEARING LOSS 84893 ABDOMINAL 08-08-2009 [facility] PAIN, ASSOCIATES PERIUMBILIC 67667 MIGRAINE 04-21-2009 [facility] UNSP W/O [facility] INTRACT W/O INC STATUS MIGRAINOSUS 4619 ACUTE 04-21-2009 [facility] SINUSITIS, [facility] UNSPECIFIED INC 7840 HEADACHE 04-21-2009 [facility] 06066 REGULAR 03-09-2009 SALTY ASTIGMATISM VISION 42127 UNSPECIFIED 12-28-2008 [facility]ERG[facility] INFECTION SERVICES IN CCE & [...] ve TA 11 20 20 19 AI CO 21 17 17 49 D N 0 [...] DO 53 05 05 0 14 7 WI 71 DAVID Ac XY 48 -1 -1 [...] ME 00 05 05 0 70 30 WI 71 DAVID Ac TR 78 -1 -1 [...] CA PS 10 UL 05 E 91 IN 68 10 11 00 10 2 WA [...] 00 10 5 RI 80 DAVID Ac CO 00 -1 -2 .0 TE 39 MM [...] CY CA #5 PS 91 UL E IN 68 10 10 00 10 2 RI [...] 20 RT 1 IN 20 09 09 CO 1 PH CH 50 AR AE 0 MA L MG CY S CA #5 PS 91 UL E 00 08 10 00 8. 2 WA 44 GA Ac 40 -2 -0 00 L- 80 IN ti 60 2- 8- 0 MA 01 EY ve 35 20 20 RT 6 70 09 09 CO 5 PH CH AR AE MA L [...] ON 20 7- 3- 0 MA 71 CO ve AZ 10 20 20 RT 3 [...] 15:00) COLLECT D.BRADF complet OR 012 ORD hedis specialist 15:00 ETHNICI WHITE complet TY 012 ed [...] Procedure DOS Code Location Performer Comment BLOOD 89646 [facility] COUNT 7 [facility] COMPLETE INC INC AUTO&AUTO DIFRNTL WBC COMPREHEN 20040 [facility]UT[facility] SIVE 7 [facility] [address] [facility] GUTIERR[facility] FOLIC 7 [facility] [place] [address] [facility] GUTIERRES FREE 7 [facility] [place] [address] [facility] G[facility] THYROID 7 [facility] STIMULATI INC INC NG HORMONE TSH CYANOCOBA 22947 [facility] GUTIERRES KELSEY 7 [facility] VITAMIN INC INC B-12 33817 BH[facility] GUTIERRES TRANSVAGI 7 [facility] NAL INC INC URINE 38040 [facility] 7 PHYSICIAN TEST S GROUP [place] [address] BH[facility] GUTIERRES THYROXINE 7 [facility] TOTAL INC INC THYROID 78355 [facility] GUTIERRES HORM 7 [facility] UPTK/THYR INC INC OID HORMONE BINDING RATIO BLOOD 64031 [facility] GUTIERR[facility] COUNT 7 [facility] COMPLETE INC INC AUTO&AUTO DIFRNTL WBC URNLS DIP 23745 [facility] 7 PHYSICIAN STICK/TAB S GROUP LET RGNT NON-AUTO W/O MICRSCP COLLECTIO 85146 [facility] GUTIERRES N VENOUS 7 MEM [facility] [place] [address] [facility] GUTIERRES THYROID 7 [facility]OS[facility] STIMULATI INC INC NG HORMONE TSH URINE 07529 [facility] GUTIERRES 7 [facility] TEST INC [place] [address] BH[facility] GUTIERRES THYROXINE 7 [facility] TOTAL INC INC COLLECTIO 13520 [facility] GUTIERRES N VENOUS 7 [facility] BLOOD INC INC VENIPUNCT URE COMPREHEN 64370 BH[facility] GUTIERRES SIVE 7 [facility] [place] [address] [facility] GUTIERRES THYROID 7 [facility] STIMULATI INC INC NG HORMONE TSH URNLS DIP 89439 [facility] GUTIERRES 7 [facility] STICK/TAB INC INC LET REAGENT AUTO MICROSCOP Y THYROID 21578 [facility] GUTIERRES HORM 7 [facility] UPTK/THYR INC INC OID HORMONE BINDING RATIO GONADOTRO 93687 [facility] GUTIERR[facility] PIN 7 [facility]OS[facility] CHORIONIC INC INC QUALITATI VE BLOOD 50378 [facility] GUTIERRES COUNT 7 [facility] COMPLETE INC INC AUTO&AUTO DIFRNTL WBC BLOOD 17820 [facility] GUTIERRES COUNT 6 [facility] COMPLETE INC INC AUTO&AUTO DIFRNTL WBC HOSPITAL G0378 [facility] NORIEGAON OBSERVATI 6 [facility] ON INC INC SERVICE PER HOUR COMPREHEN 91120 [facility] NORIEGAON SIVE 6 [facility]OS[facility] METABOLIC INC INC PANEL OBSERVATI 02157 FAMILY HEBERT ON CARE 6 CARE [place] DISCHARGE ASSOCIATE S MANAGEMEN T COLLECTIO 71967 BHAVIK BHAVIK N VENOUS 6 [facility] HOS[facility]OS[facility] BLOOD INC INC VENIPUNCT URE COLLECTIO 06634 [facility] GUTIERRES N VENOUS 6 MEM HOS[facility]OS[facility] BLOOD INC INC VENIPUNCT URE BASIC 51874 [facility] GUTIERRES METABOLIC 6 [facility] PANEL INC INC CALCIUM TOTAL SBSQ 66535 FAMILY HEBERT OBSERVATI 6 CARE [place]AY ON ASSOCIATE CARE/DAY S 15 MINUTES HOSPITAL G0378 BH[facility]IK NORIEGAON OBSERVATI 6 [facility] ON INC INC SERVICE PER HOUR LAPAROSCO 64801 [facility] GUTIERRES PY SURG 6 [facility] CHOLECYST INC INC ECTOMY BLOOD 51406 [facility] GUTIERR[facility] COUNT 6 [facility] COMPLETE INC INC AUTO&AUTO DIFRNTL WBC ANES 63129 [facility]UNITY ADALBERTO INTRAPERI 6 ANESTH AYALA TONEAL OF THE UPPER BLUE ABDOMEN W/LAPS NOS LEVEL III 79418 [facility], PICKLESIM SURG 6 [facility] PATHOLOGY GROSS&[place] [address] BH[facility] GUTIERRES ABDOMINAL 6 [facility] REAL INC INC TIME W/IMAGE LIMITED HOSPITAL G0378 [facility]KI GUTIERRES OBSERVATI 6 [facility] ON INC INC SERVICE PER HOUR INITIAL 61122 FAMILY HEBERT OBSERVATI 6 CARE [place] ON ASSOCIATE CARE/DAY S 50 [place] [address] BH[facility] GUTIERRES INFUSION 6 [facility] THERAPY/P INC INC ROPHYLAXI S /DX 1ST TO 1 HR ECG 58316 BH[facility] DEL RIO ROUTINE 6 [facility] W/LEAST P 12 LDS I&R ONLY URINE 39534 [facility] GUTIERRES 6 [facility] TEST INC INC VISUAL COLOR CMPRSN METHS COMPREHEN 98345 [facility] GUTIERRES SIVE 6 [facility] [place] [address] BHAVIK GUTIERRES AMYLASE 6 MEM HOS[facility]OS[facility] INC INC CREATINE 53831 BHAVIK GUTIERRES KINASE MB 6 MEM HOS[facility] FRACTION INC INC ONLY CREATINE 67803 [facility] GUTIERRES KINASE 6 [facility] [place] [place] [address] [facility] GUTIERRES LIPASE 6 [place] [address] [facility] GUTIERRES ABDOMEN & 6 [facility] PELVIS INC INC W/O CONTRAST MATERIAL ECG 60813 [facility] GUTIERRES ROUTINE 6 [facility] ECG INC INC W/LEAST 12 LDS TRCG ONLY W/O I&R URNLS DIP 39888 [facility] GUTIERRES 6 [facility] STICK/TAB INC INC [place] [address] [facility] GUTIERRES TROPONIN 6 MEM HOS[facility] MEM HOS[facility] QUANTITAT INC INC BRAYDEN BLOOD 65787 [facility] GUTIERRES COUNT 6 [facility]OS[facility] COMPLETE INC INC AUTO&AUTO DIFRNTL WBC RADIOLOGI 30220 [facility] C EXAM 6 MEDICAL CHEST 2 IMAGING VIEWS ASS FRONTAL&[place] [address] [facility] ABDOMEN & 6 MEDICAL PELVIS IMAGING W/O ASS CONTRAST MATERIAL ECG 28599 BHAVIK CAMP JR ROUTINE 6 [facility] W/LEAST P 12 LDS I&R ONLY IADNA 37712 MEDICAL MEDICAL TRICHOMON 6 DIAGNOSTI DIAGNOSTI C LAB LLC C LAB LLC VAGINALIS AMPLIFIED PROBE TECH COMPREHEN 48547 COMBINED COMBINED SIVE 6 PHYSICIAN PHYSICIAN [place] [address] COMBINED COMBINED THYROID 6 PHYSICIAN PHYSICIAN STIMULATI S LA S LA NG HORMONE TSH IADNA 34854 MEDICAL MEDICAL NEISSERIA 6 DIAGNOSTI DIAGNOSTI C LAB LLC C LAB LLC GONORRHOE AE AMPLIFIED PROBE TQ CYTP C/V 96315 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 THIN 6 Y VIRI OF Y VIRI OF LYR LIZANDRO LIZANDRO PREPJ SCR H H MNL RESCR PHYS IADNA 90117 MEDICAL MEDICAL URIEL 6 DIAGNOSTI DIAGNOSTI SPECIES C LAB LLC C LAB LLC AMPLIFIED PROBE TQ GONADOTRO 42798 LAB VIRI LAB VIRI PIN 6 LIZANDRO LIZANDRO LUTEINIZI [facility]INGS HOLDINGS NG HORMONE HANDLG&/O 86205 FAMILY FAMILY R CONVEY 6 CARE CARE OF SPEC ASSOCIATE ASSOCIATE FOR TR S S OFFICE TO LAB IADNA 54251 MEDICAL MEDICAL CHLAMYDIA 6 DIAGNOSTI DIAGNOSTI C LAB LLC C LAB LLC TRACHOMAT IS AMPLIFIED PROBE TQ GONADOTRO 50336 LAB VIRI LAB VIRI PIN 6 LIZANDRO LIZANDRO FOLLICLE [facility] HOLDINGS STIMULATI NG HORMONE EXC B9 90170 [facility] LESION 6 PHYSICIAN MARIZA MRGN XCP S GROUP SK TG T/A/L 0.5 CM/< L[place] [address] [facility], BORGES SURG 6 LLC PATHOLOGY GROSS&LEIGHANN ROSCOPIC EXAM IADNA 20209 [facility], [facility] NEISSERIA 6 LLC GONORRHOE AE AMPLIFIED PROBE TQ CYTP 76532 [facility], [facility] CERVICAL/ 6 [facility] VAGINAL REQ INTERP PHYSICIAN CYTP C/V 60894 [facility], [facility] AUTO THIN 6 LLC LYR PREPJ SCR MNL RESCR PHYS IADNA 74720 [facility], [facility] CHLAMYDIA 6 LLC TRACHOMAT IS AMPLIFIED PROBE TQ AMBULANCE A0429 [facility] SERVICE 5 AMBULANCE AMBULANCE BLS SERVICE SERVICE EMERGENCY TRANSPORT GROUND A0425 [facility] MILEAGE 5 AMBULANCE AMBULANCE PER SERVICE SERVICE STATUTE MILE COMPREHEN 06654 [facility]UTIERRES SIVE 5 [facility] METABOLIC INC INC PANEL URINE 34702 [facility] GUTIERRES 5 [facility] TEST INC INC VISUAL COLOR CMPRSN METHS URNLS DIP 07745 [facility] GUTIERRES 5 [facility] STICK/TAB INC INC LET REAGENT AUTO MICROSCOP Y BLOOD 83893 [facility] GUTIERRES OCCULT 5 [facility]OS[facility] PEROXIDAS INC INC E ACTV QUAL FECES 1-3 SPEC BLOOD 95500 [facility] GUTIERRES COUNT 5 [facility] COMPLETE INC INC AUTO&AUTO DIFRNTL WBC URINE 77531 [facility] 5 PHYSICIAN MARIZA TEST S GROUP VISUAL COLOR CMPRSN METHS THERAPEUT 96261 [facility] IC PX 1/> 5 GAR AREAS CHIROPRAC EACH 15 TIC CENTE MIN EXERCISES CHIROPRAC 57477 [facility] TIC 5 GAR MANIPULAT CHIROPRAC [place] TIC CENTE SPINAL 1-2 REGIONS APPL 61124 [facility] MODALITY 5 GAR 1/> AREAS CHIROPRAC TRACTION TIC CENTE MECHANICA L CREATINE 31793 [facility] GUTIERRES KINASE MB 5 [facility] FRACTION INC INC ONLY COMPREHEN 23745 [facility] G[facility] SIVE 5 [facility] METABOLIC INC INC PANEL ECG 11349 [facility] DEL RIO ROUTINE 5 [facility] W/LEAST P 12 LDS I&R ONLY BLOOD 07054 [facility] COUNT 5 [facility] COMPLETE INC INC AUTO&AUTO DIFRNTL WBC THERAPEUT 02740 [facility] G[facility] IC 5 [facility] INJECTION [place] [address] [facility] INFUSION 5 [facility] THERAPY/P INC INC ROPHYLAXI S /DX 1ST TO 1 HR URNLS DIP 68668 [facility] STICK/TAB INC INC [place] [address] [facility] GUTIERR[facility] TROPONIN 5 [facility] QUANTITAT INC INC BRAYDEN CREATINE 09260 [facility] G[facility] KINASE 5 [facility] TOTAL INC INC ECG 56923 [facility]ERR[facility] ROUTINE 5 [facility] ECG INC INC W/LEAST 12 LDS TRCG ONLY W/O I&R URINE 15328 [facility]IERRES [facility] TEST INC [place] [address] [facility]UTIERR[facility] INFUSION [facility] THERAPY/P INC INC ROPHYLAXI S /DX 1ST TO 1 [place] [address] [facility]IERR[facility] INFUSION 5 [facility] THERAPY INC [place] [address] [facility] ABDOMEN & 5 MEDICAL ERNA PELVIS IMAGING W/O ASS CONTRAST MATERIAL URINE 62963 [facility] TEST INC INC [place] [address] [facility] GUTIERR[facility] LIPASE 5 [facility] INC INC BLOOD 13759 [facility] COUNT 5 [facility] COMPLETE INC INC AUTO&AUTO DIFRNTL WBC URNLS DIP 24221 [facility]ES [facility] STICK/TAB INC INC [place] [address] [facility] G[facility]IERRES AMYLASE 5 [facility] INC INC COMPREHEN 18844 [facility]ERR[facility] SIVE 5 [facility] METABOLIC INC INC PANEL GLUC BLD 82235 [facility] GUTIERRES GLUC MNTR 5 [facility] DEV INC INC CLEARED FDA SPEC HOME USE URNLS DIP 11996 [facility]ERRES 5 [facility] STICK/TAB INC INC LET REAGENT AUTO MICROSCOP Y IAADI 67731 [facility] G[facility]IERR[facility] INFLUENZA 5 [facility] B VIRUS INC INC IAADI 29287 [facility] G[facility] INFFLUENZ 5 [facility] A A VIRUS INC INC URINE 15601 [facility] G[facility]ES [facility] TEST INC INC VISUAL COLOR CMPRSN METHS IADNA 00188 [facility] NELY GONORRHOE AE AMPLIFIED PROBE TQ CYTP C/V 19600 [facility] NELY LYR PREPJ SCR MNL RESCR PHYS URINE 95170 [facility] 4 PHYSICIAN MARIZA TEST S GROUP VISUAL COLOR CMPRSN METHS IADNA 47418 [facility] JR NELY TRACHOMAT IS AMPLIFIED PROBE TQ DRUG SCR [id number] COMBINED COMBINED NOT 4 PHYSICIAN PHYSICIAN CHROMATOG S LA S LA RAPHIC; ANY NUMBER PT ENC DRUG SCRN 65599 COMBINED COMBINED QUAL PILE DRIVER OPERATOR 4 PHYSICIAN PHYSICIAN CLASS S LA S LA NONCHROMO TOGRAPHIC EACH URINE 23669 ANUP J ANUP J 4 G G TEST VISUAL COLOR CMPRSN METHS URINE 28703 ANUP HEBERT J 4 G G TEST VISUAL COLOR CMPRSN METHS COMPREHEN 42531 COMBINED COMBINED SIVE 4 PHYSICIAN PHYSICIAN [place] [address] MARCOS MARCOS THYROID 4 R H R H STIMULATI NG HORMONE TSH URINE 54927 MARCOS MARCOS 4 R H R H TEST VISUAL COLOR CMPRSN METHS BLOOD 20204 MARCOS MARCOS COUNT 4 R H R H COMPLETE AUTO&AUTO DIFRNTL WBC URINE 11854 [facility] GUTIERRES 3 [facility] TEST INC [place] [address] BHAVIK GUTIERRES LIPASE 3 [facility] INC INC THERAPEUT 88247 BHAVIK GUTIERRES IC 3 [facility] INJECTION INC INC IV PUSH EACH NEW DRUG BLOOD 34987 BHAVIK GUTIERRES COUNT 3 [facility] COMPLETE INC INC AUTO&AUTO DIFRNTL WBC URNLS DIP 26470 BHAVIK NORIEGAON 3 [facility] STICK/TAB INC [place] [address] BHAVIK GUTIERRES INFUSION 3 [facility] THERAPY/P INC INC ROPHYLAXI S /DX 1ST [place] [address] BHAVIK GUTIERRES AMYLASE 3 [facility] INC INC COMPREHEN 28621 BHAVIK GUTIERRES SIVE 3 [facility] [place] [address] STEPHANIE BROWN TRANSVAGI 3 MARIZA MARIZA NAL URINE 71521 STEPHANIE BROWN 3 MARIZA MARIZ[place] V[place] [address] [facility] STEPH[facility] TRANSVAGI 3 [facility] [place] [address] STEPHANIE BROWN TRANSVAGI 3 MARIZA MARIZA NAL GONADOTRO 28200 BHAVIK GUTIERRES PIN 3 [facility] CHORIONIC INC INC QUALITATI VE URINE 21775 BROWN BROWN 3 MARIZA MARIZA TEST VISUAL COLOR CMPRSN METHS URINE 21860 ANUP Whitmore 3 G G TEST VISUAL COLOR CMPRSN METHS BLOOD 86286 ANUP Whitmore COUNT 3 G G COMPLETE AUTO&AUTO DIFRNTL WBC CULTURE 97407 BHAVIK GUTIERRES BCT 3 [facility] ISOL&PRSM INC INC PTV ID ISOLATE EA URINE CULTURE 71203 BHAVIK GUTIERRES BACTERIAL 3 [facility] INC INC QUANTTATI VE COLONY COUNT URINE URINE 02626 BHAVIK GUTIERRES 3 [facility] TEST INC INC VISUAL COLOR CMPRSN METHS SUSCEPTIB 55237 BHAVIK GUTIERRES LTY STDY 3 [facility] ANTIMICRB INC INC IAL MICRO/AGA R DILUTJ URNLS DIP 58825 BHAVIK GUTIERRES 3 [facility] STICK/TAB INC INC LET REAGENT AUTO MICROSCOP Y URINE 37274 ANUP Whitmore 3 G G TEST VISUAL COLOR CMPRSN METHS IAADI 61241 BHAVIK GUTIERRES INFFLUENZ 3 [facility] A A VIRUS INC INC IAADI 49079 BHAVIK GUTIERRES INFLUENZA 3 [facility] [place] [address] BHAVIK GUTIERRES LIPASE 3 [facility] INC INC THERAPEUT 07087 BHAVIK GUTIERRES IC 3 [facility] INJECTION INC INC IV PUSH EACH NEW DRUG RADIOLOGI 16233 BHAVIK GUTIERRES C EXAM 3 [facility] CHEST 2 INC INC VIEWS FRONTAL&L ATERAL CULTURE 07804 BHAVIK GUTIERRES BACTERIAL 3 [facility] BLOOD INC INC AEROBIC W/ID ISOLATES BLOOD 68169 BHAVIK GUTIERRES COUNT 3 [facility] COMPLETE INC INC AUTO&AUTO DIFRNTL WBC URNLS DIP 88026 BHAVIK GUTIERRES 3 [facility] STICK/TAB INC [place] [address] BHAVIK GUTIERRES INFUSION 3 [facility] THERAPY/P INC INC ROPHYLAXI S /DX 1ST TO 1 HR CULTURE 73680 BHAVIK GUTIERRES BACTERIAL 3 [facility] INC INC QUANTTATI VE COLONY COUNT URINE URINE 94970 BHAVIK GUTIERRES 3 [facility] TEST INC [place] [address] BHAVIK GUTIERRES AMYLASE 3 [facility] INC INC COMPREHEN 69370 BHAVIK GUTIERRES SIVE 3 [facility] METABOLIC INC INC PANEL INJECTION J2405 BHAVIK GUTIERRES 3 [facility] ONDANSETR INC INC ON HCL PER 1 [place] [address] BHAVIK GUTIERRES INFUSION 3 [facility] THERAPY/P INC INC ROPHYLAXI S /DX 1ST TO 1 HR THERAPEUT 56125 BHAVIK GUTIERRES IC 3 [facility] INJECTION INC INC IV PUSH EACH NEW DRUG BLOOD 03025 BHAVIK GUTIERRES COUNT 3 [facility] COMPLETE INC INC AUTO&AUTO DIFRNTL WBC URNLS DIP 48125 BHAVIK GUTIERRES 3 [facility] STICK/TAB INC INC [place] [address] BHAVIK GUTIERRES AMYLASE 3 [facility] INC INC COMPREHEN 18253 BHAVIK GUTIERRES SIVE 3 [facility] METABOLIC INC INC PANEL INJECTION J2405 BHAVIK GUTIERRES 3 [facility] ONDANSETR INC INC ON HCL PER 1 MG 3D 44592 BHAVIK GUTIERRES RENDERING 3 [facility] INC INC W/INTERP& POSTPROC DIFF WORK STATION URINE 87779 BHAVIK GUTIERRES 3 [facility] TEST INC INC VISUAL COLOR CMPRSN METHS IAADI 11664 BHAVIK GUTIERRES INFFLUENZ 3 [facility] A A VIRUS INC INC IAADI 47493 BHAVIK GUTIERRES INFLUENZA 3 [facility] [place] [address] BHAVIK GUTIERRES LIPASE 3 [place] [address] JOSE ENRIQUE JOSE ENRIQUE ABDOMEN & 3 MILLA MILLA PELVIS W/O CONTRAST MATERIAL BLOOD 54075 FAMILY FAMILY COUNT 2 CARE CARE COMPLETE ASSOCIATE ASSOCIATE AUTO&AUTO S S DIFRNTL WBC GONADOTRO 08824 BHAVIK GUTIERRES PIN 2 [facility] CHORIONIC INC INC QUALITATI VE URINE 02819 FAMILY CHRISTIANSON 2 CARE JAM TEST ASSOCIATE VISUAL S COLOR CMPRSN METHS URNLS DIP 64048 FAMILY FAMILY 2 CARE CARE STICK/TAB ASSOCIATE ASSOCIATE LET RGNT S S NON-AUTO W/O MICRSCP CULTURE 64305 COMBINED COMBINED BACTERIAL 2 PHYSICIAN PHYSICIAN S LA S LA QUANTTATI VE COLONY COUNT URINE ANTIBODY 67044 BHAVIK GUTIERRES HELICOBAC 2 [facility] TER INC INC PYLORI GENERAL 48494 BHAVIK GUTIERRES HEALTH 2 [facility] [place] [address] BHAVIK GUTIERRES THYROID 2 [facility] STIMULATI [place] [address] BHAVIK GUTIERRES THYROXINE 2 [facility] TOTAL INC INC THYROID 46876 BHAVIK GUTIERRES HORM 2 [facility] UPTK/THYR INC INC OID HORMONE BINDING RATIO BLOOD 18103 ANUP Whitmore COUNT 2 G G COMPLETE AUTO&AUTO DIFRNTL WBC CONTRACEP S4993 BHAVIK THAO 2 [facility] CONTROL CONTRACEP A4267 BHAVIK THAO 2 [facility] CONDOM MALE EACH URINE 47750 BHAVIK GUTIERRES 2 [facility] [facility] [place] [address] [place] JOSE ENRIQUE ABDOMINAL 2 MEDICAL MILLA REAL IMAGING TIME ASS W/IMAGE LIMITED BLOOD 22432 BHAVIK GUTIERRES COUNT 2 [facility] COMPLETE INC INC AUTO&[place] [address] BHAVIK GUTIERRES TROPONIN 2 [facility] QUANTITAT INC INC BRAYDEN URNLS DIP 29922 BHAVIK GUTIERRES 2 [facility] STICK/TAB INC INC LET REAGENT AUTO MICROSCOP Y ECG 08503 ZOË CAMP JR ROUTINE 2 DWI DWI ECG W/LEAST 12 LDS I&R ONLY URINE 66154 BHAVIK GUTIERRES 2 [facility] TEST INC INC VISUAL COLOR CMPRSN METHS ECG 21570 BHAVIK GUTIERRES ROUTINE 2 [facility] ECG INC INC W/LEAST 12 LDS TRCG ONLY W/O I&[place] [address] BHAVIK GUTIERRES LIPASE 2 [facility] INC INC CREATINE 96740 BHAVIK GUTIERRES KINASE 2 [facility] TOTAL INC INC CREATINE 56362 BHAVIK GUTIERRES KINASE MB 2 [facility] [place] [address] BHAVIK GUTIERRES AMYLASE 2 [facility] INC INC COMPREHEN 87141 BHAVIK GUTIERRES SIVE 2 [facility] METABOLIC INC INC PANEL CYTP 35151 PATHOLOGY BORGES CERV/VAG 2 & LANE AUTO THIN CYTOLOGY LAYER LAB PREP MNL SCREEN CYTP 58201 PATHOLOGY BORGES CERVICAL/ [address]ANE VAGINAL CYTOLOGY REQ LAB INTERP PHYSICIAN IADNA 18003 BHAVIK GUTIERRES CHLAMYDIA 2 [facility] DUKE TRACHOMAT IS AMPLIFIED PROBE TQ IADNA 10090 BHAVIK GUTIERRES NEISSERIA 2 [facility] GONORRHOE AE AMPLIFIED PROBE TQ INJ J1055 BHAVIK GUTIERRES MDRXYPRGE 2 [facility] ACTAT CNTRACPT USE 150 MG BLOOD 51731 FAMILY FAMILY COUNT 2 CARE CARE COMPLETE ASSOCIATE ASSOCIATE AUTO&AUTO S S DIFRNTL WBC INJ J1055 BHAVIK GUTIERRES MDRXYPRGE 1 [facility] CNTRAC[facility] USE 150 MG URINE 58897 BHAVIK GUTIERRES 1 [facility] VISUAL COLOR CMPRSN METHS INJ J1055 BHAVIK GUTIERRES MDRXYPRGE 1 [facility] ACTAT CNTRACPT USE 150 MG NONEMERGE A0100 [place] [facility] NCY 1 COMMUNITY TRANSPORT ACTION ATION; TAXI IADNA 51359 MEDICAL MEDICAL CHLAMYDIA 1 [facility] TRACHOMAT IS AMPLIFIED PROBE TQ IADNA 00932 MEDICAL MEDICAL NEISSERIA 1 [facility] GONORRHOE AE AMPLIFIED PROBE TQ IADNA NOS 49355 MEDICAL MEDICAL 1 DIAGNOSTI DIAGNOSTI AMPLIFIED [facility] PROBE TQ EACH ORGANISM BLOOD 61602 FAMILY FAMILY COUNT 1 CARE CARE COMPLETE ASSOCIATE ASSOCIATE AUTO&AUTO S S DIFRNTL WBC IADNA 41583 MEDICAL MEDICAL URIEL 1 [facility]NO[facility]I DIAGNOSTI SPECIES [facility] AMPLIFIED PROBE TQ IADNA 62160 MEDICAL MEDICAL GARDNEREL 1 DIAGNOSTI DIAGNOSTI LA [facility] VAGINALIS AMPLIFIED PROBE TQ URINE 22949 FAMILY MULBERRY 1 [facility] TEST ASSOCIATE VISUAL S COLOR CMPRSN METHS IADNA 37552 BHAVIKWHITNEY GUTIERRES NEISSERIA [address] [facility] GONORRHOE AE AMPLIFIED PROBE TQ CYTP 43743 PATHOLOGY PATHOLOGY CERV/VAG 1 & & AUTO THIN CYTOLOGY CYTOLOGY LAYER LAB LAB PREP MNL SCREEN IADNA 48958 BHAVIK GUTIERRES CHLAMYDIA 1 [facility] TRACHOMAT IS AMPLIFIED PROBE TQ INJ J1055 BHAVIK BHAVIK MDRXYPRGE 1 [facility] ACTAT CNTRACPT USE 150 MG CONTRACEP A4267 BHAVIK GUTIERRES TIVE 1 [facility] CONDOM MALE EACH INJ J1055 BAHVIK NORIEGAON MDRXYPRGE 1 [facility] ACTAT CNTRACPT USE 150 MG NONEMERGE A0100 [facility] NCY 1 COMMUNITY TRANSPORT ACTION ATION; TAXI INJ J1055 BHAVIK BHAVIK MDRXYPRGE 0 [facility] ACTAT CNTRACPT USE 150 MG CYTP 31851 PATHOLOGY PATHOLOGY CERV/VAG 0 & & AUTO THIN CYTOLOGY CYTOLOGY LAYER LAB LAB PREP MNL SCREEN INJ J1055 BHAVIKWHITNEY GUTIERRES MDRXYPRGE 0 [facility] CNTRACPT USE 150 MG INJ J1055 BHAVIK GUTIERRES MDRXYPRGE 0 [facility] ACTAT CNTRACPT USE 150 MG CYTP 67513 PATHOLOGY PATHOLOGY CERVICAL/ 0 & & VAGINAL CYTOLOGY CYTOLOGY REQ LAB LAB INTERP PHYSICIAN CONTRACEP A4267 BHAVIK GUTIERRES TIVE 0 [facility] SU[facility] CONDOM MALE EACH INJ J1055 BHAVIK GUTIERRES MDRXYPRGE 0 [facility] CNTRACPT USE 150 MG CYTP 54089 PATHOLOGY PATHOLOGY CERV/VAG 0 & & AUTO THIN CYTOLOGY CYTOLOGY LAYER LAB LAB PREP MNL SCREEN IADNA 90367 BHAVIK GUTIERRES CHLAMYDIA 0 [facility] TRACHOMAT IS AMPLIFIED PROBE TQ IADNA 22964 BHAVIK GUTIERRES NEISSERIA 0 [facility] GONORRHOE AE AMPLIFIED PROBE TQ CLOSURE 8659 BHAVIK GUTIERRES SKIN&SUBC 0 [facility] UTANEOUS INC INC TISSUE OTHER SITES SIMPLE 52331 HALIMA WEHRMAN REPAIR 0 EMERGENCY III, SCALP/NEC SERVICES OMAIRA K/AX/JULIANNE T/TRUNK ASSOCIATE 2.5CM/< S URNLS DIP 60904 BH[facility]IK GUTIERRES 0 [facility] STICK/TAB INC INC LET REAGENT AUTO MICROSCOP Y BLOOD 14845 BHAVIK GUTIERRES COUNT 0 [facility] COMPLETE INC INC AUTO&[place] [address] BHAVIK GUTIERRES LIPASE 0 [place] [address] BHAVIK GUTIERRES AMYLASE 0 [facility] INC INC COMPREHEN 90359 BHAVIK GUTIERRES SIVE 0 [facility] METABOLIC INC INC PANEL URINE 14231 BHAVIK GUTIERRES 0 [facility] TEST INC INC VISUAL COLOR CMPRSN METHS COMPRE 09997 JADA ELIAS, AUDIOMETR 9 DUGLAS Arroy[facility] Y THRESHOLD EVAL SP RECOGNIJ ACOUSTIC 16690 JADA ELIAS, REFLEX 9 [facility] [place] THRESHOLD TYMPANOME 77968 JADA ELIAS, TRY 9 DUGLAS [place]o INJ J1055 [facility] BHAVIK MDRXYPRGE 9 [facility] B[facility] ACCT CNTRACPT USE 150 MG BLOOD 07567 FAMILY NORRISBERRY, COUNT 9 CARE OSIRIS T COMPLETE ASSOCIATE AUTO&[place] [address] [facility] JOSE ENRIQUE, ABDOMINAL 9 MEDICAL GAMA REAL IMAGING TIME ASSOCIATE W/[place] [address] BHAVIKWHITNEY GUTIERRES TRANSVAGI 9 [facility] NAL INC INC COMPREHEN 38826 COMBINED COMBINED SIVE 9 PHYSICIAN PHYSICIAN METABOLIC S LAB S LAB PANEL ANTIBODY 70711 COMBINED COMBINED HELICOBAC [address] [place] [address] COMBINED COMBINED AMYLASE 9 PHYSICIAN PHYSICIAN S LAB S LAB 3D 47050 [facility] MONTEMAYOR, RENDERING 9 MEDICAL KIM P IMAGING W/INTERP& [place] [address] [place] ALBINA, MAXILLOFA 9 MEDICAL KIM P CIAL W/O IMAGING CONTRAST ASSOCIATE MATERIAL S 3D 57576 BHAVIK GUTIERRES RENDERING 9 [facility] W/INTERP INC INC & [place] [address] BHAVIK GUTIERRES HEAD/BRAI 9 [facility] N W/O INC INC CONTRAST MATERIAL URNLS DIP 45217 BHAVIK GUTIERRES 9 [facility] STICK/TAB INC INC LET REAGENT AUTO MICROSCOP Y URINE 50581 BHAVIK GUTIERRES 9 [facility] TEST INC INC VISUAL COLOR CMPRSN METHS CONTRACEP A4267 [facility] BHAVIK TIVE 9 [facility] CONDOM BANK ACCT MALE EACH INJ J1055 [facility] BHAVIK MDRXYPRGE 9 [facility] ACTAT BANK ACCT CNTRACPT USE 150 MG BLOOD 04342 FAMILY MARCOS, COUNT 9 CARE R LISETH COMPLETE ASSOCIATE AUTO&AUTO S DIFRNTL WBC FRAMES V2020 SALTY BILLIE, PURCHASES 9 VISION MELANIE M FITTING 23273 SALTY SCIASHLEY, SPECTACLE 9 VISION MELANIE M S XCPT APHAKIA MONOFOCAL 1 VISN V2103 SALTY WISE, PLANO 9 VISION MELANIE M TO+/-4.00 D SPHER 0.12-2.00 D CYL EA OPHTH 07318 SALTY WISE [facility] 9 VISION MELANIE M XM&EVAL COMPRHNSV ESTAB PT 1/> URINE 40053 [facility] VIVIAN 9 [facility] TEST CENTRAL DEPT VISUAL BANK ACCT COLOR CMPRSN METHS INJ J1055 [facility] VIVIAN MDRXYPRGE 9 [facility] CENTRAL DEPT ACTAT BANK ACCT CNTRACPT USE 150 MG BLOOD 59860 BHAVIK GUTIERRES COUNT 9 [facility] COMPLETE INC INC AUTO&AUTO DIFRNTL WBC URNLS DIP 52440 BHAVIK GUTIERRES 9 [facility] STICK/TAB INC INC LET REAGENT AUTO MICROSCOP Y IAADI 25189 BHAVIK GUTIERRES INFFLUENZ 9 [facility] A A VIRUS INC INC IAADI 07972 BHAVIK BHAVIK INFLUENZA 9 [facility] B VIRUS INC INC URINE 22985 BHAVIK GUTIERRES 9 [facility] TEST INC INC VISUAL COLOR CMPRSN METHS COMPREHEN 54907 BHAVIK GUTIERRES SIVE 9 [facility] [address] BHAVIK GUTIERRES STREPTOCO 9 [facility] CCUS INC INC GROUP A INJ J1055 [facility] BHAVIK MDRXYPRGE 9 [facility] ACTAT BANK ACCT CNTRACPT USE 150 MG CYTP 18932 [facility] BHAVIK CERV/VAG 9 [facility] AUTO THIN CENTRAL CENTER LAYER BANK ACCT PREP MNL SCREEN IADNA 86361 [facility] BHAVIK CHLAMYDIA 9 [facility] TRACHOMAT BANK ACCT IS AMPLIFIED PROBE TQ INJ J1055 [facility] BHAVIK MDRXYPRGE 9 [facility] STRON CENTRAL DUKE ACTAT BANK ACCT CNTRACPT USE 150 MG INJ J1055 [facility] BHAVIK MDRXYPRGE 8 [facility] STRON CENTRAL DUKE ACTAT BANK ACCT CNTRACPT USE 150 MG INJ J1055 DHS/[facility] BHAVIK MDRXYPRGE [address] [place] [address] ACTAT BANK ACCT CNTRACPT USE 150 MG INJ J1055 DHS/CO BHAVIK MDRXYPRGE [address] [place] [address] ACTAT BANK ACCT CNTRACPT USE 150 MG CONTRACEP A4267 [facility] BHAVIK TIVE [address] [place] [address] CONDOM BANK ACCT MALE EACH Encounters Encounter Start End Date Code Location Performer Type Date [facility] BHAVIK - 7 7 [facility] BHAVIK - 7 7 [facility] T OFFICE 91471 [facility] 7 7 PHYSICIAN T VISIT S GROUP 25 MINUTES HOSPITAL BHAVIK - 7 7 [facility]EN [facility] T EMERGENCY 74052 MARIAH HERMAN 7 7 PHYSICIAN U DEPARTMEN S, [facility] T VISIT HIGH/URGE NT SEVERITY EMERGENCY 17435 BHAVIK 7 7 [facility] DEPARTMEN [facility] T VISIT LIMITED/M INOR PROB HOSPITAL BHAVIK - 7 7 [facility] OUT[facility]IEN [facility] T OFFICE 03596 [facility] MELANIE OUTPATIEN 6 6 PHYSICIAN T VISIT S GROUP 15 MINUTES OFFICE 85988 [facility] ANUP OUTPATIEN 6 6 CARE KAYKAY T VISIT ASSOCIATE 15 S MINUTES OFFICE 52823 [facility] KARRIE TOYessenia CONSULTAT 6 6 PHYSICIAN ION S GROUP NEW/ESTAB PATIENT 30 MIN HOSPITAL BHAVIK - 6 6 [facility] OUTPATIEN INC T EMERGENCY 63879 BHAVIK DEPT 6 6 [facility] VISIT INC HIGH SEVERITY& THREAT FUNCJ EMERGENCY 56255 MARIAH OLIVEIRA DEPT 6 6 PHYSICIAN LEIGHANN VISIT S, [facility] HIGH SEVERITY& THREAT FUNCJ PERIODIC 78809 [facility] PREVENTIV 6 6 PHYSICIAN E MED EST S GROUP PATIENT 18-39 YRS EMERGENCY 51252 MARIAH HERMAN 5 5 PHYSICIAN Mary [facility]ZOR [facility] S, [facility] T VISIT MODERATE SEVERITY OFFICE 68533 FAMILY RODRÍGUEZ OUTPATIEN 5 5 CARE R H T VISIT ASSOCIATE 15 S MINUTES HOSPITAL BHAVIK - 5 5 [facility] OUTPATIEN INC T EMERGENCY 98224 MARIAH OLIVEIRA 5 5 PHYSICIAN [facility] S, [facility] T VISIT HIGH/URGE NT SEVERITY EMERGENCY 10016 BHAVIK 5 5 [facility] DEPARTMEN INC T VISIT MODERATE SEVERITY OFFICE 22040 [facility] STEPHANIE LOPEZ 5 5 PHYSICIAN MARIZA T VISIT S GROUP 15 MINUTES OFFICE 73793 [facility] MARTINEZ OUTPATIEN 5 5 [facility] T VISIT CHIROPRAC 15 TIC CENTE MINUTES EMERGENCY 75189 MARIAH OLIVEIRA 5 5 PHYSICIAN [facility] S, [facility] T VISIT HIGH/URGE NT SEVERITY HOSPITAL BHAVIK - 5 5 [facility] OUTPATIEN INC T OFFICE 04442 BHAVIK SLAUGHTER OUTPATIEN 5 5 [facility] VISIT HOSPITAL 15 MINUTES HOSPITAL BHAVIK - 5 5 [facility] OUTPATIEN INC T EMERGENCY 65596 BHAVIK 5 5 [facility] DEPARTMEN INC T VISIT MODERATE SEVERITY EMERGENCY 52181 BHAVIK OBRIENUYOMADE 5 5 [facility] T VISIT P MODERATE SEVERITY EMERGENCY 37834 BHAVIK 5 5 [facility] DEPARTMEN INC T VISIT LOW/MODER SEVERITY HOSPITAL BHAVIK - 5 5 [facility] OUTPATIEN [facility] T OFFICE 61015 BHAVIK WEBB OUTPATIEN [address] MINUTES OFFICE 93072 [facility] BROWN OUTPATIEN 4 4 PHYSICIAN MARIZA T VISIT S GROUP 25 MINUTES HOSPITAL BHAVIK - 4 4 [facility] OUTPATIEN INC T EMERGENCY 81132 BHAVIK 4 4 [facility] DEPARTMEN INC T VISIT LOW/MODER SEVERITY EMERGENCY 63336 ELKIN OLIVEIRA 4 4 [facility] DEPARTMEN EMERGENCY T VISIT PHYS HIGH/URGE NT SEVERITY EMERGENCY 14586 BHAVIK 4 4 [facility] DEPARTMEN INC T VISIT LOW/MODER SEVERITY HOSPITAL BHAVIK - 4 4 [facility] OUTPATIEN INC T OFFICE 42531 ANUP Whitmore OUTPATIEN 4 4 G G T VISIT 25 MINUTES OFFICE 24514 ANUP [place] OUTPATIEN 4 4 G G T VISIT 15 MINUTES EMERGENCY 93640 BHAVIK 4 4 [facility] DEPARTMEN INC T VISIT MODERATE SEVERITY HOSPITAL BHAVIK - 4 4 [facility] OUTPATIEN INC T OFFICE 97594 MARCOS MARCOS OUTPATIEN 4 4 R H R H T VISIT 15 MINUTES EMERGENCY 55975 JOSH MORENO 4 4 III AMITA III [facility] DEPARTMEN T VISIT HIGH/URGE NT SEVERITY HOSPITAL BHAVIK - 4 4 [facility] OUTPATIEN INC T EMERGENCY 62734 BHAVIK 4 4 [facility] DEPARTMEN INC T VISIT LOW/MODER SEVERITY Emergency CAIN Oliveira MD (ER) 3 06:19 3 08:15 [facility] EMERGENCY 63410 BHAVIK 3 3 [facility] DEPARTMEN INC T VISIT MODERATE SEVERITY HOSPITAL BHAVIK - 3 3 [facility] OUTPATIEN INC T EMERGENCY 68213 MELANIE OLIVEIRA 3 3 LEIGHANN LEIGHANN DEPARTMEN T VISIT HIGH/URGE NT SEVERITY OFFICE 79195 STEPHANIE PRECIADOE OUTPATIEN 3 3 MARIZA MARIZA T VISIT 15 MINUTES OFFICE 07541 STEPHANIE BROWN OUTPATIEN 3 3 MARIZA MARIZA T NEW 45 MINUTES HOSPITAL BHAVIK - 3 3 [facility] T OFFICE 38039 ANUP Whitmore OUTPATIEN 3 3 G G T VISIT 15 MINUTES OFFICE 67489 ANUP [facility] OUTPATIEN 3 3 G G T VISIT 15 MINUTES OFFICE 84612 ANUP [facility] OUTPATIEN 3 3 G G T VISIT 15 MINUTES OFFICE 64275 ANUP Whitmore OUTPATIEN 3 3 G T VISIT 25 MINUTES Emergency CAIN Oliveira MD (ER) 3 02:23 3 02:39 [facility] EMERGENCY 36879 MELANIE OLIVEIRA 3 3 [facility] DEPARTMEN T VISIT HIGH/URGE NT SEVERITY HOSPITAL [facility] - 3 3 [facility] T EMERGENCY 30847 BHAVIK 3 3 [facility] DEPARTMEN INC T VISIT LIMITED/M INOR PROB OFFICE 10611 ANUP Whitmore OUTPATIEN 3 3 G G T VISIT 15 MINUTES OFFICE 75371 ANUP Whitmore OUTPATIEN 3 3 G G T VISIT 25 MINUTES Emergency CAIN MORENO (ER) 3 17:22 3 18:29 [facility] EMERGENCY 15260 BHAVIK 3 3 [facility] INC T VISIT MODERATE SEVERITY HOSPITAL [facility] - 3 3 [facility] INC T EMERGENCY 15970 JOSH MORENO DEPT 3 3 III AMITA III AMITA VISIT HIGH SEVERITY& THREAT FUNJ EMERGENCY 03420 [facility] 3 3 [facility] T VISIT HIGH/URGE NT SEVERITY EMERGENCY 35736 MELANIE OLIVEIRA DEPT 3 3 LEIGHANN LEIGHANN VISIT HIGH SEVERITY& THREAT [facility] - 3 3 [facility] T OFFICE 00442 FAMILY OUTPATIEN 2 2 CARE T VISIT ASSOCIATE 15 S MINUTES OFFICE 70335 BHAVIK GUTIERRES OUTPATIEN 2 2 [facility] 10 MINUTES OFFICE 16957 FAMILY OUTPATIEN 2 2 CARE T VISIT ASSOCIATE 15 S MINUTES [facility] BHAVIK - 2 2 [facility] INC T OFFICE 01824 BHAVIK GUTIERRES OUTPATIEN 2 2 [facility] 15 MINUTES [facility]OSPITAL [facility] - 2 2 [facility] T OFFICE 39623 ANUP Whitmore OUTPATIEN 2 2 G G T VISIT 15 MINUTES OFFICE 48191 [facility] GUTIERRES OUTPATIEN 2 2 [facility] 10 MINUTES HOSPITAL [facility] - 2 2 [facility] INC T OFFICE 54051 WILEY JAMA OUTPATIEN 2 2 VIN VIN T VISIT 15 MINUTES HOSPITAL [facility] - 2 2 [facility] T EMERGENCY 98096 [facility] 2 2 [facility] DEPARTMEN INC T VISIT MODERATE SEVERITY EMERGENCY 70495 HALIMA OLIVEIRA DEPT 2 2 EMERGENCY [facility]IGHANN VISIT SERVICES HIGH SEVERITY& THREAT [facility] OFFICE 51737 ANUP Whitmore OUTPATIEN 2 2 T VISIT 15 MINUTES PERIODIC 80198 [facility] GUTIERRES PREVENTIV 2 2 [facility] PATIENT 18-39 YRS OFFICE 66612 ANUP Myranda ANUP [facility] OUTPATIEN 2 2 T VISIT 25 MINUTES OFFICE 53565 [facility] GUTIERRES OUTPATIEN 2 2 [facility] 10 MINUTES OFFICE 33428 FAMILY MARCOS OUTPATIEN 2 2 CARE R H T VISIT ASSOCIATE 15 S MINUTES OFFICE 13339 [facility] GUTIERRES OUTPATIEN 1 1 [facility] 10 MINUTES OFFICE 46836 BHAVIK GUTIERRES OUTPATIEN 1 1 [facility] 15 MINUTES OFFICE 76530 BH[facility] GUTIERRES OUTPATIEN 1 1 [facility] 10 MINUTES OFFICE 54890 FAMILY ANUP Whitmore OUTPATIEN 1 1 CARE T VISIT ASSOCIATE 15 S MINUTES OFFICE 90607 FAMILY LIZZIE OUTPATIEN 1 1 [facility] T VISIT ASSOCIATE 15 S MINUTES PERIODIC 62838 BHAVIK GUTIERRES PREVENTIV 1 1 [facility] PATIENT 18-39 YRS OFFICE 99654 BHAVIK GUTIERRES OUTPATIEN 1 1 [facility] 10 MINUTES OFFICE 40575 BHAVIK GUTIERRES OUTPATIEN 0 0 [facility] 10 MINUTES OFFICE 92763 BHAVIK GUTIERRES OUTPATIEN 0 0 [facility] 15 MINUTES OFFICE 62491 [facility] GUTIERRES OUTPATIEN 0 0 [facility] 15 MINUTES OFFICE 86968 [facility]IK GUTIERRES OUTPATIEN 0 0 [facility] [facility] 10 MINUTES OFFICE [id number] FAMILY Myranda HEBERT OUTPATIEN 0 0 CARE G T VISIT ASSOCIATE 15 S MINUTES OFFICE 32666 [facility] GUTIERRES OUTPATIEN 0 0 [facility] 15 MINUTES OFFICE 73961 Myranda CAMPOSEN 0 0 CARE G T VISIT ASSOCIATE 15 S MINUTES PERIODIC 73499 [facility] GUTIERRES PREVENTIV 0 0 [facility] E MED EST [facility] PATIENT 18-39 YRS EMERGENCY 12754 HALIMA MORENO 0 0 EMERGENCY III, DEPARTMEN SERVICES OMAIRA T VISIT HIGH/URGE ASSOCIATE NT S SEVERITY EMERGENCY 35368 [facility] 0 0 [facility] T VISIT MODERATE SEVERITY [facility] 0 [facility] - [facility] 0 [facility] INC T EMERGENCY 06515 [facility] 0 0 [facility] DEPART[facility] INC T VISIT HIGH/URGE NT SEVERITY OFFICE 02191 JADA ELIAS OUTPATIEN 9 9 [facility] ARDON G T VISIT 15 MINUTES OFFICE 58971 JADA ELIAS OUTPATIEN 9 9 DUGL[facility] Arroyo T NEW 20 MINUTES OFFICE 33133 Myranda CAMPOS 9 9 CARE G T VISIT ASSOCIATE 15 S MINUTES OFFICE 88845 [facility]IK OUTPATIEN 9 9 [facility]ALTH [facility] T VISIT [facility] 10 BANK ACCT MINUTES OFFICE 06149 JOHN MISTRY 9 9 CARE OSIRIS T T VISIT ASSOCIATE 25 S MINUTES OFFICE 69924 Myranda CAMPOS 9 9 CARE G T VISIT ASSOCIATE 15 S MINUTES HOSPITAL [facility] - 9 9 [facility] OUTPATIEN INC T OFFICE 07964 Myranda CAMPOS 9 9 CARE G T VISIT ASSOCIATE 25 S MINUTES EMERGENCY 75124 [facility] 9 9 [facility] DEPARTMEN INC T VISIT LOW/MODER SEVERITY [facility]OSPITAL [facility] - 9 9 [facility] OUTPATIEN INC T EMERGENCY 87341 HALIMA OLIVEIRA, DEPT 9 9 EMERGENCY [facility] VISIT SERVICES HIGH SEVERITY& ASSOCIATE THREAT S [facility] EMERGENCY 79967 HALIMA OLIVEIRA, [address] [facility] SERVICES T VISIT HIGH/URGE ASSOCIATE NT S SEVERITY [facility]OSPITAL [facility] - 9 9 [facility] T OFFICE 06888 [facility] OUTPATIEN 9 9 [facility] 10 BANK ACCT MINUTES OFFICE 85209 FAMILY MARCOSJOHN Pinto 9 9 CARE R LISETH T VISIT ASSOCIATE 15 S MINUTES OFFICE 00934 [facility] VIVIAN LOPEZ 9 9 [facility] T NEW 20 CENTRAL DEPT MINUTES BANK ACCT EMERGENCY 08395 [facility] 9 9 [facility] INC T VISIT MODERATE SEVERITY EMERGENCY 53164 HALIMA OLIVEIRA, [address] [facility] SERVICES T VISIT HIGH/URGE ASSOCIATE NT S SEVERITY HOSPITAL [facility] - 9 9 [facility] INC T PERIODIC 10698 [facility] PREVENTIV 9 9 [facility] E MED EST [facility] PATIENT BANK ACCT 18-39 YRS EMERGENCY 30003 DONAL OLIVEIRA, [address] [facility] CORPOR[facility] T VISIT ON MODERATE SEVERITY EMERGENCY 04073 [facility] 9 9 [facility] DEPARTMEN INC T VISIT LIMITED/M INOR PROB HOSPITAL [facility] - 9 9 [facility] T OFFICE 93185 [facility] OUTPATIEN 9 9 [facility] 10 BANK ACCT MINUTES OFFICE 65991 [facility] OUTPATIEN 8 8 [facility] T VISIT [facility] 10 BANK ACCT MINUTES HOSPITAL [facility] - 8 8 [facility] OUTPATIEN INC T EMERGENCY 89344 [facility] 8 8 [facility] DEPARTMEN INC T VISIT LIMITED/M INOR PROB OFFICE 16779 [facility] OUTPATIEN 8 8 [facility] T VISIT [facility] 10 BANK ACCT MINUTES OFFICE 35057 [facility] OUTPATIEN 8 8 [facility] T VISIT [facility] 10 BANK ACCT MINUTES OFFICE 42885 [facility] OUTPATIEN 8 8 [facility] T VISIT [facility] 10 BANK ACCT MINUTES
--- OUTSIDE RECORDS SUMMARY | 2017-06-12 20:58 | External Medical Summary Rpt | CCD ---
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 Name Role Phone CHATO, CHATO Unavailable Unavailable BESSHERIN BRIDGER, BESSON Unavailable Unavailable BRIDGER [facility] Unavailable Unavailable SERVICE, [facility]available Unavailable SERVICE, [facility] [place] [facility], [facility] Unavailable Unavailable BROWN, BROWN Unavailable [...] Unavailable Unavailable Myranda DURAN COOPER, Unavailable Unavailable J Cruz JOSE ENRIQUE MILLA, Unavailable Unavailable JOSE ENRIQUE MILLA JOSE ENRIQUE MILLA, Unavailable Unavailable JOSE ENRIQUE MILLA JOSE ENRIQUE, GAMA, Unavailable Unavailable JOSE ENRIQUE, GAMA [place] [facility] SUKHJINDER LEIGHANN, SUKHJINDER Unavailable Unavailable [facility] Unavailable [facility], [facility] MELANIE, MELANIE Unavailable Unavailable MELANIE LEIGHANN, MELANIE Unavailable Unavailable LEIGHANN MELANIE LEIGHANN, MELANIE Unavailable Unavailable LEIGHANN CHERI NAVARRO S, Unavailable Unavailable CHERI NAVARRO S JAMA VIN, JAMA Unavailable Unavailable VIN JAMA VIN, JAMA Unavailable Unavailable VIN [facility] Unavailable Unavailable [place], [facility] Unavailable Unavailable [place], [facility] Unavailable Unavailable INC, [facility] Unavailable Unavailable HOSPITAL, [facility] Unavailable Unavailable [facility]OSPITAL P, [facility], Unavailable Unavailable [facility] ILUYOMADE ROT, Unavailable Unavailable [facility], [facility] Unavailable [facility]available [facility], [facility] Unavailable Unavailable [facility], [facility] DUGLAS ELIAS, Unavailable Unavailable DUGLAS ELIAS JR DWI, ZOË Unavailable Unavailable JR DWI BORGES, BORGES Unavailable Unavailable BORGES LANE, BORGES Unavailable Unavailable LANE HALIMA VARGHESE Unavailable [facility]available [facility] MICHELLE GAR, Unavailable Unavailable MICHELLE GAR KIM MONTEMAYOR P, Unavailable Unavailable KIM MONTEMAYOR P MULBERRY CLARKE, Unavailable Unavailable MULBERRY CLARKE MULBERRY, OSIRIS T, Unavailable Unavailable MULBERRY, OSIRIS T [facility], [facility] MARCOS R H, Unavailable Unavailable MARCOS R H MARCOS R H, Unavailable Unavailable MARCOS R H MARCOSDorinda, Unavailable Unavailable MARCOS, R LISETH CHRISTIANSON JAM, CHRISTIANSON Unavailable Unavailable JAM [facility], [facility], [facility] Unavailable Unavailable LABS, [facility], Un[facility] Unavailable [facility], [facility]available Unavailable LAB, [facility] Unavailable Unavailable LAB, [facility] PICKLESIMER JR NELY, Unavailable Unavailable PICKLESIMER JR NELY KARRIE TOD, KARRIE TOD Unavailable Unavailable [id number], Unavailable Unavailable [id number] Unavailable Unavailable [id number] # [id number], [facility] [id number] # [id number] MELANIE WISE, Unavailable Unavailable MELANIE WISE, TRACEY Unavailable Unavailable ADRIANA SOTINGEANU, Unavailable Unavailable SOTINGEANU SOTINGEANU ERNA, Unavailable Unavailable SOTINGEANU ERNA [facility] Unavailable Unavailable [facility], [facility] ADALBERTO AYALA, ADALBERTO Unavailable Unavailable AYALA [facility] Unavailable Unavailable #591, [facility] # Unavailable Unavailable [id number], [facility] # [id number] WEHRMAN III AMITA, Unavailable Unavailable WEHRMAN III AMITA WEHRMAN III AMITA, Unavailable Unavailable WEHRMAN III AMITA WEHRMAN III, OMAIRA, Unavailable Unavailable WELE IIIOMAIRA, MARIA ELENA GARCÍA Unavailable Unavailable MARIA ELENA MCDONALD Unavailable Unavailable [facility] Unavailable Unavailable [facility] [place], [facility] Purpose Continuity of Care Document - 11-01-2007 through 2016 Problems Code Diagnosis DOS Provider Status R5383 OTHER 04-06-2017 [facility] [id number] UNSPECIFIED 10-14-2016 [facility]IAN [facility] CYST LEFT IMAGING ASS SIDE N926 IRREGULAR 10-14-2016 [facility] MENSTRUATIO MEDICAL N IMAGING ASS UNSPECIFIED N938 OTHER SPEC 10-14-2016 [facility] ABNORMAL MEDICAL UTERINE & IMAGING ASS VAGINAL BLEEDING N920 EXCESS & 09-24-2016 [facility]QUENT [facility] MENSTRUATIO GROUP N W/REGULAR CYCLE R5382 CHRONIC 09-24-2016 [facility] UNSPECIFIED INC R635 ABNORMAL 09-24-2016 [facility] WE[facility] GAIN [facility] A084 VIRAL 08-31-2016 [facility] INTESTINAL [facility] INFECTION INC UNSPECIFIED K529 NONINFECTIV 08-31-2016 [facility] GA[facility]OENTER [facility] ITIS & COLITIS UNS O60964 PERSONAL 08-31-2016 [facility] HISTORY OF [facility] NICOTINE INC DEPENDENCE H6983 OTHER SPEC 07-22-2016 [facility] DISORDERS PHYSICIANS EUSTACHIAN GROUP TUBE BILAT Y28603 CELLULITIS 07-22-2016 [facility] OF HEAD ANY PHYSICIANS PART GROUP EXCEPT [...] ASSOCIATES CHOLECYST W/O OBSTRUCTION K810 ACUTE 03-05-2016 [facility] CHOLECYSTIT PHYSICIANS IS GROUP R1013 EPIGASTRIC 03-05-2016 [facility] PAIN PHYSICIANS GROUP R112 NAUSEA WITH 03-05-2016 [facility] VOMITING PHYSICIANS UNSPECIFIED GROUP K8020 CALCULUS GB 03-04-2016 [facility] W/O PHYSICIANS, CHOLECYSTIT PLLC IS W/O OBSTRUCTION K828 OTHER 03-04-2016 [facility] SPECIFIED MEDICAL DISEASES OF IMAGING ASS GALLBLADDER R1110 VOMITING 03-04-2016 [facility] UNSPECIFIED [facility]ICAL IMAGING ASS R079 CHEST PAIN 02-20-2016 [facility] UNSPECIFIED [facility]ICAL IMAGING ASS R1031 RIGHT LOWER 02-19-2016 [facility] IM[facility] ASS E039 HYPOTHYROID 01-04-2016 [facility] ISM [facility] UNSPECIFIED LA I10 ESSENTIAL 01-04-2016 [facility] PRIMARY PHYS[facility]IANS HYPERTENSIO LA N D2271 MELANOCYTIC 10-30-2015 [facility] NEVI RIGHT LLC LOWER LIMB INCLUDING HIP D2370 OTHER 10-30-2015 [facility] BENIGN PHYSICIANS NEOPLASM GROUP SKIN UNS LOW LIMB INCL HIP R52 PAIN 10-30-2015 [facility] UNSPECIFIED PHYSICIANS GROUP Y94008 ENCOUNTER 10-02-2015 [facility] VARNISH 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 EXAM LLC GENERAL RTN W/O ABNORMAL FIND Z113 ENCOUNTER 10-02-2015 [facility], SCREEN LLC INFECTIONS SEXL MODE TRANSMISSN C67289 PAIN IN 08-25-2015 [facility] M791 MYALGIA 08-25-2015 [facility]C K649 UNSPECIFIED 07-20-2015 [facility] HEMORRHOIDS K644 RESIDUAL 07-14-2015 [facility] SKIN TAGS INC N925 OTHER 07-02-2015 [facility] SPECIFIED PHYSICIANS IRREGULAR GROUP MENSTRUATIO N M9900 SEGMENTAL 06-19-2015 [place] [facility] DYSFUNCTION OF HEAD REGION M9902 SEGMENTAL & 06-19-2015 [place] [facility] DYSFUNCTION C CENTE THORACIC REGION M9903 SEGMENTAL & 06-19-2015 [place] [facility] DYSFUNCTION C CENTE OF LUMBAR REGION 2768 HYPOPOTASSE 03-07-2015 [facility] P 54692 ABDOMINAL 03-07-2015 [facility] PAIN, PHYSICIANS, EPIGASTRIC PLLC V1582 PERS HX 03-07-2015 [place] TOBACCO USE [facility] 07731 ACUT 02-27-2015 [place] SUPPRATV [facility] MEDIA W/O SPONT RUP EARDRUM 79621 NAUSEA WITH 12-30-2014 [place] 93269 DIARRHEA 12-30-2014 [facility] 5589 OTH&UNSPEC 12-29-2014 [place] NONINFECTIO [facility] P GASTROENTER ITIS&COLITI S 51797 VOMITING 11-08-2014 [facility] [place] P 4789 OTHER&UNSPE 09-01-2014 [facility] RESPIRATORY TRACT 6160 CERVICITIS 07-07-2014 [facility] AND LLC ENDOCERVICI TIS V221 SUPERVISION 07-07-2014 [facility], OF OTHER LLC NORMAL V7242 07-07-2014 [facility] EXAMINATION PHYSICIANS OR TEST GROUP POSITIVE RESULT V745 SCREENING 07-07-2014 [facility], EXAMINATION LLC FOR VENEREAL DISEASE 84914 BN&JNT D/O 06-22-2014 [facility] BACK N EMERGENCY PELVIS&LW PHYS LIMBS ANTEPARTUM 7242 LUMBAGO 06-22-2014 [facility] EMERGENCY PHYS 7871 HEARTBURN 05-18-2014 [facility] 41464 ABDOMINAL 05-18-2014 [facility] PAIN RIGHT [facility] UPPER INC [place] V5869 LONG-TERM 03-08-2014 [facility] (CURRENT) PHYSICIANS USE OF LA OTHER MEDICATIONS 5368 DYSPEPSIA&O 02-01-2014 ANUP Ar[facility] THER SPEC DISORDERS FUNCTION STOMACH 6269 UNS D/O 02-01-2014 ANUP Arroyo MENSTRUATIO N&OTH ABN BLEED FE GNT TRACT 37004 UNSPECIFIED 11-25-2013 [facility]IA [facility] 7873 FLATULENCE 11-25-2013 MARIA ELENA GARCÍA ERUCTATION AND GAS PAIN 81384 ABDOMINAL/P 11-25-2013 [facility] ELVIC [facility] SWELLING INC MASS/LUMP UNSPEC SITE 6264 IRREGULAR 11-23-2013 [place] [address] NAUSEA 10-28-2013 WEHRMAN III ALONE AMITA 4660 ACUTE 2013 [facility]IS [facility] 56561 ACUTE 2013 [facility] GASTRITIS [facility] WITHOUT INC MENTION OF HEMORRHAGE 82204 UNS 2013 MELANIE LAWTON GASTRITIS&G ASTRODUODIT IS W/O MENTION HEMORR 6201 CORPUS 07-04-2013 STEPHANIE MARIZA LUTEUM CYST OR HEMATOMA 6259 UNSPEC 07-04-2013 STE[facility] DAWKINS SYMPTOM ASSOC W/FEMALE GENITAL ORGANS 21283 ABDOMINAL 05-19-2013 [facility], LEFT [facility] [place] 6253 DYSMENORRHE 04-12-2013 STEPHANIE MARIZA A 6260 ABSENCE OF 04-12-2013 [facility] MENSTRUATIO [facility] N INC 5990 URINARY 12-23-2012 [facility] TRACT [facility] INFECTION INC SITE NOT SPECIFIED 486 PNEUMONIA, 10-20-2012 WEHRMAN III ORGANISM AMITA UNSPECIFIED 70083 FEVER 10-20-2012 WEHRMAN III UNSPECIFIED AMITA 7862 COUGH 10-20-2012 JOSE ENRIQUE MILLA 09997 ABDOMINAL 10-20-2012 WEHRMAN III PAIN, AMITA UNSPECIFIED SITE 0091 COLITIS 08-27-2012 [facility] ENTERIT&GAS ASSOCIATES TROENTERIT INF ORIGIN 6262 EXCESSIVE 08-27-2012 [facility] OR FREQUENT ASSOCIATES MENSTRUATIO N 53723 INSOMNIA 08-27-2012 [facility] UNSPECIFIED ASSOCIATES V016 CONTACT 07-15-2012 [facility] WITH OR HEALTH EXPOSURE TO [place] VENEREAL DISEASES 32497 MASTODYNIA 06-24-2012 [place] [facility] 25742 ABDOMINAL 06-24-2012 [place] PAIN, [facility] GENERALIZED INC V2541 SURVEILLANC 06-07-2012 [facility] E [facility] PRESCRIBED CENTER CONTRACEPT PILL 3819 UNSPECIFIED 06-02-2012 ANUP Arroyo EUSTACHIAN TUBE DISORDER 77800 LOSS OF 06-02-2012 [place] WEIGHT [facility] V7241 03-30-2012 [facility] EXAMINATION HEALTH OR TEST CENTER NEGATIVE RESULT 5758 OTHER 02-05-2012 [place] SPECIFIED MEDICAL DISORDER OF IMAGING ASS GALLBLADDER 43528 ABDOMINAL 02-03-2012 [facility] PAIN OTHER SPECIFIED SITE 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 2662 OTHER 01-06-2012 [facility] B-COMPLEX HEALTH DEFICIENCIE CENTER S 6228 OTHER 01-06-2012 PATHOLOGY & SPECIFIED CYTOLOGY NONINFLAMMA LAB TORY DISORDER CERVIX V1589 OTH SPEC 01-06-2012 PATHOLOGY & PERS HX CYTOLOGY PRESENTING LAB [facility] OT V2509 OT GENERAL 01-06-2012 [facility] HEALTH CNSL&ADVICE CENTER CONTRACEPT MANAGEMENT V2549 SURVEILLANC 10-29-2011 [facility] PRSC CENTER CONTRACEPT METHOD 460 ACUTE 09-18-2011 [facility] NASOPHARYNG ASSOCIATES ITIS 6983 LICHENIFICA 03-05-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[facility] TION AND ASSOCIATES LICHEN SIMPLEX CHRONICUS 03552 UNSPECIFIED 01-13-2011 [facility] DIAGNOSTIC AND LAB [facility] VULVOVAGINI TIS V7231 ROUTINE 12-24-2010 PATHOLOGY & GYNECOLOGIC CYTOLOGY AL LAB EXAMINATION 7231 CERVICALGIA 06-28-2010 [facility] HEALTH CENTER 55254 NONSPEC 06-28-2010 [facility] ABNORM PAP HEALTH CERV CENTER UNSATISFACT ORY CYTOLOGY 89623 PAP SMER 06-07-2010 [facility] CERV HEALTH W/ATYPICAL CENTER SQUAMOUS CELLS UNDET 8830 OPEN WOUND 10-20-2009 [facility] WITHOUT SERVICES MENTION ASSOCIATES COMPLICATIO N V065 NEED 10-20-2009 [facility] PROPHYLACTI [facility] C INC VACCINATION W/TETANUS-D [facility] 48891 UNSPECIFIED 08-21-2009 ELIASDUGLAS Cruz OBSTRUCTION OF EUSTACHIAN TUBE 4779 ALLERGIC 08-21-2009 LILLIANA ELIAS CAUSE UNSPECIFIED 55427 DYSFUNCTION 08-16-2009 JADA CHARISMA Arroyo EUSTACHIAN TUBE 17771 UNSPECIFIED 08-16-2009 DUGLAS ELIAS SENSORINEUR AL HEARING LOSS 47408 ABDOMINAL 08-08-2009 [facility] PAIN, ASSOCIATES PERIUMBILIC 92589 MIGRAINE 04-21-2009 [facility] UNSP W/O [facility] INTRACT W/O INC STATUS MIGRAINOSUS 4619 ACUTE 04-21-2009 [facility] SINUSITIS, [facility] UNSPECIFIED INC 7840 HEADACHE 04-21-2009 [facility] 80000 REGULAR 03-09-2009 [facility] ASTIGMATISM VISION 52304 UNSPECIFIED 12-28-2008 [facility] INFECTION SERVICES IN CCE & ASSOCIATES UNS SITE 1121 CANDIDIASIS 12-05-2008 [facility] CENTRAL BANK ACCT 6929 CONTACT 04-18-2008 [facility] DERMATITIS& [facility] OTHER INC ECZEMA DUE UNSPEC CAUSE 5889 UNSPEC D/O 11-03-2007 [facility] RESULT FROM HEALTH IMPAIRED CENTRAL RENAL BANK ACCT FUNCTION V2502 GENERAL 11-01-2007 [facility] CNSL HEALTH INITIATION CENTRAL OTH BANK ACCT CONTRACEPT MEASURES Medications Na ND Rx Da Fi Fi [...] ve TA 11 20 20 19 AI MN 21 17 17 49 D N 0 [...] #3 25 93 8 MG TA B NE 00 07 10 4 30 30 [...] L- 25 OP ti MC 80 6- 6 00 MA 98 ER ve IN 00 20 20 RT 7 OL 31 11 11 JOSÉ MIGUEL ON 5 PH HN E AR G 0. MA 02 CY 5% # CR 10 EA 05 M 91 NE 00 01 06 6 30 30 NM 71 CO Ac XI 18 -0 -2 .0 L- 01 OP ti UM 65 6- 8- 00 MA 45 ER ve 04 [address] 03 11 11 JOSÉ MIGUEL 1 PH HN 40 AR G MA MG CY # CA PS 10 UL 05 E 91 NE 00 01 06 6 30 30 NM 71 CO Ac XI 18 -0 -0 .0 L- 01 OP ti UM 65 6- 1- 00 MA 45 ER ve 04 [address] 03 11 11 JOSÉ MIGUEL 1 PH HN 40 AR G MA MG CY # CA PS 10 UL 05 E 91 ME 00 05 05 0 70 30 NM 71 DAVID Ac TR 78 -1 -1 .0 L- 19 MM ti ON 17 6 00 MA 46 ON ve ID 07 20 20 RT 4 D AZ 78 11 11 KA OL 7 PH TH E AR AR VA MA IN GI CY E NA # Y L 0. 10 75 05 % 91 GL DO 53 05 05 0 14 7 NM 71 DAVID Ac XY 48 -1 -1 .0 L- 19 MM ti CY 90 6 6 00 MA 46 ON ve CL 12 20 20 RT 6 D IN 00 11 11 KA E 2 PH TH HY AR AR CL MA IN AT CY E E # Y 10 0 10 MG 05 91 TA B NE 00 01 04 6 30 30 NM 71 CO Ac XI 18 -0 -2 .0 L- 01 OP ti UM 65 6- 9- 00 MA 45 ER ve 04 [address] 03 11 11 JOSÉ MIGUEL 1 PH HN 40 AR G MA MG CY # CA PS 10 UL 05 E 91 NE 00 01 03 6 30 30 NM 71 CO Ac XI 18 -0 -2 .0 L- 01 OP ti UM 65 6- 9- 00 MA 45 ER ve 04 [address] 03 11 11 JOSÉ MIGUEL 1 PH HN 40 AR G MA MG CY # CA PS 10 UL 05 E 91 NE 00 01 03 6 30 30 NM 71 CO Ac XI 18 -0 -0 [...] CA PS 10 UL 05 E 91 66 10 11 00 12 6 WA 70 MU Ac 99 -2 -0 0. L- 42 LB ti 20 2- 5- 00 MA 44 ER ve 22 20 20 0 RT 0 RY 00 09 09 4 PH BR AR IA MA N CY T #5 91 IA 68 10 11 00 10 2 WA 70 MU Ac OM 38 -2 -0 .0 L- 42 LB ti ET 20 2- 5- 00 MA 43 ER ve DAVID 04 20 20 RT 9 RY ZI 00 09 09 NE 1 PH BR AR IA 12 MA N .5 CY T MG #5 91 TA BL ET TA 00 10 10 00 10 5 RI 80 DAVID Ac MN 00 -1 -2 .0 TE 39 MM [...] CY CA #5 PS 91 UL E 51 10 10 00 60 15 WA 70 CO Ac 99 -0 -2 .0 L- 40 OP ti 10 8- 2- 00 MA 51 ER ve 32 20 20 RT 0 50 09 09 JOSÉ MIGUEL 1 PH HN AR G MA CY #5 91 IA 68 10 10 00 10 2 RI 80 DAVID Ac OM 38 -1 -2 .0 TE 39 MM ti ET 20 3- 2- 00 94 ON ve DAVID 04 20 20 AI D ZI 00 09 09 D KA NE 1 PH TH AR AR 12 M IN .5 #3 E 93 Y MG 8 TA BL ET 00 08 10 00 8. 2 WA 44 GA Ac 40 -2 -0 00 L- 80 IN ti 60 2- 8- 0 MA 01 EY ve 35 20 20 RT 6 70 09 09 MN 5 PH CH AR AE MA L CY S #5 91 CE 68 08 10 00 21 7 WA 70 GA Ac PH 18 -2 -0 .0 L- 38 IN ti AL 00 2- 8- 00 MA 71 EY ve EX 12 20 20 RT 1 IN 20 09 09 MN 1 PH CH 50 AR AE 0 MA L MG CY S CA #5 PS 91 UL E 24 08 08 00 56 14 WA [...] ON 20 7- 3- 0 MA 71 MN ve AZ 10 20 20 RT 3 E OL 34 09 09 JR E 0 PH 15 AR WI 0 MA LL MG CY IA M TA #5 F BL 91 ET PO 00 03 04 00 52 30 RI 77 NO Ac LY 57 -2 -0 7. TE 69 RF ti ET 40 3- 9- 00 59 LE ve HY 41 20 20 0 AI ET LE 20 09 09 D R NE 5 PH AR HE GL M NR YC #3 Y OL 93 8 33 50 PO WD 00 03 04 00 45 20 RI 77 NO Ac 09 -2 -0 .0 TE 69 RF ti 30 3- 9- 00 61 LE ve 67 20 20 AI ET 39 09 09 D R 5 PH AR HE M NR #3 Y 93 8 RI 00 03 04 00 30 30 RI 77 NO Ac SP 09 -2 -0 .0 TE 69 RF ti ER 30 3- 9- 00 58 LE ve ID 22 20 20 AI ET ON 50 09 09 D R E 6 PH 0. AR HE 5 M NR MG #3 Y 93 TA 8 BL ET Procedures Procedure DOS Code Location Performer Comment COMPREHEN 51696 [facility] SIVE 7 [facility] [place] [address] [facility] FOLIC [facility] [place] [address] [facility] FREE 7 [facility] [place] [address] [facility] G[facility] THYROID 7 [facility] STIMULATI INC INC NG HORMONE TSH CYANOCOBA 31386 [facility] KELSEY 7 [facility] VITAMIN INC INC B-12 BLOOD 81906 [facility] COUNT 7 [facility] COMPLETE INC INC AUTO&[place] [address] [facility] TRANSVAGI 7 [facility] NAL INC INC THYROID 29803 [facility] HORM 7 [facility] UPTK/THYR INC INC OID HORMONE BINDING RATIO BLOOD 56456 [facility] COUNT 7 [facility] COMPLETE INC INC AUTO&AUTO DIFRNTL WBC URNLS DIP 70051 [facility] STEPHANIE 7 PHYSICIAN STICK/TAB S GROUP LET RGNT NON-AUTO W/O MICRSCP COLLECTIO 24588 [facility] N VENOUS 7 [facility] [place] [address] [facility] THYROID 7 [facility] STIMULATI INC INC NG HORMONE TSH URINE 93537 [facility] STEPHANIE 7 PHYSICIAN TEST S GROUP [place] [address] [facility] THYROXINE 7 [facility] TOTAL INC INC URINE 84383 [facility] GUTIERRES 7 [facility] TEST INC [place] [address] [facility] THYROXINE 7 [facility] TOTAL INC INC COLLECTIO 69146 [facility] N VENOUS 7 [facility] BLOOD INC INC VENIPUNCT URE COMPREHEN 71452 [facility] SIVE 7 [facility] [place] [address] [facility] THYROID 7 [facility] STIMULATI INC INC NG HORMONE TSH URNLS DIP 06585 [facility]UTI[facility]ES 7 [facility] STICK/TAB INC INC LET REAGENT AUTO MICROSCOP Y THYROID 39994 [facility] HORM 7 [facility] UPTK/THYR INC INC OID HORMONE BINDING RATIO GONADOTRO 44520 [facility] PIN 7 [facility] CHORIONIC INC INC QUALITATI VE BLOOD 39440 [facility] COUNT 7 [facility] COMPLETE INC INC AUTO&AUTO DIFRNTL WBC BLOOD 68616 [facility] COUNT 6 [facility] COMPLETE INC INC AUTO&AUTO DIFRNTL WBC HOSPITAL G0378 [facility] OBSERVATI 6 [facility] ON INC INC SERVICE PER HOUR COLLECTIO 14598 [facility] N VENOUS 6 [facility] BLOOD INC INC VENIPUNCT URE COMPREHEN 75702 [facility] G[facility] SIVE 6 [facility] METABOLIC INC INC PANEL OBSERVATI 82023 [facility] HEBERT ON CARE 6 CARE [place] DISCHARGE ASSOCIATE S MANAGEMEN T LEVEL III 23001 [facility], PICKLESIM SURG 6 [facility] PATHOLOGY GROSS&LEIGHANN ROSCOPIC EXAM COLLECTIO 27160 [facility] N VENOUS 6 [facility] BLOOD INC INC VENIPUNCT URE HOSPITAL G0378 [facility] G[facility] OBSERVATI 6 [facility] ON INC INC SERVICE PER HOUR BASIC 98926 [facility] METABOLIC 6 [facility] PANEL INC INC CALCIUM TOTAL ANES 61220 [facility] ADALBERTO INTRAPERI 6 ANESTH AYALA TONEAL OF THE UPPER BLUE ABDOMEN W/LAPS NOS BLOOD 88175 [facility] COUNT 6 [facility] COMPLETE INC INC AUTO&AUTO DIFRNTL WBC LAPAROSCO 65667 [facility] PY SURG 6 [facility] CHOLECYST INC INC ECTOMY SBSQ 67448 [facility] HEBERT OBSERVATI 6 CARE [place] ON ASSOCIATE CARE/DAY S [address] [place] [address] [facility] ABDOMINAL 6 [facility] REAL INC INC TIME W/IMAGE LIMITED INITIAL 30833 [facility] HEBERT OBSERVATI 6 [facility] ON ASSOCIATE CARE/DAY S 50 [place] [address] [facility] INFUSION 6 [facility] THERAPY/P INC INC ROPHYLAXI S /DX 1ST TO 1 [facility] G0378 [facility] OBSERVATI 6 [facility] ON INC INC SERVICE PER HOUR COMPREHEN 81789 [facility] SIVE 6 [facility] [place] [address] [facility] G[facility] AMYLASE 6 [facility] INC INC CREATINE 26600 [facility] KINASE MB 6 [facility] FRACTION INC INC ONLY URNLS DIP 98268 [facility] GUTIERRES 6 [facility] STICK/TAB INC INC [place] [address] [facility] TROPONIN 6 [facility] QUANTITAT INC INC BRAYDEN BLOOD 45583 [facility] COUNT 6 [facility] COMPLETE INC INC AUTO&AUTO DIFRNTL WBC ECG 50916 [facility] [place] ROUTINE 6 [facility] W/LEAST P 12 LDS I&R ONLY URINE 01271 BHAVIKWHITNEY NORIEGAON 6 [facility] TEST INC INC VISUAL COLOR CMPRSN METHS CREATINE 57232 BH[facility] BHAVIK KINASE 6 [facility] [address] BHAVIK BHAVIK LIPASE 6 [facility] [place] [address] BHAVIK BHAVIK ABDOMEN & 6 [facility] PELVIS INC INC W/O CONTRAST MATERIAL ECG 23814 BHAVIK GUTIERRES ROUTINE 6 [facility] ECG INC INC W/LEAST 12 LDS TRCG ONLY W/O I&R RADIOLOGI 94260 [facility] C EXAM 6 MEDICAL CHEST 2 IMAGING VIEWS ASS FRONTAL&[place] [address] [facility] ABDOMEN & 6 MEDICAL PELVIS IMAGING W/O ASS CONTRAST MATERIAL ECG 80322 BHAVIK CAMP JR ROUTINE 6 [facility] W/LEAST P 12 LDS I&R ONLY IADNA 36449 MEDICAL MEDICAL TRICHOMON 6 [facility] VAGINALIS AMPLIFIED PROBE TECH IADNA 79410 MEDICAL MEDICAL CHLAMYDIA 6 [facility] TRACHOMAT IS AMPLIFIED PROBE TQ GONADOTRO 70808 LAB VIRI LAB VIRI PIN 6 LIZANDRO LIZANDRO FOLLICLE HOLDINGS HOLDINGS STIMULATI NG HORMONE HANDLG&/O 52919 FAMILY FAMILY R CONVEY 6 CARE CARE OF SPEC ASSOCIATE ASSOCIATE FOR TR S S OFFICE TO LAB CYTP C/V 72306 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 AUTO THIN 6 Y VIRI OF Y VIRI OF LYR LIZANDRO LIZANDRO PREPJ SCR H H MNL RESCR PHYS IADNA 39501 MEDICAL MEDICAL URIEL 6 DIAGNOSTI DIAGNOSTI SPECIES [facility] AMPLIFIED PROBE TQ GONADOTRO 24499 LAB VIRI LAB VIRI PIN 6 LIZANDRO LIZANDRO LUTEINIZI [facility] NG HORMONE COMPREHEN 74191 COMBINED COMBINED SIVE 6 PHYSICIAN PHYSICIAN [place] [address] COMBINED COMBINED THYROID 6 PHYSICIAN PHYSICIAN STIMULATI S [place] S [place] NG HORMONE TSH IADNA 63373 MEDICAL MEDICAL NEISSERIA 6 DIAGNOSTI DIAGNOSTI [facility] GONORRHOE AE AMPLIFIED PROBE TQ EXC B9 86597 [facility]OWN LESION 6 PHYSICIAN MARIZA MRGN XCP S GROUP SK TG T/A/L 0.5 CM/< [place] [address] P&C LABS, BORGES SURG 6 [facility] PATHOLOGY GROSS&LEIGHANN ROSCOPIC EXAM IADNA 29650 P&C LABSHALIMA NEISSERIA 6 [facility] GONORRHOE AE AMPLIFIED PROBE TQ CYTP 49063 P&[facility] LAB[facility] CERVICAL/ 6 [facility] VAGINAL REQ INTERP PHYSICIAN CYTP C/V 96410 P&C [facility] AUTO THIN 6 LLC LYR PREPJ SCR MNL RESCR PHYS IADNA 67001 P&[facility] CHLAMYDIA 6 [facility] TRACHOMAT IS AMPLIFIED PROBE TQ AMBULANCE A0429 [facility] SERVICE 5 AMBULANCE AMBULANCE BLS SERVICE SERVICE EMERGENCY TRANSPORT GROUND A0425 [facility] MILEAGE 5 AMBULANCE AMBULANCE PER SERVICE SERVICE STATUTE MILE URNLS DIP 58783 [facility] GUTIERRES 5 [facility] STICK/TAB INC INC LET REAGENT AUTO MICROSCOP Y BLOOD 13630 BHAVIK GUTIERRES OCCULT 5 [facility] PEROXIDAS INC INC E ACTV QUAL FECES 1-3 SPEC BLOOD 47817 BH[facility] GUTIERRES COUNT 5 [facility] COMPLETE INC INC AUTO&AUTO DIFRNTL WBC URINE 57250 [facility] GUTIERRES 5 [facility] TEST INC INC VISUAL COLOR CMPRSN METHS COMPREHEN 54536 [facility] 5 [facility] METABOLIC INC INC PANEL URINE 58048 [facility] BROWN 5 PHYSICIAN MARIZA TEST S GROUP VISUAL COLOR CMPRSN METHS THERAPEUT 22163 [facility] MARTINEZ IC PX 1/> 5 GAR AREAS CHIROPRAC EACH 15 TIC CENTE MIN EXERCISES CHIROPRAC 19727 [facility] MARTINEZ TIC 5 GAR MANIPULAT CHIROPRAC BRAYDEN [place] TIC CENTE SPINAL 1-2 REGIONS APPL 62890 [facility] MARTINEZ MODALITY 5 GAR 1/> AREAS CHIROPRAC TRACTION TIC CENTE MECHANICA L COMPREHEN 36050 [facility]UTIERRES SIVE 5 [facility] METABOLIC INC INC PANEL CREATINE 15860 [facility] GUTIERRES KINASE MB 5 [facility] FRACTION INC INC ONLY URINE 58082 [facility] GUTIERRES 5 [facility] TEST INC INC VISUAL COLOR CMPRSN METHS CREATINE 56291 [facility] GUTI[facility]ES KINASE 5 [facility] TOTAL INC INC ECG 33858 [facility] GUTIERRES ROUTINE 5 [facility] ECG INC INC W/LEAST 12 LDS TR[place] ONLY W/[place] [address] [facility] GUTIERRES INFUSION 5 [facility] THERAPY/P INC INC ROPHYLAXI S /DX 1ST TO 1 HR URNLS DIP 03526 [facility] GUTIERRES 5 [facility] STICK/TAB INC INC [place] [address] [facility] GUTIERRES TROPONIN 5 [facility] QUANTITAT INC INC BRAYDEN BLOOD 76249 [facility] GUTIERRES COUNT 5 [facility] COMPLETE INC INC AUTO&AUTO DIFRNTL WBC THERAPEUT 12157 [facility] GUTIERRES IC 5 [facility] INJECTION INC INC IV PUSH EACH NEW DRUG ECG 03809 [facility] QUANG ROUTINE 5 [facility] W/LEAST P 12 LDS I&[place] [address] BHAV[facility] GUTIERRES INFUSION 5 [facility] THERAPY/P INC INC ROPHYLAXI S /DX 1ST TO 1 [place] [address] [facility] GUTIERRES INFUSION 5 [facility] THERAPY INC INC PROPHYLAX IS/[place] [address] BHAVIK GUTIERRES ABDOMEN & 5 [facility] PELVIS INC INC W/[place] [address] [facility] GUTIERRES LIPASE 5 [facility] INC INC COMPREHEN 78470 [facility] GUTIERRES SIVE 5 [facility] [address] [facility] GUTIERRES AMYLASE 5 [facility] INC INC URINE 68729 [facility] GUTIERRES 5 [facility] TEST INC INC VISUAL COLOR CMPRSN METHS URNLS DIP 95449 [facility] GUTIERRES 5 [facility] STICK/TAB INC INC LET REAGENT AUTO MICROSCOP Y BLOOD 32335 [facility] GUTIERRES COUNT 5 [facility] COMPLETE INC INC AUTO&AUTO DIFRNTL WBC GLUC BLD 07343 [facility] GUTIERRES GLUC MNTR 5 [facility] DEV INC INC CLEARED FDA SPEC HOME USE IAADI 00757 [facility] GUTEIRRES INFLUENZA 5 [facility] B VIRUS INC INC IAADI 40272 [facility] GUTIERRES INFFLUENZ 5 [facility] A A VIRUS INC INC URNLS DIP 80543 [facility] GUTIERRES 5 [facility] STICK/TAB INC INC LET REAGENT AUTO MICROSCOP Y URINE 83773 [facility] GUTIERRES 5 [facility] TEST INC INC VISUAL COLOR CMPRSN METHS URINE 40859 [facility] BROWN 4 PHYSICIAN MARIZA TEST S GROUP VISUAL COLOR CMPRSN METHS IADNA 84138 [facility]AM[facility] ER JR NELY TRACHOMAT IS AMPLIFIED PROBE TQ IADNA 68472 [facility] NEISSERIA [facility] ER JR NELY GONORRHOE AE AMPLIFIED PROBE TQ CYTP C/V 74400 [facility], [facility] AUTO THIN 4 LLC ER JR NELY LYR PREPJ SCR MNL RESCR PHYS DRUG SCRN 56245 COMBINED COMBINED QUAL BENCH MANAGER 4 PHYSICIAN PHYSICIAN CLASS S LA S LA NONCHROMO TOGRAPHIC EACH DRUG SCR G0434 COMBINED COMBINED NOT 4 PHYSICIAN PHYSICIAN CHROMATOG S LA S LA RAPHIC; ANY NUMBER PT ENC URINE 80244 ANUP Whitmore 4 G G TEST VISUAL COLOR CMPRSN METHS URINE 47670 ANUP [place] 4 G G TEST VISUAL COLOR CMPRSN METHS COMPREHEN 84157 COMBINED COMBINED SIVE 4 PHYSICIAN PHYSICIAN [place] [address] MARCOS MARCOS THYROID 4 R H R H STIMULATI NG HORMONE TSH URINE 19209 MARCOS MARCOS 4 R H R H TEST VISUAL COLOR CMPRSN METHS BLOOD 53623 MARCOS MARCOS COUNT 4 R H R H COMPLETE AUTO&[place] [address] [facility] GUTIERRES INFUSION 3 [facility] THERAPY/P INC INC ROPHYLAXI S /DX 1ST TO 1 HR URNLS DIP 06152 [facility] GUTIERRES 3 [facility] STICK/TAB INC INC LET REAGENT AUTO MICROSCOP Y BLOOD 27795 [facility] GUTIERRES COUNT 3 [facility] COMPLETE INC INC AUTO&AUTO DIFRNTL WBC THERAPEUT 85766 [facility] GUTIERRES IC 3 [facility] INJECTION INC [place] [address] [facility] GUTIERRES LIPASE 3 [facility] INC INC COMPREHEN 62765 [facility] GUTIERRES SIVE 3 [facility] [address] [facility] GUTIERRES AMYLASE 3 [facility] INC INC URINE 43657 [facility] GUTIERRES 3 [facility] TEST INC INC VISUAL COLOR CMPRSN METHS URINE 58692 [facility] BROWN 3 MARIZA MARIZA TEST V[place] [address] [facility] BROWN TRANSVAGI 3 [place] [address] [facility] TRANSVAGI [facility] [place] [address] BROWN STEPHANIE TRANSVAGI 3 MARIZA MARIZA NAL URINE 85344 STEPH[facility]IE BROWN 3 MARIZA MARIZA TEST VISUAL COLOR CMPRSN METHS GONADOTRO 65426 [facility] GUTIERRES PIN 3 [facility] CHORIONIC INC INC QUALITATI VE URINE 24860 ANUP Whitmore 3 G G TEST VISUAL COLOR CMPRSN METHS BLOOD 76787 ANUP [place] COUNT 3 G G COMPLETE AUTO&AUTO DIFRNTL WBC URNLS DIP 49503 [facility] GUTIERRES 3 [facility] STICK/TAB INC INC LET REAGENT AUTO MICROSCOP Y SUSCEPTIB 25530 [facility] GUTIERRES LTY STDY 3 [facility] ANTIMICRB INC INC IAL MICRO/AGA R DILUTJ URINE 55024 [facility] GUTIERRES 3 [facility] TEST INC INC VISUAL COLOR CMPRSN METHS CULTURE 91603 [facility] GUTIERRES BACTERIAL 3 [facility] INC INC QUANTTATI VE COLONY COUNT URINE CULTURE 50399 [facility] GUTIERRES BCT 3 [facility] ISOL&PRSM INC INC PTV ID ISOLATE EA URINE URINE 91699 ANUP Whitmore 3 G G TEST VISUAL COLOR CMPRSN METHS URINE 78530 [facility] GUTIERRES 3 [facility] TEST INC INC VISUAL COLOR CMPRSN METHS CULTURE 98357 [facility] GUTIERRES BACTERIAL 3 [facility] INC INC [place] [address] [facility] GUTIERRES LIPASE 3 [facility] INC INC IAADI 88618 [facility] GUTIERRES INFLUENZA 3 [facility] B VIRUS INC INC IAADI 18962 [facility] GUTIERRES INFFLUENZ 3 [facility] A A VIRUS INC INC INJECTION J2405 [facility] GUTIERRES 3 [facility] ONDANSETR INC INC ON HCL PER 1 MG COMPREHEN 60578 [facility] GUTIERRES SIVE 3 [facility] [address] [facility] GUTIERRES AMYLASE 3 [place] [address] [facility] GUTIERRES INFUSION 3 [facility] THERAPY/P INC INC ROPHYLAXI S /DX 1ST TO 1 HR URNLS DIP 33410 [facility] GUTIERRES 3 [facility] STICK/TAB INC INC LET REAGENT AUTO MICROSCOP Y BLOOD 21972 [facility] GUTIERRES COUNT 3 [facility] COMPLETE INC INC AUTO&AUTO DIFRNTL WBC CULTURE 15457 [facility] GUTIERRES BACTERIAL 3 [facility] BLOOD INC INC AEROBIC W/ID ISOLATES THERAPEUT 14994 [facility] GUTIERRES IC 3 [facility] INJECTION INC INC IV PUSH EACH NEW DRUG RADIOLOGI 07841 JOSE ENRIQUE QUISPE C EXAM 3 MILLA MILLA CHEST 2 VIEWS FRONTAL&[place] [address] [facility] GUTIERRES INFUSION 3 [facility] THERAPY/P INC INC ROPHYLAXI S /DX 1ST TO 1 HR THERAPEUT 29780 [facility] GUTIERRES IC 3 [facility] INJECTION INC INC IV PUSH EACH NEW DRUG URNLS DIP 94169 [facility] GUTIERRES 3 [facility] STICK/TAB INC INC LET REAGENT AUTO MICROSCOP Y BLOOD 88866 [facility] GUTIERRES COUNT 3 [facility] COMPLETE INC INC AUTO&AUTO DIFRNTL WBC INJECTION J2405 [facility] GUTIERRES 3 [facility] ONDANSETR INC INC ON HCL PER 1 MG COMPREHEN 26574 [facility] GUTIERRES SIVE 3 [facility] [place] [address] [facility] NORIEGAON AMYLASE 3 [facility] INC INC URINE 59781 [facility] GUTIERRES 3 [facility] TEST INC INC VISUAL COLOR CMPRSN METHS 3D 35949 [facility] GUTIERRES RENDERING 3 [facility] INC INC W/INTERP& [place] [address] [facility] GUTIERRES LIPASE 3 [facility] INC INC IAADI 61550 [facility] GUTIERRES INFLUENZA 3 [facility] B VIRUS INC INC IAADI 91052 [facility] GUTIERRES INFFLUENZ 3 [facility] [place] [address] [facility] GUTIERRES ABDOMEN & 3 [facility] PELVIS INC INC W/O CONTRAST MATERIAL BLOOD 68568 FAMILY FAMILY COUNT 2 CARE CARE COMPLETE ASSOCIATE ASSOCIATE AUTO&AUTO S S DIFRNTL WBC GONADOTRO 04854 [facility] GUTIERRES PIN 2 [facility] CHORIONIC INC INC QUALITATI VE CULTURE 82618 COMBINED COMBINED BACTERIAL 2 PHYSICIAN PHYSICIAN S LA S LA QUANTTATI VE COLONY COUNT URINE GENERAL 87648 [facility] GUTIERRES HEALTH 2 [facility] PANEL INC INC URNLS DIP 85892 FAMILY FAMILY 2 CARE CARE STICK/TAB ASSOCIATE ASSOCIATE LET RGNT S S NON-AUTO W/O MICRSCP ANTIBODY 17996 [facility] MEDINAOBAC 2 [facility] TER INC INC PYLORI URINE 71497 FAMILY CHRISTIANSON 2 CARE JAM TEST ASSOCIATE VISUAL [place] [address] [facility] GUTIERRES THYROID 2 [facility] STIMULATI [place] [address] [facility] GUTIERRES THYROXINE 2 [facility] TOTAL INC INC BLOOD 05931 ANUP HEBERT J COUNT 2 G G COMPLETE AUTO&AUTO DIFRNTL WBC THYROID 33305 [facility] GUTIERRES HORM 2 [facility] UPTK/THYR INC INC OID HORMONE BINDING RATIO CONTRACEP A4267 [facility] GUTIERRES TIVE 2 [facility] CONDOM MALE EACH CONTRACEP S4993 [facility] GUTIERRES TIVE 2 [facility] CONTROL URINE 93969 [facility] GUTIERRES 2 [facility] C[place] [address] [facility] GUTIERRES ABDOMINAL 2 [facility] REAL INC INC TIME W/IMAGE LIMITED ECG 41774 HALIMA NAVARRO ROUTINE 2 EMERGENCY LEIGHANN ECG SERVICES W/LEAST 12 LDS I&R ONLY URNLS DIP 80485 [facility] GUTIERRES 2 [facility] STICK/TAB INC INC [place] [address] [facility] GUTIERRES TROPONIN 2 [facility] QUANTITAT INC INC BRAYDEN BLOOD 99504 [facility] GUTIERRES COUNT 2 [facility] COMPLETE INC INC AUTO&AUTO DIFRNTL WBC URINE 12116 [facility] GUTIERRES 2 [facility] TEST INC INC VISUAL COLOR CMPRSN METHS CREATINE 63220 [facility] GUTIERRES KINASE 2 [facility] [place] [address] [facility] GUTIERRES LIPASE 2 [facility] INC INC ECG 30816 [facility] GUTIERRES ROUTINE 2 [facility] ECG INC INC W/LEAST 12 LDS TRCG ONLY W/O I&R COMPREHEN 09522 [facility] GUTIERRES SIVE 2 [facility] [place] [address] [facility] GUTIERRES AMYLASE 2 [facility] INC INC CREATINE 75471 [facility] GUTIERRES KINASE MB 2 [facility] FRACTION INC INC ONLY IADNA 77750 [facility] GUTIERRES NEISSERIA [address] [facility] GONORRHOE AE AMPLIFIED PROBE TQ IADNA 97590 [facility] GUTIERRES CHLAMYDIA [address] [facility] TRACHOMAT IS AMPLIFIED PROBE TQ CYTP 28913 PATHOLOGY BORGES CERV/VAG 2 & LANE AUTO THIN CYTOLOGY LAYER LAB PREP MNL SCREEN CYTP 38350 PATHOLOGY BORGES CERVICAL/ [address] L[address] VAGINAL CYTOLOGY REQ LAB INTERP PHYSICIAN INJ J1055 [facility] GUTIERRES MDRXYPRGE 2 [facility] ACTAT CNTRACPT USE 150 MG BLOOD 02756 FAMILY FAMILY COUNT 2 CARE CARE COMPLETE ASSOCIATE ASSOCIATE AUTO&AUTO S S DIFRNTL WBC INJ J1055 [facility] GUTIERRES MDRXYPRGE 1 [facility] ACTAT CNTRACPT USE 150 MG URINE 06698 [facility] GUTIERRES 1 [facility] VISUAL COLOR CMPRSN METHS INJ J1055 [facility] GUTIERRES MDRXYPRGE 1 [facility] ACTAT CNTRACPT USE 150 MG NONEMERGE A0100 [facility] NCY 1 COMMUNITY TRANSPORT ACTION ATION; TAXI IADNA 15648 MEDICAL MEDICAL CHLAMYDIA 1 [facility] TRACHOMAT IS AMPLIFIED PROBE TQ URINE 45642 FAMILY MULBERRY 1 CARE [facility]AR[facility] TEST ASSOCIATE VISUAL S COLOR CMPRSN METHS IADNA 23727 MEDICAL MEDICAL GARDNEREL 1 DIAGNOSTI DIAGNOSTI LA C LAB LLC [facility] LAB LLC VAGINALIS AMPLIFIED PROBE TQ IADNA 51584 MEDICAL MEDICAL URIEL 1 DIAGNOSTI DIAGNOSTI SPECIES [facility] AMPLIFIED PROBE TQ IADNA NOS 74055 MEDICAL MEDICAL 1 DIAGNOSTI DIAGNOSTI AMPLIFIED C LAB LLC C LAB LLC PROBE TQ EACH ORGANISM IADNA 66802 MEDICAL MEDICAL NEISSERIA 1 DIAGNOSTI DIAGNOSTI [facility] GONORRHOE AE AMPLIFIED PROBE TQ BLOOD 99049 FAMILY FAMILY COUNT 1 CARE CARE COMPLETE ASSOCIATE ASSOCIATE AUTO&AUTO S S DIFRNTL WBC CONTRACEP A4267 BH[facility]IK GUTIERRES TIVE 1 [facility] CONDOM MALE EACH INJ J1055 [facility] GUTIERRES MDRXYPRGE 1 [facility] ACTAT CNTRACPT USE 150 MG IADNA 06910 BH[facility] GUTIERRES NEISSERIA 1 [facility]ENTER GONORRHOE AE AMPLIFIED PROBE TQ IADNA 19222 [facility] GUTIERRES CHLAMYDIA 1 [facility] TRACHOMAT IS AMPLIFIED PROBE TQ CYTP 45994 PATHOLOGY PATHOLOGY CERV/VAG 1 & & AUTO THIN CYTOLOGY CYTOLOGY LAYER LAB LAB PREP MNL SCREEN INJ J1055 BH[facility] NORIEGAON MDRXYPRGE 1 [facility] ACTAT CNTRACPT USE 150 MG NONEMERGE A0100 [facility] CAB NCY 1 COMMUNITY TRANSPORT ACTION ATION; TAXI INJ J1055 [facility] GUTIERRES MDRXYPRGE 0 [facility] ACTAT CNTRACPT USE 150 MG CYTP 21441 PATHOLOGY PATHOLOGY CERV/VAG 0 & & AUTO THIN CYTOLOGY CYTOLOGY LAYER LAB LAB PREP MNL SCREEN INJ J1055 [facility] GUTIERRES MDRXYPRGE 0 [facility] CNTRACPT USE 150 MG INJ J1055 [facility] GUTIERRES MDRXYPRGE 0 [facility] CNTRACPT USE 150 MG INJ J1055 [facility] GUTIERRES MDRXYPRGE 0 [facility] CNTRACPT USE 150 MG CONTRACEP A4267 BH[facility]IK GUTIERRES TIVE 0 [facility] CONDOM MALE EACH IADNA 06525 BH[facility] GUTIERRES CHLAMYDIA [address] [facility] TRACHOMAT IS AMPLIFIED PROBE TQ CYTP 49165 PATHOLOGY PATHOLOGY CERV/VAG 0 & & AUTO THIN CYTOLOGY CYTOLOGY LAYER LAB LAB PREP MNL SCREEN CYTP 12930 PATHOLOGY PATHOLOGY CERVICAL/ 0 & & VAGINAL CYTOLOGY CYTOLOGY REQ LAB LAB INTERP PHYSICIAN IADNA 56637 BH[facility]IK GUTIERRES NEISSERIA 0 [facility] GONORRHOE AE AMPLIFIED PROBE TQ SIMPLE 12104 HALIMA MORENO REPAIR 0 EMERGENCY III, SCALP/NEC SERVICES OMAIRA K/AX/JULIANNE T/TRUNK ASSOCIATE 2.5CM/< S CLOSURE 8659 [facility] GUTIERRES SKIN&SUBC 0 [facility] UTANEOUS INC INC TISSUE OTHER SITES BLOOD 49540 [facility] GUTIERRES COUNT 0 [facility] COMPLETE INC INC AUTO&AUTO DIFRNTL WBC URNLS DIP 71471 [facility] GUTIERRES 0 [facility] STICK/TAB INC INC LET REAGENT AUTO MICROSCOP Y URINE 33138 [facility] GUTIERRES 0 [facility] TEST INC INC VISUAL COLOR CMPRSN METHS COMPREHEN 68931 [facility] GUTIERRES SIVE 0 [facility] [place] [address] [facility] GUTIERRES AMYLASE 0 [place] [address] [facility] GUTIERRES LIPASE 0 [facility] INC INC TYMPANOME 33305 ELIAS ELIAS, TRY 9 [place] ACOUSTIC 89062 JADA ELIAS, REFLEX 9 [place] THRESHOLD COMPRE 81103 JADA ELIAS, AUDIOMETR 9 [place] Y THRESHOLD EVAL SP RECOGNIJ INJ J1055 [facility] MDRXYPRGE 9 [facility] ACTAT BANK ACCT CNTRACPT USE 150 MG BLOOD 49458 FAMILY MULBERRY, COUNT 9 CARE OSIRIS T COMPLETE ASSOCIATE AUTO&[place] [address] [place] QUISPEVAGI 9 [place]ICAL [place] [address] BH[facility]IK GUTIERRES ABDOMINAL 9 [facility] REAL INC INC TIME W/IMAGE LIMITED ANTIBODY 23168 COMBINED COMBINED HELICOBAC [address] S LAB S LAB PYLORI COMPREHEN 71680 COMBINED COMBINED SIVE 9 PHYSICIAN PHYSICIAN METABOL[place] [address] COMBINED COMBINED AMYLASE 9 PHYSICIAN PHYSICIAN S LAB S LAB 3D 66698 [facility] GUTIERRES RENDERING 9 [facility] W/INTERP INC INC & [place] [address] [place] AL[place]INA, HEAD/BRAI 9 MEDICAL KIM P N W/O IMAGING CONTRAST ASSOCIATE MATERIAL S 3D 86750 [place] AL[place], RENDERING 9 MEDICAL KIM P IMAGING W/INTERP& [place]OCI[place] [address] BH[facility]IK GUTIERRES MAXILLOFA 9 [facility] CIAL W/O INC INC CONTRAST MATERIAL URNLS DIP 78496 [facility] GUTIERRES 9 [facility] STICK/TAB INC INC LET REAGENT AUTO MICROSCOP Y URINE 98597 [facility] GUTIERRES 9 [facility] TEST INC INC VISUAL COLOR CMPRSN METHS INJ J1055 [facility] MDRXYPRGE 9 [facility] ACTAT BANK ACCT CNTRACPT USE 150 MG CONTRACEP A4267 [facility] TIVE 9 [facility] CONDOM BANK ACCT MALE EACH BLOOD 62508 FAMILY MARCOS, COUNT 9 CARE R LISETH COMPLETE ASSOCIATE AUTO&AUTO S DIFRNTL WBC FRAMES V2020 SALTY WISE, PURCHASES 9 [facility] MELANIE Vasquez 1 VISN V2103 SALTY WISE, PLANO 9 VISION MELANIE M TO+/-4.00 D SPHER 0.12-2.00 D CYL EA FITTING 43020 SALTY WISE, SPECTACLE 9 VISION MELANIE Vasquez S XCPT APHAKIA MONOFOCAL OPHTH 70208 SALTY WISE, MEDICAL 9 VISION MELANIE M XM&EVAL COMPRHNSV ESTAB PT 1/> URINE 85317 [facility]/CO VIVIAN 9 [facility] CENTRAL DEPT VISUAL BANK ACCT COLOR CMPRSN METHS INJ J1055 [facility]/CO VIVIAN MDRXYPRGE 9 [facility] STRO CENTRAL DEPT ACTAT BANK ACCT CNTRACPT USE 150 MG URINE 83450 BH[facility]IK BHAVIK 9 [facility] TEST INC INC VISUAL COLOR CMPRSN METHS IAADI 94890 BH[facility]IK GUTIERRES INFLUENZA 9 [facility] B VIRUS INC INC IAADI 70163 BH[facility]IK GUTIERRES INFFLUENZ 9 [facility] [place] [address] BHAVIK GUTIERRES STREPTOCO 9 [facility] CCUS INC INC GROUP A COMPREHEN 32181 BH[facility]IK GUTIERRES SIVE 9 [facility] METABOLIC INC INC PANEL URNLS DIP 37695 BHAVIKWHITNYE GUTIERRES 9 [facility] STICK/TAB INC INC LET REAGENT AUTO MICROSCOP Y BLOOD 58229 BH[facility]IK GUTIERRES COUNT 9 [facility] COMPLETE INC INC AUTO&AUTO DIFRNTL WBC CYTP 74630 [facility] CERV/VAG 9 [facility] AUTO THIN [facility] LAYER BANK ACCT PREP MNL SCREEN IADNA 44840 [facility]/CO BHAVIK CHLAMYDIA 9 [facility] TRACHOMAT BANK ACCT IS AMPLIFIED PROBE TQ INJ J1055 [facility] MDRXYPRGE 9 [facility] ACTAT BANK ACCT CNTRACPT USE 150 MG INJ J1055 [facility]IK MDRXYPRGE 9 [facility] ACTAT BANK ACCT CNTRACPT USE 150 MG INJ J1055 [facility]IK MDRXYPRGE 8 [facility] ACTAT BANK ACCT CNTRACPT USE 150 MG INJ J1055 [facility]IK MDRXYPRGE 8 [facility] ACTAT BANK ACCT CNTRACPT USE 150 MG CONTRACEP A4267 [facility] BHAVIK TIVE 8 [facility] CONDOM BANK ACCT MALE EACH INJ J1055 [facility]IK MDRXYPRGE 8 [facility] ACTAT BANK ACCT CNTRACPT USE 150 MG Encounters Encounter Start End Date Code Location Performer Type Date [facility] - 7 7 [facility] BHAVIK [facility] 7 7 [facility] OUT[facility] T OFFICE 72784 [facility] STEPHANIE [facility] 7 7 PHYSICIAN T VISIT S GROUP 25 MINUTES HOSPITAL [facility] - 7 7 [facility] OUT[facility] BHAVIK [facility] 7 7 [facility] OUTPATIEN [facility] T EMERGENCY 41423 [facility] 7 7 [facility] T VISIT LIMITED/M INOR PROB EMERGENCY 35720 MARIAH HERMAN 7 7 PHYSICIAN U DEPARTMEN S, PLLC T VISIT HIGH/URGE NT SEVERITY OFFICE 64855 [facility] MELANIE OUTPATIEN 6 6 PHYSICIAN T VISIT S GROUP 15 MINUTES OFFICE 52602 FAMILY ANUP OUTPATIEN 6 6 CARE [place] T VISIT ASSOCIATE 15 S MINUTES OFFICE 15421 [facility] KARRIE TOD CONSULTAT 6 6 PHYSICIAN ION S GROUP NEW/ESTAB PATIENT 30 MIN [facility] - 6 6 [facility] OUTPATIEN INC T EMERGENCY 39717 [facility] DEPT 6 6 [facility] VISIT INC HIGH SEVERITY& THREAT FUNCJ EMERGENCY 61471 MARIAH NAVARRO DEPT 6 6 PHYSICIAN LEIGHANN VISIT S, PLLC HIGH SEVERITY& THREAT FUNCJ PERIODIC 64436 [facility] PREVENTIV 6 6 PHYSICIAN E MED EST S GROUP PATIENT 18-39 YRS EMERGENCY 43977 MARIAH HERMAN 5 5 PHYSICIAN U ERNA DEPARTMEN S, [facility] T VISIT MODERATE SEVERITY OFFICE 80989 FAMILY MARCOS OUTPATIEN 5 5 CARE R H T VISIT ASSOCIATE S MINUTES [facility] BHAVIK - 5 5 [facility]IEN [facility] T EMERGENCY 94567 MARIAH NAVARRO 5 5 PHYSICIAN [facility] DEPARTMEN S, [facility] T VISIT HIGH/URGE NT SEVERITY EMERGENCY 93806 [facility] 5 5 [facility] T VISIT MODERATE SEVERITY OFFICE 73945 [facility] STEPHANIE OUTPATIEN 5 5 PHYSICIAN MARIZA T VISIT S GROUP 15 MINUTES OFFICE 38886 [facility] MARTINEZ OUTPATIEN 5 5 [facility] T VISIT CHIROPRAC 15 TIC CENTE MINUTES [facility] BHAVIK [facility] 5 5 [facility] OUTPATIEN [facility] T EMERGENCY 73614 MARIAH NAVARRO 5 5 PHYSICIAN [facility] DEPARTMEN S, [facility] T VISIT HIGH/URGE NT SEVERITY OFFICE 66042 [facility] SLAUGHTER OUTPATIPAUL 5 5 [facility]NOTE 3] VISIT [facility] 15 MINUTES HOSPITAL [facility] - 5 5 [facility] OUTPATIEN [facility] T EMERGENCY 92273 BHAVIK NAVARRO 5 5 [facility] T VISIT P MODERATE SEVERITY EMERGENCY 74161 [facility]AV[facility] [place] 5 5 [facility] T VISIT P MODERATE SEVERITY HOSPITAL [facility] - 5 5 [facility] OUT[facility]IEN INC T EMERGENCY 13822 [facility] LOW/MODER SEVERITY OFFICE 31684 BHAVIK WEBB OUTPATIEN [address] MINUTES OFFICE 90738 [facility] BROWN OUTPATIEN 4 4 PHYSICIAN MARIZA T VISIT S GROUP [address] [facility] 4 4 [facility] EMERGENCY T VISIT PHYS HIGH/URGE NT SEVERITY EMERGENCY 21684 [facility] 4 4 [facility] INC T VISIT LOW/MODER SEVERITY HOSPITAL [facility] - 4 4 [facility] OUTPATIEN INC T EMERGENCY 87615 [facility] 4 4 [facility] LOW/MODER [facility]VERITY [facility] - 4 4 [facility] OUTPATIEN INC T OFFICE 50054 [facility] [place] OUTPATIEN 4 4 G G T VISIT 25 MINUTES OFFICE 87034 [facility] [place] OUTPATIEN 4 4 G G T VISIT 15 MINUTES EMERGENCY 53289 MARIA ELENA GARCÍA 4 4 DEPARTMEN T VISIT MODERATE SEVERITY [facility]OSP[facility] - 4 4 [facility] INC T OFFICE 32200 MARCOS MARCOS OUTPATIEN 4 4 R H R H T VISIT 15 MINUTES EMERGENCY 93904 [facility] MORNEO 4 4 III AMITA III [facility] T VISIT HIGH/URGE NT SEVERITY HOSPITAL BHAVIK - 4 4 [facility] OUTPATI[facility] INC T EMERGENCY 03479 [facility] 4 4 [facility] DEPARTMEN INC T VISIT LOW/MODER SEVERITY EMERGENCY 56584 [facility] 3 3 [facility] DEPARTMEN INC T VISIT MODERATE SEVERITY [facility]OSPITAL [facility] - 3 3 [facility] OUTPATIEN INC T EMERGENCY 02388 MELANIE MELANIE 3 3 [facility] DEPARTMEN T VISIT HIGH/URGE NT SEVERITY OFFICE 68737 STEPHANIE BROWN OUTPATIEN 3 3 MARIZA MARIZA T VISIT 15 MINUTES OFFICE 05224 STEPHANIE BROWN OUTPATIEN 3 3 MARIZA MARIZA T NEW 45 MINUTES HOSPITAL [facility] - 3 3 [facility] OUTPATI[facility] INC T OFFICE 08815 ANUP CARRERAPATIEN 3 3 G G T VISIT 15 MINUTES OFFICE 83042 ANUP CARRERAPATIEN 3 3 G G T VISIT 15 MINUTES OFFICE 68260 [facility] [place] OUTPATIEN 3 3 G G T VISIT 15 MINUTES OFFICE 77216 ANUP CARRERAPATIEN 3 3 G T VISIT 25 MINUTES EMERGENCY 06702 [facility] T VISIT [facility]/M INOR PROB [facility] - 3 3 [facility] INC T EMERGENCY 68489 MELANIE NAVARRO 3 3 [facility] DEPARTMEN T VISIT HIGH/URGE NT SEVERITY OFFICE 53324 ANUP CARRERAPATIEN 3 3 G G T VISIT 15 MINUTES OFFICE 08652 ANUP Whitmore OUTPATIEN 3 3 G G T VISIT 25 MINUTES EMERGENCY 95682 JOSH MORENO DEPT 3 3 III AMITA III AMITA VISIT HIGH SEVERITY& THREAT [facility] - 3 3 [facility] OUT[facility] T EMERGENCY 79032 [facility] 3 3 [facility] T VISIT MODERATE SEVERITY [facility]OSP[facility] - [facility] 3 [facility] T EMERGENCY 82628 [facility] 3 3 [facility] T VISIT HIGH/URGE NT SEVERITY EMERGENCY 98911 MELANIE NAVARRO DEPT 3 3 [facility]NAN LEIGHANN VISIT HIGH SEVERITY& THREAT FUNCJ OFFICE 95519 FAMILY OUTPATIEN 2 2 CARE T VISIT ASSOCIATE 15 S MINUTES OFFICE 10917 [facility] GUTIERRES OUTPATIEN 2 2 [facility] 10 MINUTES OFFICE 93804 FAMILY OUTPATIEN 2 2 CARE T VISIT ASSOCIATE 15 S MINUTES HOSPITAL [facility] - 2 2 [facility] T OFFICE 89115 [facility] OUTPATIEN 2 2 [facility] 15 MINUTES OFFICE 56218 ANUP Whitmore OUTPATIEN 2 2 G G T VISIT 15 MINUTES HOSPITAL [facility] - 2 2 [facility] T OFFICE 96986 [facility] OUTPATIEN 2 2 [facility] 10 MINUTES HOSPITAL [facility] - 2 2 [facility] OUT[facility] INC T OFFICE 32682 WILEY JAMA OUTPATIEN 2 2 VIN VIN T VISIT 15 MINUTES EMERGENCY 63534 HALIMA NAVARRO DEPT 2 2 EMERGENCY LEIGHANN VISIT SERVICES HIGH SEVERITY& THREAT [facility] - 2 2 [facility] OUT[facility] T EMERGENCY 98640 [facility] 2 2 [facility] DEPART[facility] INC T VISIT MODERATE SEVERITY OFFICE 19933 ANUP Whitmore OUTPATIEN 2 2 T VISIT 15 MINUTES [facility] 02477 [facility] GUTIERRES PREVENTIV 2 2 [facility] PATIENT 18-39 YRS OFFICE 04523 ANUP Whitmore OUTPATIEN 2 2 T VISIT 25 MINUTES OFFICE 57324 [facility] GUTIERRES OUTPATIEN 2 2 [facility] 10 MINUTES OFFICE 06007 FAMILY MARCOS OUTPATIEN 2 2 CARE R H T VISIT ASSOCIATE 15 S MINUTES OFFICE 75304 [facility] GUTIERRES OUTPATIEN 1 1 [facility] 10 MINUTES OFFICE 52514 [facility] GUTIERRES OUTPATIEN 1 1 [facility] 15 MINUTES OFFICE 55036 [facility] GUTIERRES OUTPATIEN 1 1 [facility] 10 MINUTES OFFICE 96434 FAMILY ANUP Whitmore OUTPATIEN 1 1 CARE T VISIT ASSOCIATE 15 S MINUTES OFFICE 32544 FAMILY LIZZIE OUTPATIEN 1 1 [facility] T VISIT ASSOCIATE 15 S MINUTES PERIODIC 25818 [facility] GUTIERRES PREVENTIV 1 1 [facility] PATIENT 18-39 YRS OFFICE 57589 [facility] GUTIERRES OUTPATIEN 1 1 [facility] 10 MINUTES OFFICE 68036 [facility] GUTIERRES OUTPATIEN 0 0 [facility] 10 MINUTES OFFICE 36553 [facility] GUTIERRES OUTPATIEN 0 0 [facility] 15 MINUTES OFFICE 47085 [facility] GUTIERRES OUTPATIEN 0 0 [facility] 15 MINUTES OFFICE 52359 [facility] GUTIERRES OUTPATIEN 0 0 [facility] 10 MINUTES OFFICE 97398 Myranda CAMPOS OUTPATIEN 0 0 CARE G T VISIT ASSOCIATE 15 S MINUTES OFFICE 29390 [facility] GUTIERRES OUTPATIEN 0 0 [facility] T VISIT [facility] 15 MINUTES OFFICE 78629 Myranda CAMPOS 0 0 CARE G T VISIT ASSOCIATE 15 S MINUTES PERIODIC 66544 [facility] GUTIERRES PREVENTIV 0 0 [facility] PATIENT 18-39 YRS EMERGENCY 68633 HALIMA MORENO 0 0 EMERGENCY III, DEPARTMEN SERVICES OMAIRA T VISIT HIGH/URGE ASSOCIATE NT S SEVERITY EMERGENCY 30651 [facility] 0 0 [facility] T VISIT MODERATE SEVERITY [facility] 0 [facility] T [facility] 0 0 [facility] INC T EMERGENCY 18030 [facility] 0 0 [facility] DEPART[facility] INC T VISIT HIGH/URGE NT SEVERITY OFFICE 45179 JADA ELIAS OUTPATIEN 9 9 DUGLAS Cruz ARDON G T VISIT 15 MINUTES OFFICE 47308 JADA ELIAS OUTPATIEN 9 9 DUGLAS Arroyo DUGLAS G T NEW 20 MINUTES OFFICE 97734 Myranda CAMPOS 9 9 CARE G T VISIT ASSOCIATE 15 S MINUTES OFFICE 78585 [facility] OUTPATIEN 9 9 HEALTH CO HEALTH T VISIT [facility] 10 BANK ACCT MINUTES OFFICE 83308 JOHN MISTRY 9 9 CARE OSIRIS T T VISIT ASSOCIATE 25 S MINUTES OFFICE 35036 Myranda CAMPOS 9 9 CARE G T VISIT ASSOCIATE 15 S MINUTES HOSPITAL [facility] - 9 9 [facility] OUT[facility]EN INC T OFFICE 80412 Myranda CAMPOS 9 9 CARE G T VISIT ASSOCIATE 25 S MINUTES HOSPITAL [facility] - 9 9 [facility] OUTPAT[facility]EN INC T EMERGENCY 02696 [facility] 9 9 [facility] DEPARTMEN INC T VISIT LOW/MODER SEVERITY EMERGENCY 67651 HALIMA NAVARRO, DEPT 9 9 EMERGENCY [facility] VISIT SERVICES HIGH SEVERITY& ASSOCIATE THREAT S FUNCJ EMERGENCY 67330 HALIMA NAVARRO, 9 9 EMERGENCY [facility] SERVICES T VISIT HIGH/URGE ASSOCIATE NT S SEVERITY HOSPITAL [facility] - 9 9 [facility] INC T OFFICE 33271 [facility]PAT[facility] 9 9 [facility] 10 BANK ACCT MINUTES OFFICE 09198 [facility] 9 CARE R LISETH T VISIT ASSOCIATE 15 S MINUTES OFFICE 56289 [facility] 9 [facility]ALTH CO HEALTH T CENTRAL DEPT MINUTES BANK ACCT EMERGENCY 90389 HALIMA NAVARRO, 9 9 EMERGENCY [facility] SERVICES T VISIT HIGH/URGE ASSOCIATE NT S SEVERITY EMERGENCY 91699 [facility] 9 9 [facility] DEPART[facility] INC T VISIT MODERATE SEVERITY [facility]OSP[facility] - 9 9 [facility] OUTPATI[facility] INC T PERIODIC 94552 [facility] PREVENTIV 9 9 HEALTH [facility] E MED EST [facility] [place] PATIENT BANK ACCT 18-39 YRS HOSPITAL [facility] - 9 9 [facility] OUT[facility] INC T EMERGENCY 27583 DONAL NAVARRO, 9 9 [facility] T VISIT ON MODERATE SEVERITY EMERGENCY 11632 [facility] 9 9 [facility] DEPARTMEN INC T VISIT LIMITED/M INOR PROB OFFICE 93736 [facility] OUTPATIPAUL 9 9 [facility] 10 BANK ACCT MINUTES OFFICE 85586 [facility] OUTPATIEN 8 8 [facility] CO HEALTH T VISIT [facility] 10 BANK ACCT MINUTES HOSPITAL [facility] - 8 8 [facility] OUTPATIEN INC T EMERGENCY 81712 [facility] 8 8 [facility] DEPARTMEN INC T VISIT LIMITED/M INOR PROB OFFICE 00032 [facility] OUTPATIEN 8 8 [facility] T VISIT [facility] 10 BANK ACCT MINUTES OFFICE 17126 [facility] OUTPATIEN 8 8 HEALTH CO HEALTH T VISIT [facility] 10 BANK ACCT MINUTES OFFICE 48305 [facility] OUTPATIEN 8 8 HEALTH CO HEALTH T VISIT [facility] 10 BANK ACCT MINUTES
--- OUTSIDE RECORDS SUMMARY | 2017-06-12 20:58 | External Medical Summary Rpt | CCD ---
Author Author , MARY Parra MARY Address Unknown Phone [email or web address] Care Team Providers Care Supervisor Cutting And Boning Name Role Phone CHATO, CHATO Unavailable Unavailable BESSHERIN BRIDGER, BESSON Unavailable Unavailable BRIDGER [facility] Unavailable Unavailable SERVICE, [facility] Unavailable Unavailable SERVICE, [facility] [place] [facility], [facility] Unavailable Unavailable BROWN, BROWN Unavailable [...] J, ANUP J Unavailable Unavailable ANUP J, ANPU J Unavailable Unavailable NAUP Whitmore G, ANUP J Unavailable Unavailable G [...] VIN JAMA VIN, JAMA Unavailable Unavailable VIN [facility] Unavailable Unavailable [facility], [facility] Unavailable Unavailable [facility], [facility] Unavailable Unavailable INC, [facility] Unavailable Unavailable [facility]OSPITAL, [facility] Unavailable Unavailable HOSPITAL P, [facility], Unavailable Unavailable [facility], Unavailable Unavailable [facility] Un[facility] Un[facility], [facility] VIRI LIZANDRO Unavailable [...] OSIRIS T, Unavailable Unavailable MULBERRY, OSIRIS T [facility], [facility] MARCOS R H, Unavailable Unavailable MARCOS R H MARCOS R H, Unavailable Unavailable MARCOS R H MARCOSDorinda, Unavailable Unavailable MARCOS, R LISETH CHRISTIANSON JAM, CHRISTIANSON Unavailable Unavailable JAM [facility], [facility] Unavailable Unavailable LABS, [facility], Unavailable Unavailable [facility], [facility] Unavailable Unavailable LAB, [facility] Unavailable Unavailable LAB, [facility] PICKLESIMER JR NELY, Unavailable Unavailable [facility] NELY KARRIE TOD, KARRIE TOD Unavailable Unavailable [id number], Unavailable Unavailable [id number] Unavailable Unavailable [id number] [address] [id number], [facility] [address] # [id number] MELANIE WISE, Unavailable Unavailable MELANIE WISE, TRACEY Unavailable Unavailable ADRIANA SOTINGEANU, Unavailable Unavailable SOTINGEANU SOTINGEANU ERNA, Unavailable Unavailable SOTINGEANU ERNA [facility] Unavailable Unavailable [facility], [facility] ADALBERTO AYALA, ADALBERTO Unavailable Unavailable AYALA [facility] Unavailable Unavailable #591, [facility] # Unavailable Unavailable [id number], [facility] # [id number] WEHRMAN III AMITA, Unavailable Unavailable WEHRMAN III AMITA WEHRMAN III AMITA, Unavailable Unavailable WEHRMAN III AMITA WEHRMAN III, OMAIRA, Unavailable Unavailable WELE IIIOMAIRA, MARIA ELENA GARCÍA Unavailable Unavailable MARIA ELENA MCDONALD Unavailable Unavailable [facility] Unavailable Unavailable [facility], [facility] Purpose Continuity of Care Document - 11-01-2007 through 2016 Problems Code Diagnosis DOS Provider Status R5383 OTHER 04-06-2017 [facility] [id number] UNSPECIFIED 10-14-2016 [facility] CYST LEFT IMAGING ASS SIDE N926 IRREGULAR 10-14-2016 [facility] N [facility] UNSPECIFIED N938 OTHER SPEC 10-14-2016 [place] ABNORMAL MEDICAL UTERINE & IMAGING ASS VAGINAL BLEEDING N920 EXCESS & 09-24-2016 [facility] FREQUENT PHYSICIANS MENSTRUATIO GROUP N W/REGULAR CYCLE R5382 CHRONIC 09-24-2016 [facility] UNSPECIFIED INC R635 ABNORMAL 09-24-2016 [facility] WE[facility]IN [facility] A084 VIRAL 08-31-2016 [facility] INTESTINAL [facility] INFECTION INC UNSPECIFIED K529 NONINFECTIV 08-31-2016 [facility] GA[facility]OENTER [facility] ITIS & COLITIS UNS B55413 PERSONAL 08-31-2016 [facility] HISTORY OF [facility]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 INC DEPENDENCE H6983 OTHER SPEC 07-22-2016 [facility] DISORDERS PHYSICIANS EUSTACHIAN GROUP TUBE BILAT J45156 CELLULITIS 07-22-2016 [facility] OF HEAD ANY PHYSICIANS PART GROUP EXCEPT [...] ASSOCIATES CHOLECYST W/O OBSTRUCTION K810 ACUTE 03-05-2016 [facility] CHOLECYSTIT PHYSICIANS IS GROUP R1013 EPIGASTRIC 03-05-2016 [facility] PAIN PHYSICIANS GROUP R112 NAUSEA WITH 03-05-2016 [facility] VOMITING PHYSICIANS UNSPECIFIED GROUP K8020 CALCULUS GB 03-04-2016 [facility] W/O PHYSICIANS, CHOLECYSTIT PLLC IS W/O OBSTRUCTION K828 OTHER 03-04-2016 [place] SPECIFIED MEDICAL DISEASES OF IMAGING ASS GALLBLADDER R1110 VOMITING 03-04-2016 [facility]NSPECIFIED [facility]ICAL [facility]ING [facility] R079 CHEST PAIN 02-20-2016 [facility]NSPECIFIED [facility]ICAL IM[facility]ING ASS R1031 RIGHT LOWER 02-19-2016 [facility] E039 HYPOTHYROID 01-04-2016 [facility] ISM [facility]IC[facility] UNSPECIFIED LA I10 ESSENTIAL 01-04-2016 [facility] PRIMARY [facility]YS[facility]ANS HYPERTENSIO LA N D2271 MELANOCYTIC 10-30-2015 [facility] NEVI RIGHT LLC LOWER LIMB INCLUDING HIP D2370 OTHER 10-30-2015 [facility] BENIGN PHYSICIANS NEOPLASM GROUP SKIN UNS LOW LIMB INCL HIP R52 PAIN 10-30-2015 [facility] UNSPECIFIED PHYSICIANS GROUP E88742 ENCOUNTER 10-02-2015 [facility], PROSTHODONTIST EXAM LLC GENERAL RTN W/O ABNORMAL FIND Z113 ENCOUNTER 10-02-2015 [facility], SCREEN LLC INFECTIONS SEXL MODE TRANSMISSN G73097 PAIN IN 08-25-2015 [facility] M791 MYALGIA 08-25-2015 [facility]C K649 UNSPECIFIED 07-20-2015 [facility] HEMORRHOIDS K644 RESIDUAL 07-14-2015 [facility]IDA [facility] SKIN TAGS INC N925 OTHER 07-02-2015 [facility] SPECIFIED PHYSICIANS IRREGULAR GROUP MENSTRUATIO N M9900 SEGMENTAL 06-19-2015 [facility] DYSFUNCTION OF HEAD REGION M9902 SEGMENTAL & 06-19-2015 [facility] DYSFUNCTION C CENTE THORACIC REGION M9903 SEGMENTAL & 06-19-2015 [facility] DYSFUNCTION C CENTE OF LUMBAR REGION 2768 HYPOPOTASSE 03-07-2015 [facility] P 83677 ABDOMINAL 03-07-2015 [facility] PAIN, PHYSICIANS, EPIGASTRIC PLLC V1582 PERS HX 03-07-2015 [facility] TOBACCO USE [facility] 65821 ACUT 02-27-2015 [facility] SUPPRATV [facility] MEDIA W/O SPONT RUP EARDRUM 14624 NAUSEA WITH 12-30-2014 [facility] 49982 DIARRHEA 12-30-2014 [facility] 5589 OTH&UNSPEC 12-29-2014 [facility] P GASTROENTER ITIS&COLITI S 06603 VOMITING 11-08-2014 [facility] P 4789 OTHER&UNSPE 09-01-2014 [facility] RESPIRATORY TRACT 6160 CERVICITIS 07-07-2014 [facility], AND LLC ENDOCERVICI TIS V221 SUPERVISION 07-07-2014 [facility], OF OTHER LLC NORMAL V7242 07-07-2014 [facility] EXAMINATION PHYSICIANS OR TEST GROUP POSITIVE RESULT V745 SCREENING 07-07-2014 [facility], EXAMINATION LLC FOR VENEREAL DISEASE 18763 BN&JNT D/O 06-22-2014 [facility] BACK N EMERGENCY PELVIS&LW PHYS LIMBS ANTEPARTUM 7242 LUMBAGO 06-22-2014 [facility] EMERGENCY PHYS 7871 HEARTBURN 05-18-2014 [facility] 78594 ABDOMINAL 05-18-2014 [facility] PAIN RIGHT [facility] UPPER INC [facility] V5869 LONG-TERM 03-08-2014 [facility] (CURRENT) PHYSICIANS USE OF LA OTHER MEDICATIONS 5368 DYSPEPSIA&O 02-01-2014 ANUP Arroyo THER SPEC DISORDERS FUNCTION STOMACH 6269 UNS D/O 02-01-2014 ANUP Arroyo MENSTRUATIO N&OTH ABN BLEED FE GNT TRACT 17665 UNSPECIFIED 11-25-2013 [facility] 7873 FLATULENCE 11-25-2013 MARIA ELENA GARCÍA ERUCTATION AND GAS PAIN 51353 ABDOMINAL/P 11-25-2013 [facility] ELVIC [facility] SWELLING INC MASS/LUMP UNSPEC SITE 6264 IRREGULAR 11-23-2013 [place] [address] NAUSEA 10-28-2013 WEHRMAN III ALONE AMITA 4660 ACUTE 2013 [facility]IS [facility] 35010 ACUTE 2013 [facility] GASTRITIS [facility] WITHOUT INC MENTION OF HEMORRHAGE 31344 UNS 2013 MELANIE LAWTON GASTRITIS&G ASTRODUODIT IS W/O MENTION HEMORR 6201 CORPUS 07-04-2013 STEPHANIE MARIZA LUTEUM CYST OR HEMATOMA 6259 UNSPEC 07-04-2013 STEPH[facility]IE DAWKINS SYMPTOM ASSOC W/FEMALE GENITAL ORGANS 80948 ABDOMINAL 05-19-2013 [facility] [place] 6253 DYSMENORRHE 04-12-2013 STEPHANIE MARIZA A 6260 ABSENCE OF 04-12-2013 [facility] MENSTRUATIO [facility] N INC 5990 URINARY 12-23-2012 [facility] TRACT [facility] INFECTION INC SITE NOT SPECIFIED 486 PNEUMONIA, 10-20-2012 WEHRMAN III ORGANISM AMITA UNSPECIFIED 34142 FEVER 10-20-2012 WEHRMAN III UNSPECIFIED AMITA 7862 COUGH 10-20-2012 JOSE ENRIQUE MILLA 71505 ABDOMINAL 10-20-2012 WEHRMAN III PAIN, AMITA UNSPECIFIED SITE 0091 COLITIS 08-27-2012 [facility] EN[facility]IT[facility]GAS [facility]ATES TROENTERIT INF ORIGIN 6262 EXCESSIVE 08-27-2012 [facility] OR FREQUENT ASSOCIATES MENSTRUATIO N 06562 INSOMNIA 08-27-2012 [facility] UNSPECIFIED ASSOCIATES V016 CONTACT 07-15-2012 [facility] WITH OR HEALTH EXPOSURE TO [place] VENEREAL DISEASES 75668 MASTODYNIA 06-24-2012 [facility] 32072 ABDOMINAL 06-24-2012 [facility] PAIN, [facility] GENERALIZED INC V2541 SURVEILLANC 06-07-2012 [facility] E [facility] PRESCRIBED CENTER CONTRACEPT PILL 3819 UNSPECIFIED 06-02-2012 ANUP Arroyo EUSTACHIAN TUBE DISORDER 69302 LOSS OF 06-02-2012 [facility] WEIGHT [facility] V7241 03-30-2012 [facility] EXAMINATION HEALTH OR TEST CENTER NEGATIVE RESULT 5758 OTHER 02-05-2012 [place] SPECIFIED MEDICAL DISORDER OF IMAGING ASS GALLBLADDER 03035 ABDOMINAL 02-03-2012 [facility] PAIN OTHER SPECIFIED SITE 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 2662 OTHER 01-06-2012 [facility] B-COMPLEX HEALTH DEFICIENCIE CENTER S 6228 OTHER 01-06-2012 PATHOLOGY & SPECIFIED CYTOLOGY NONINFLAMMA LAB TORY DISORDER CERVIX V1589 OTH SPEC 01-06-2012 PATHOLOGY & PERS HX CYTOLOGY PRESENTING LAB [facility] OT V2509 OT GENERAL 01-06-2012 [facility] HEALTH CNSL&ADVICE CENTER CONTRACEPT MANAGEMENT V2549 SURVEILLANC 10-29-2011 [facility] CONTRACE[facility] METHOD 460 ACUTE 09-18-2011 [facility] NASOPHARYNG ASSOCIATES ITIS 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 28821 UNSPECIFIED 01-13-2011 MEDICAL VAGINITIS DIAGNOSTIC AND LAB [facility] VULVOVAGINI TIS V7231 ROUTINE 12-24-2010 PATHOLOGY & GYNECOLOGIC CYTOLOGY AL LAB EXAMINATION 7231 CERVICALGIA 06-28-2010 [facility] HEALTH CENTER 62856 NONSPEC 06-28-2010 [facility] ABNORM PAP HEALTH CERV CENTER UNSATISFACT ORY CYTOLOGY 47315 PAP SMER 06-07-2010 [facility] CERV HEALTH W/ATYPICAL CENTER SQUAMOUS CELLS UNDET 8830 OPEN WOUND 10-20-2009 [facility] WITHOUT SERVICES MENTION ASSOCIATES COMPLICATIO N V065 NEED 10-20-2009 [facility] PROPHYLACTI [facility] C INC VACCINATION W/TETANUS-D [facility] 76370 UNSPECIFIED 08-21-2009 ELIASDUGLAS Cruz OBSTRUCTION OF EUSTACHIAN TUBE 4779 ALLERGIC 08-21-2009 [facility] ELIAS CAUSE UNSPECIFIED 86672 DYSFUNCTION 08-16-2009 JADA CHARISMA Arroyo EUSTACHIAN TUBE 43899 UNSPECIFIED 08-16-2009 DUGLAS ELIAS SENSORINEUR AL HEARING LOSS 72705 ABDOMINAL 08-08-2009 [facility] PAIN, ASSOCIATES PERIUMBILIC 25456 MIGRAINE 04-21-2009 [facility] UNSP W/O [facility] INTRACT W/O INC STATUS MIGRAINOSUS 4619 ACUTE 04-21-2009 [facility] SINUSITIS, [facility] UNSPECIFIED INC 7840 HEADACHE 04-21-2009 [facility] 40936 REGULAR 03-09-2009 [facility] ASTIGMATISM VISION 66035 UNSPECIFIED 12-28-2008 [facility] IN CCE & [...] NE 00 01 06 6 30 30 WV 71 CO Ac XI 18 -0 -2 .0 L- 01 OP ti UM 65 6- 8- 00 MA 45 ER ve 04 [address] 03 11 11 JOSÉ MIGUEL 1 PH HN 40 AR G MA MG CY # CA PS 10 UL 05 E 91 NE 00 01 06 6 30 30 WV 71 CO Ac XI 18 -0 -0 [...] NE 00 01 04 6 30 30 WV 71 CO Ac XI 18 -0 -2 .0 L- 01 OP ti UM 65 6- 9- 00 MA 45 ER ve 04 [address] 03 11 11 JOSÉ MIGUEL 1 PH HN 40 AR G MA MG CY # CA PS 10 UL 05 E 91 NE 00 01 03 6 30 30 WV 71 CO Ac XI 18 -0 -2 .0 L- 01 OP ti UM 65 6- 9- 00 MA 45 ER ve 04 [address] 03 11 11 JOSÉ MIGUEL 1 PH HN 40 AR G MA MG CY # CA PS 10 UL 05 E 91 NE 00 01 03 6 30 30 WV 71 CO Ac XI 18 -0 -0 [...] IA MA N CY T #5 91 FL 68 10 11 00 10 2 WA [...] HN AR G MA CY #5 91 FL 68 10 10 00 10 2 RI [...] Procedure DOS Code Location Performer Comment COMPREHEN 71632 [facility] SIVE 7 [facility] [place] [address] [facility] FOLIC 7 [facility] [place] [address] [facility] GUTIERR[facility] FREE 7 [facility] [place] [address] [facility] G[facility] THYROID 7 [facility] STIMULATI INC INC NG HORMONE TSH CYANOCOBA 04140 [facility] KELSEY 7 [facility] VITAMIN INC INC B-12 BLOOD 92047 [facility] COUNT 7 [facility] COMPLETE INC INC AUTO&[place] [address] [facility] GUT[facility] TRANSVAGI 7 [facility] NAL INC INC THYROID 08437 [facility] GUT[facility] HORM 7 [facility] H[facility] UPTK/THYR INC INC OID HORMONE BINDING RATIO BLOOD 72315 [facility] GUTIERRES COUNT 7 [facility] COMPLETE INC INC AUTO&AUTO DIFRNTL WBC URNLS DIP 86480 [facility] STEPHANIE 7 PHYSICIAN STICK/TAB S GROUP LET RGNT NON-AUTO W/O MICRSCP COLLECTIO 40445 [facility] GUTIERRES N VENOUS 7 [facility] [place] [address] [facility] GUTI[facility] THYROID 7 [facility] STIMULATI INC INC NG HORMONE TSH URINE 99471 [facility] STEPHANIE 7 PHYSICIAN TEST S GROUP [place] [address] BH[facility] GUTIERRES THYROXINE 7 MEM HOS[facility] TOTAL INC INC URINE 15050 [facility] GUTIERRES 7 [facility] TEST INC [place] [address] [facility] GUTIERRES THYROXINE 7 [facility] TOTAL INC INC COLLECTIO 61090 [facility] GUTIERRES N VENOUS 7 [facility] BLOOD INC INC VENIPUNCT URE COMPREHEN 01484 [facility] GUTIERRES SIVE 7 [facility] [place] [address] [facility] GUTIERRES THYROID 7 [facility] STIMULATI INC INC NG HORMONE TSH URNLS DIP 65968 [facility] GUTIERRES 7 [facility] STICK/TAB INC INC LET REAGENT AUTO MICROSCOP Y THYROID 43247 [facility] GUTIERRES HORM 7 [facility] UPTK/THYR INC INC OID HORMONE BINDING RATIO GONADOTRO 05194 [facility] PIN 7 [facility] CHORIONIC INC INC QUALITATI VE BLOOD 40585 [facility]UT[facility] COUNT 7 [facility] COMPLETE INC INC AUTO&AUTO DIFRNTL WBC BLOOD 12798 [facility]UT[facility] COUNT 6 [facility] COMPLETE INC INC AUTO&AUTO DIFRNTL WBC HOSPITAL G0378 [facility]UT[facility] OBSERVATI 6 [facility] ON INC INC SERVICE PER HOUR COLLECTIO 51393 [facility] GUTIERRES N VENOUS 6 [facility] BLOOD INC INC VENIPUNCT URE COMPREHEN 55741 [facility] G[facility] SIVE 6 [facility] METABOLIC INC INC PANEL OBSERVATI 48436 [facility] HEBERT ON CARE 6 CARE [place] DISCHARGE ASSOCIATE S MANAGEMEN T LEVEL III 28648 [facility], PICKLESIM SURG 6 [facility] GROSS&LEIGHANN ROSCOPIC EXAM COLLECTIO 68081 [facility] GUTIERRES N VENOUS 6 [facility] BLOOD INC INC VENIPUNCT URE HOSPITAL G0378 [facility] GUTIERRES OBSERVATI 6 [facility] ON INC INC SERVICE PER HOUR BASIC 53505 [facility] GUTIERRES METABOLIC 6 [facility] PANEL INC INC CALCIUM TOTAL ANES 22139 [facility]UNITY ADALBERTO INTRAPERI 6 ANESTH AYALA TONEAL OF THE UPPER BLUE ABDOMEN W/LAPS NOS BLOOD 57884 [facility] GUTIERR[facility] COUNT 6 [facility] COMPLETE INC INC AUTO&AUTO DIFRNTL WBC LAPAROSCO 33897 [facility] GUTI[facility] PY SURG 6 [facility] CHOLECYST INC INC ECTOMY SBSQ 23876 [facility] HEBERT OBSERVATI 6 CARE [place] ON ASSOCIATE CARE/DAY S [address] [place] [address] [facility] G[facility] ABDOMINAL 6 [facility] REAL INC INC TIME W/IMAGE LIMITED INITIAL 77174 FAM[facility] HEBERT OBSERVATI 6 CARE [place] ON ASSOCIATE CARE/DAY S 50 [place] [address] [facility] GUTIERRES INFUSION 6 [facility] THERAPY/P INC INC ROPHYLAXI S /DX 1ST TO 1 [facility] G0378 [facility] GUTIERRES OBSERVATI 6 [facility]OS[facility] ON INC INC SERVICE PER HOUR COMPREHEN 68600 [facility] GUTIERRES SIVE 6 [facility] [place] [address] [facility] GUT[facility] AMYLASE 6 MEM HOSP [facility] INC INC CREATINE 02936 [facility] BH[facility]IK KINASE MB 6 [facility] FRACTION INC INC ONLY URNLS DIP 31716 [facility] GUTIERRES 6 [facility] STICK/TAB INC INC [place] [address] [facility] GUTIERRES TROPONIN 6 [facility] QUANTITAT INC INC BRAYDEN BLOOD 63455 [facility] BHAVIK COUNT 6 [facility] COMPLETE INC INC AUTO&AUTO DIFRNTL WBC ECG 09968 [facility] DEL RIO ROUTINE 6 [facility] W/LEAST P 12 LDS I&R ONLY URINE 20273 BHAVIKWHITNEY NORIEGAON 6 [facility] TEST INC INC VISUAL COLOR CMPRSN METHS CREATINE 81503 [facility] KINASE 6 [facility] [place] [address] [facility] LIPASE 6 [facility] [place] [address] BH[facility] ABDOMEN & 6 [facility] PELVIS INC INC W/O CONTRAST MATERIAL ECG 86385 [facility] GUTIERRES ROUTINE 6 [facility] ECG INC INC W/LEAST 12 LDS TRCG ONLY W/O I&R RADIOLOGI 03341 [facility] C EXAM 6 MEDICAL CHEST 2 IMAGING VIEWS ASS FRONTAL&[place] [address] [facility] ABDOMEN & 6 MEDICAL PELVIS IMAGING W/O ASS CONTRAST MATERIAL ECG 40249 BH[facility] CAMP JR ROUTINE 6 [facility] W/LEAST P 12 LDS I&R ONLY IADNA 36726 MEDICAL MEDICAL TRICHOMON 6 DIAGNOSTI DIAGNOSTI C LAB LLC C LAB LLC VAGINALIS AMPLIFIED PROBE TECH IADNA 54554 MEDICAL MEDICAL CHLAMYDIA 6 [facility]AGNOSTI DIAGNOSTI C LAB LLC C LAB LLC TRACHOMAT IS AMPLIFIED PROBE TQ GONADOTRO 45826 LAB VIRI LAB VIRI PIN 6 LIZANDRO LIZANDRO FOLLICLE HOLDINGS HOLDINGS STIMULATI NG HORMONE HANDLG&/O 34527 FAMILY FAMILY R CONVEY 6 CARE CARE OF SPEC ASSOCIATE ASSOCIATE FOR TR S S OFFICE TO LAB CYTP C/V 21777 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 AUTO THIN 6 Y VIRI OF Y VIRI OF LYR LIZANDRO LIZANDRO PREPJ SCR H H MNL RESCR PHYS IADNA 78227 MEDICAL MEDICAL URIEL 6 DIAGNOSTI DIAGNOSTI SPECIES C LAB LLC C LAB LLC AMPLIFIED PROBE TQ GONADOTRO 57901 LAB VIRI LAB VIRI PIN 6 LIZANDRO LIZANDRO LUTEINIZI HOLDINGS HOLDINGS NG HORMONE COMPREHEN 39311 COMBINED COMBINED SIVE 6 PHYSICIAN PHYSICIAN [place] [address] COMBINED COMBINED THYROID 6 PHYSICIAN PHYSICIAN STIMULATI S LA S LA NG HORMONE TSH IADNA 39391 MEDICAL MEDICAL NEISSERIA 6 DIAGNOSTI DIAGNOSTI C LAB LLC C LAB LLC GONORRHOE AE AMPLIFIED PROBE TQ EXC B9 81467 [facility] BROWN LESION 6 PHYSICIAN MARIZA MRGN XCP S GROUP SK TG T/A/L 0.5 CM/< [place] [address] [facility], BORGES SURG 6 [facility] PATHOLOGY GROSS&LEIGHANN ROSCOPIC EXAM IADNA 80587 [facility] LABSHALIMA NEISSERIA 6 [facility] GONORRHOE AE AMPLIFIED PROBE TQ CYTP 58496 [facility] CERVICAL/ 6 [facility] VAGINAL REQ INTERP PHYSICIAN CYTP C/V 39648 [facility] AUTO THIN 6 LLC LYR PREPJ SCR MNL RESCR PHYS IADNA 45403 [facility] CHLAMYDIA 6 [facility] TRACHOMAT IS AMPLIFIED PROBE TQ AMBULANCE A0429 [facility] SERVICE 5 AMBULANCE AMBULANCE BLS SERVICE SERVICE EMERGENCY TRANSPORT GROUND A0425 [facility] MILEAGE 5 AMBULANCE AMBULANCE PER SERVICE SERVICE STATUTE MILE URNLS DIP 77246 [facility] GUTIERRES 5 [facility] STICK/TAB INC INC LET REAGENT AUTO MICROSCOP Y BLOOD 50687 [facility] GUTIERRES OCCULT 5 [facility] PEROXIDAS INC INC E ACTV QUAL FECES 1-3 SPEC BLOOD 63237 [facility] GUTIERRES COUNT 5 [facility] COMPLETE INC INC AUTO&AUTO DIFRNTL WBC URINE 36305 [facility] GUTIERRES 5 [facility] TEST INC INC VISUAL COLOR CMPRSN METHS COMPREHEN 05179 [facility] GUTIERRES SIVE 5 [facility] METABOLIC INC INC PANEL URINE 14977 [facility] BROWN 5 PHYSICIAN MARIZA TEST S GROUP VISUAL COLOR CMPRSN METHS THERAPEUT 05950 [facility] IC PX 1/> 5 GAR AREAS CHIROPRAC EACH 15 TIC CENTE MIN EXERCISES CHIROPRAC 39224 [facility] TIC 5 GAR MANIPULAT CHIROPRAC BRAYDEN [place] TIC CENTE SPINAL 1-2 REGIONS APPL 79512 [facility] MODALITY 5 GAR 1/> AREAS CHIROPRAC TRACTION TIC CENTE MECHANICA L COMPREHEN 03489 [facility] SIVE 5 [facility] METABOLIC INC INC PANEL CREATINE 06680 [facility] GUTIERRES KINASE MB 5 [facility] FRACTION INC INC ONLY URINE 44694 [facility] GUTIERRES 5 [facility] TEST INC INC VISUAL COLOR CMPRSN METHS CREATINE 54115 [facility] G[facility] KINASE 5 [facility] TOTAL INC INC ECG 42863 [facility] ROUTINE 5 [facility] ECG INC INC W/LEAST 12 LDS TRCG ONLY W/O I&[place] [address] [facility]UTIERR[facility] INFUSION 5 [facility] THERAPY/P INC INC ROPHYLAXI S /DX 1ST TO 1 HR URNLS DIP 83620 [facility]UT[facility]ERRES [facility] STICK/TAB INC INC [place] [address] [facility] G[facility] TROPONIN 5 [facility] QUANTITAT INC INC [place] BLOOD 28424 [facility] GUTIERR[facility] COUNT 5 [facility] COMPLETE INC INC AUTO&AUTO DIFRNTL WBC THERAPEUT 56977 [facility] GUTIERRES IC 5 [facility] INJECTION INC INC IV PUSH EACH NEW DRUG ECG 96792 [facility] QUANG ROUTINE 5 [facility] W/LEAST P 12 LDS I&[place] [address] [facility] GUTIERRES INFUSION 5 [facility] THERAPY/P INC INC ROPHYLAXI S /DX 1ST TO 1 [place] [address] [facility] GUTIERRES INFUSION 5 [facility] THERAPY INC INC PROPHYLAX IS/[place] [address] [facility] GUTIERRES ABDOMEN & 5 [facility] PELVIS INC INC W/[place] [address] [facility] GUTIERRES LIPASE 5 [facility] INC INC COMPREHEN 74152 BH[facility] GUTIERRES SIVE 5 [facility] [address] [facility]UTIERRES AMYLASE 5 [facility] INC INC URINE 20399 [facility] GUTIERRES 5 [facility] TEST INC INC VISUAL COLOR CMPRSN METHS URNLS DIP 81790 [facility] GUTIERRES 5 [facility] STICK/TAB INC INC LET REAGENT AUTO MICROSCOP Y BLOOD 60048 [facility] GUTIERRES COUNT 5 [facility] COMPLETE INC INC AUTO&AUTO DIFRNTL WBC GLUC BLD 00078 [facility] GUTIERRES GLUC MNTR 5 [facility] DEV INC INC CLEARED FDA SPEC HOME USE IAADI 19327 [facility] GUTIERRES INFLUENZA 5 [facility] B VIRUS INC INC IAADI 63808 [facility] GUTIERRES INFFLUENZ 5 [facility] A A VIRUS INC INC URNLS DIP 63990 [facility] GUTIERRES 5 [facility] STICK/TAB INC INC LET REAGENT AUTO MICROSCOP Y URINE 16625 [facility] GUTIERRES 5 [facility] TEST INC INC VISUAL COLOR CMPRSN METHS URINE 49579 [facility] 4 PHYSICIAN MARIZA TEST S GROUP VISUAL COLOR CMPRSN METHS IADNA 45842 [facility] JR NELY TRACHOMAT IS AMPLIFIED PROBE TQ IADNA 05679 [facility], [facility] JR NELY GONORRHOE AE AMPLIFIED PROBE TQ CYTP C/V 30898 [facility] JR NELY LYR PREPJ SCR MNL RESCR PHYS DRUG SCRN 89437 COMBINED COMBINED QU[employer] 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 4 PHYSICIAN PHYSICIAN CLASS S LA S LA NONCHROMO TOGRAPHIC EACH DRUG SCR G0434 COMBINED COMBINED NOT 4 PHYSICIAN PHYSICIAN CHROMATOG S LA S LA RAPHIC; ANY NUMBER PT ENC URINE 06422 ANUP [place] 4 G G TEST VISUAL COLOR CMPRSN METHS URINE 07152 ANUP [place] 4 G G TEST VISUAL COLOR CMPRSN METHS COMPREHEN 06718 COMBINED COMBINED SIVE 4 PHYSICIAN PHYSICIAN [place] [address] MARCOS MARCOS THYROID 4 R H R H STIMULATI NG HORMONE TSH URINE 94667 MARCOS MARCOS 4 R H R H TEST VISUAL COLOR CMPRSN METHS BLOOD 81676 MARCOS MARCOS COUNT 4 R H R H COMPLETE AUTO&[place] [address] [facility] GUT[facility]ERRES [facility]USION 3 [facility] THERAPY/P INC INC ROPHYLAXI S /DX 1ST TO 1 HR URNLS DIP 70346 [facility] GUTIERRES 3 [facility] STICK/TAB INC INC LET REAGENT AUTO MICROSCOP Y BLOOD 07635 [facility] COUNT 3 [facility] COMPLETE INC INC AUTO&AUTO DIFRNTL WBC THERAPEUT 29129 [facility] G[facility] IC 3 [facility] INJECTION INC [place] [address] [facility] LIPASE 3 [facility] INC INC COMPREHEN 42505 [facility] G[facility] SIVE 3 [facility] [address] [facility] GUT[facility] AMYLASE 3 [facility] INC INC URINE 63533 [facility]UTIERRES 3 [facility] TEST INC INC VISUAL COLOR CMPRSN METHS URINE 76033 STEPHANIE BROWN 3 MARIZA MARIZA [place] V[place] [address] STEPHANIE BROWN TRANSVAGI 3 [place] [address] [facility] TRANSVAGI [facility] [place] [address] BROWN STEPHANIE TRANSVAGI 3 MARIZA MARIZA NAL URINE 34135 STEPHANIE BROWN 3 MARIZA MARIZA TEST VISUAL COLOR CMPRSN METHS GONADOTRO 01465 [facility] GUT[facility]ERRES PIN 3 [facility] CHORIONIC INC INC QUALITATI VE URINE 59958 ANUP Whitmore 3 G G TEST VISUAL COLOR CMPRSN METHS BLOOD 81862 ANUP Whitmore COUNT 3 G G COMPLETE AUTO&AUTO DIFRNTL WBC URNLS DIP 69070 [facility] GUTIERRES 3 [facility] STICK/TAB INC INC LET REAGENT AUTO MICROSCOP Y SUSCEPTIB 34466 [facility] GUTIERRES LTY STDY 3 [facility] ANTIMICRB INC INC IAL MICRO/AGA R DILUTJ URINE 51550 [facility] GUTIERRES 3 [facility] TEST INC INC VISUAL COLOR CMPRSN METHS CULTURE 58494 [facility] GUTIERRES BACTERIAL 3 [facility] INC INC QUANTTATI VE COLONY COUNT URINE CULTURE 48215 [facility] GUT[facility]ERR[facility] BCT 3 [facility] ISOL&PRSM INC INC PTV ID ISOLATE EA URINE URINE 96923 ANUP Whitmore 3 G G TEST VISUAL COLOR CMPRSN METHS URINE 71270 [facility] GUTIERRES 3 [facility] TEST INC INC VISUAL COLOR CMPRSN METHS CULTURE 53293 [facility] GUTIERRES BACTERIAL 3 [facility] INC INC [place] [address] [facility]UT[facility] LIPASE 3 [facility] INC INC IAADI 56314 [facility] GUT[facility] INFLUENZA 3 [facility] B VIRUS INC INC IAADI 52928 [facility] GUT[facility]ERR[facility] INFFLUENZ 3 [facility] A A VIRUS INC INC INJECTION J2405 [facility] GUTIERRES 3 [facility] ONDANSETR INC INC ON HCL PER 1 MG COMPREHEN 34761 [facility]UTIERRES SIVE 3 [facility] [address] [facility] GUTIERRES AMYLASE 3 [place] [address] [facility] GUTIERRES INFUSION 3 [facility] THERAPY/P INC INC ROPHYLAXI S /DX 1ST TO 1 HR URNLS DIP 53563 [facility] GUTIERRES 3 [facility] STICK/TAB INC INC LET REAGENT AUTO MICROSCOP Y BLOOD 55167 [facility] GUTIERRES COUNT 3 [facility] COMPLETE INC INC AUTO&AUTO DIFRNTL WBC CULTURE 20877 [facility] GUTIERRES BACTERIAL 3 [facility] BLOOD INC INC AEROBIC W/ID ISOLATES THERAPEUT 56776 [facility] GUTIERRES IC 3 [facility] INJECTION INC INC IV PUSH EACH NEW DRUG RADIOLOGI 29632 JOSE ENRIQUE QUISPE C EXAM 3 MILLA MILLA CHEST 2 VIEWS FRONTAL&[place] [address] [facility] GUTIERRES INFUSION 3 [facility] THERAPY/P INC INC ROPHYLAXI S /DX 1ST TO 1 HR THERAPEUT 61622 [facility] GUTIERRES IC 3 [facility] INJECTION INC INC IV PUSH EACH NEW DRUG URNLS DIP 55289 [facility] GUTIERRES 3 [facility] STICK/TAB INC INC LET REAGENT AUTO MICROSCOP Y BLOOD 10378 [facility] GUTIERRES COUNT 3 [facility] COMPLETE INC INC AUTO&AUTO DIFRNTL WBC INJECTION J2405 [facility] GUTIERRES 3 [facility] ONDANSETR INC INC ON HCL PER 1 MG COMPREHEN 13416 [facility] GUTIERRES SIVE 3 [facility] [place] [address] BH[facility] NORIEGAON AMYLASE 3 [facility] INC INC URINE 54052 [facility] GUTIERRES 3 [facility] TEST INC INC VISUAL COLOR CMPRSN METHS 3D 80857 [facility] GUTIERRES RENDERING 3 [facility] INC INC W/INTERP& [place] [address] [facility] GUTIERRES LIPASE 3 [facility] INC INC IAADI 39974 [facility] GUTIERRES INFLUENZA 3 [facility] B VIRUS INC INC IAADI 58511 [facility] GUTIERRES INFFLUENZ 3 [facility] [place] [address] [facility] GUTIERRES ABDOMEN & 3 [facility] PELVIS INC INC W/O CONTRAST MATERIAL BLOOD 84273 FAMILY FAMILY COUNT 2 CARE CARE COMPLETE ASSOCIATE ASSOCIATE AUTO&AUTO S S DIFRNTL WBC GONADOTRO 68301 [facility] GUTIERRES PIN 2 [facility] CHORIONIC INC INC QUALITATI VE CULTURE 31198 COMBINED COMBINED BACTERIAL 2 PHYSICIAN PHYSICIAN S [place] S [place] QUANTTATI VE COLONY COUNT URINE GENERAL 70674 [facility] GUTIERRES HEALTH 2 [facility] PANEL INC INC URNLS DIP 59885 FAMILY FAMILY 2 CARE CARE STICK/TAB ASSOCIATE ASSOCIATE LET RGNT S S NON-AUTO W/O MICRSCP ANTIBODY 72859 [facility] MEDINAOBAC 2 [facility] TER INC INC PYLORI URINE 26548 FAMILY CHRISTIANSON 2 CARE JAM TEST ASSOCIATE VISUAL [place] [address] [facility] GUTIERRES THYROID 2 [facility] STIMULATI [place] [address] [facility] GUTIERRES THYROXINE 2 [facility] TOTAL INC INC BLOOD 09875 ANUP HEBERT J COUNT 2 G G COMPLETE AUTO&AUTO DIFRNTL WBC THYROID 68718 [facility] GUTIERRES HORM 2 [facility] UPTK/THYR INC INC OID HORMONE BINDING RATIO CONTRACEP A4267 [facility] GUTIERRES TIVE 2 [facility] CONDOM MALE EACH CONTRACEP S4993 BH[facility] GUTIERRES TIVE 2 [facility] CONTROL URINE 67298 [facility] GUTIERRES 2 [facility] [place] [address] [facility] GUTIERRES ABDOMINAL 2 [facility] REAL INC INC TIME W/IMAGE LIMITED ECG 66137 HALIMA NAVARRO ROUTINE 2 EMERGENCY LEIGHANN ECG SERVICES W/LEAST 12 LDS I&R ONLY URNLS DIP 40942 [facility] GUTIERRES 2 [facility] STICK/TAB INC INC [place] [address] [facility] GUTIERRES TROPONIN 2 [facility] QUANTITAT INC INC BRAYDEN BLOOD 60987 [facility] GUTIERRES COUNT 2 [facility] COMPLETE INC INC AUTO&AUTO DIFRNTL WBC URINE 36623 [facility] GUTIERRES 2 [facility] TEST INC INC VISUAL COLOR CMPRSN METHS CREATINE 14583 BH[facility]IK GUTIERRES KINASE 2 [facility] [place] [address] [facility] GUTIERRES LIPASE 2 [facility] INC INC ECG 11414 [facility] GUTIERRES ROUTINE 2 [facility] ECG INC INC W/LEAST 12 LDS TRCG ONLY W/O I&R COMPREHEN 15785 [facility] GUTIERRES SIVE 2 [facility] [place] [address] [facility] GUTIERRES AMYLASE 2 [facility] INC INC CREATINE 92532 BH[facility] GUTIERRES KINASE MB 2 [facility] FRACTION INC INC ONLY IADNA 19674 BHAVIK GUTIERRES NEISSERIA [address] [facility] GONORRHOE AE AMPLIFIED PROBE TQ IADNA 26314 BH[facility]IK GUTIERRES CHLAMYDIA [address] [facility] TRACHOMAT IS AMPLIFIED PROBE TQ CYTP 95441 PATHOLOGY BORGES CERV/VAG 2 & LANE AUTO THIN CYTOLOGY LAYER LAB PREP MNL SCREEN CYTP 66076 PATHOLOGY BORGES CERVICAL/ [address] LANE VAGINAL CYTOLOGY REQ LAB INTERP PHYSICIAN INJ J1055 [facility] GUTIERRES MDRXYPRGE 2 [facility] ACTAT CNTRACPT USE 150 MG BLOOD 77283 FAMILY FAMILY COUNT 2 CARE CARE COMPLETE ASSOCIATE ASSOCIATE AUTO&AUTO S S DIFRNTL WBC INJ J1055 [facility] GUTIERRES MDRXYPRGE 1 [facility] CNTRACPT USE 150 MG URINE 10806 [facility] GUTIERRES 1 [facility] VISUAL COLOR CMPRSN METHS INJ J1055 BH[facility]IK GUTIERRES MDRXYPRGE 1 [facility] ACTAT CNTRACPT USE 150 MG NONEMERGE A0100 [facility] CAB NCY 1 COMMUNITY TRANSPORT ACTION ATION; TAXI IADNA 28081 MEDICAL MEDICAL CHLAMYDIA 1 [facility] TRACHOMAT IS AMPLIFIED PROBE TQ URINE 46495 FAMILY MULBERRY 1 [facility] TEST ASSOCIATE VISUAL S COLOR CMPRSN METHS IADNA 59442 MEDICAL MEDICAL GARDNEREL 1 DIAGNOSTI DIAGNOSTI LA [facility] VAGINALIS AMPLIFIED PROBE TQ IADNA 04693 MEDICAL MEDICAL URIEL 1 DIAGNOSTI DIAGNOSTI SPECIES [facility] AMPLIFIED PROBE TQ IADNA NOS 43095 MEDICAL MEDICAL 1 DIAGNOSTI DIAGNOSTI AMPLIFIED [facility] PROBE TQ EACH ORGANISM IADNA 44707 MEDICAL MEDICAL NEISSERIA 1 [facility]NOSTI [facility] GONORRHOE AE AMPLIFIED PROBE TQ BLOOD 72476 FAMILY FAMILY COUNT 1 CARE CARE COMPLETE ASSOCIATE ASSOCIATE AUTO&AUTO S S DIFRNTL WBC CONTRACEP A4267 [facility] GUTIERRES TIVE 1 [facility] CONDOM MALE EACH INJ J1055 [facility] GUTIERRES MDRXYPRGE 1 [facility] ACTAT CNTRACPT USE 150 MG IADNA 11298 BH[facility]IK GUTIERRES NEISSERIA 1 [facility] GONORRHOE AE AMPLIFIED PROBE TQ IADNA 47536 BHAVIK GUTIERRES CHLAMYDIA 1 [facility] TRACHOMAT IS AMPLIFIED PROBE TQ CYTP 48446 PATHOLOGY PATHOLOGY CERV/VAG 1 & & AUTO THIN CYTOLOGY CYTOLOGY LAYER LAB LAB PREP MNL SCREEN INJ J1055 BHAVIK NORIEGAON MDRXYPRGE 1 [facility] STRON [facility] ACTAT CNTRACPT USE 150 MG NONEMERGE A0100 [facility] CAB NCY 1 COMMUNITY TRANSPORT ACTION ATION; TAXI INJ J1055 BH[facility]IK GUTIERRES MDRXYPRGE 0 [facility] CNTRACPT USE 150 MG CYTP 54949 PATHOLOGY PATHOLOGY CERV/VAG 0 & & AUTO THIN CYTOLOGY CYTOLOGY LAYER LAB LAB PREP MNL SCREEN INJ J1055 [facility] GUTIERRES MDRXYPRGE 0 [facility] CNTRAC[facility] USE 150 MG INJ J1055 [facility] GUTIERRES MDRXYPRGE 0 [facility] CNTRACPT USE 150 MG INJ J1055 [facility] GUTIERRES MDRXYPRGE 0 [facility] CNTRACPT USE 150 MG CONTRACEP A4267 BH[facility] GUTIERRES TIVE 0 [facility] CONDOM MALE EACH IADNA 48431 BHAVIK GUTIERRES CHLAMYDIA [address] [facility] TRACHOMAT IS AMPLIFIED PROBE TQ CYTP 32531 PATHOLOGY PATHOLOGY CERV/VAG 0 & & AUTO THIN CYTOLOGY CYTOLOGY LAYER LAB LAB PREP MNL SCREEN CYTP 38667 PATHOLOGY PATHOLOGY CERVICAL/ 0 & & VAGINAL CYTOLOGY CYTOLOGY REQ LAB LAB INTERP PHYSICIAN IADNA 02609 BH[facility] GUTIERRES NEISSERIA 0 [facility] GONORRHOE AE AMPLIFIED PROBE TQ SIMPLE 28140 HALIMA MORENO REPAIR 0 EMERGENCY III, SCALP/NEC SERVICES OMAIRA K/AX/JULIANNE T/TRUNK ASSOCIATE 2.5CM/< S CLOSURE 8659 [facility] GUTIERRES SKIN&SUBC 0 [facility] UTANEOUS INC INC TISSUE OTHER SITES BLOOD 92563 [facility] GUTIERRES COUNT 0 [facility] COMPLETE INC INC AUTO&AUTO DIFRNTL WBC URNLS DIP 68287 [facility] GUTIERRES 0 [facility] STICK/TAB INC INC LET REAGENT AUTO MICROSCOP Y URINE 83233 [facility] GUTIERRES 0 [facility] TEST INC INC VISUAL COLOR CMPRSN METHS COMPREHEN 75447 [facility] GUTIERRES SIVE 0 [facility] [place] [address] [facility] GUTIERRES AMYLASE 0 [place] [address] [facility] GUTIERRES LIPASE 0 [facility] INC INC TYMPANOME 92293 ELIAS ELIAS, TRY 9 [place] [place] ACOUSTIC 34682 JADA ELIAS, REFLEX 9 [place] [place] THRESHOLD COMPRE 13943 JADA ELIAS, AUDIOMETR 9 [place] Y THRESHOLD EVAL SP RECOGNIJ INJ J1055 [facility] MDRXYPRGE 9 [facility] ACCT CNTRACPT USE 150 MG BLOOD 68317 FAMILY MULBERRY, COUNT 9 CARE OSIRIS T COMPLETE ASSOCIATE AUTO&[place] [address] [place] QUISPEVAGI 9 [place]ICAL [place] [address] BH[facility] GUTIERRES ABDOMINAL 9 [facility] REAL INC INC TIME W/IMAGE LIMITED ANTIBODY 31579 COMBINED COMBINED HELICOBAC [address] LAB S LAB PYLORI COMPREHEN 36057 COMBINED COMBINED SIVE 9 PHYSICIAN PHYSICIAN [place]AB[place] [address] COMBINED COMBINED AMYLASE 9 PHYSICIAN PHYSICIAN S LAB S LAB 3D 56156 BH[facility]IK GUTIERRES RENDERING 9 [facility] W/INTERP INC INC & [place] [address] [place], HEAD/BRAI 9 MEDICAL KIM P N W/O IMAGING CONTRAST ASSOCIATE MATERIAL S 3D 32816 [place], RENDERING 9 MEDICAL KIM P IMAGING W/INTERP& [place]OCI[place] [address] BH[facility]IK GUTIERRES MAXILLOFA 9 [facility] CIAL W/O INC INC CONTRAST MATERIAL URNLS DIP 98751 BH[facility]IK GUTIERRES 9 [facility] STICK/TAB INC INC LET REAGENT AUTO MICROSCOP Y URINE 19853 BH[facility]IK GUTIERRES 9 [facility] TEST INC INC VISUAL COLOR CMPRSN METHS INJ J1055 [facility] MDRXYPRGE 9 [facility] ACCT CNTRACPT USE 150 MG CONTRACEP A4267 [facility]/CO BH[facility]IK TIVE 9 [facility] CONDOM BANK ACCT MALE EACH BLOOD 31507 FAMILY MARCOS, COUNT 9 CARE R LISETH COMPLETE ASSOCIATE AUTO&AUTO S DIFRNTL WBC FRAMES V2020 SALTY WISE, PURCHASES 9 VISION MELANIE Vasquez 1 VISN V2103 SALTY WISE, PLANO 9 VISION MELANIE M TO+/-4.00 D SPHER 0.12-2.00 D CYL EA FITTING 51636 SALTY WISE, SPECTACLE 9 VISION MELANIE Vasquez S XCPT APHAKIA MONOFOCAL OPHTH 60417 SALTY WISE, MEDICAL 9 VISION MELANIE M XM&EVAL COMPRHNSV ESTAB PT 1/> URINE 40805 [facility]/CO VIVIAN 9 [facility] VISUAL B[facility] ACCT COLOR CMPRSN METHS INJ J1055 [facility]/CO VIVIAN MDRXYPRGE 9 [facility] STRO CENTRAL DEPT ACTAT BANK ACCT CNTRACPT USE 150 MG URINE 64869 BHAVIK BHAVIK 9 [facility] TEST INC INC VISUAL COLOR CMPRSN METHS IAADI 70566 BH[facility]IK GUTIERRES INFLUENZA 9 [facility] B VIRUS INC INC IAADI 06770 BH[facility] GUTIERRES INFFLUENZ 9 [facility] [place] [address] BH[facility]IK GUTIERRES STREPTOCO 9 [facility] CCUS INC INC GROUP A COMPREHEN 32056 BH[facility] GUTIERRES SIVE 9 [facility] METABOLIC INC INC PANEL URNLS DIP 40758 BHAVIKWHITNEY GUTIERRES 9 [facility] STICK/TAB INC INC LET REAGENT AUTO MICROSCOP Y BLOOD 12518 BH[facility] GUTIERRES COUNT 9 [facility] COMPLETE INC INC AUTO&AUTO DIFRNTL WBC CYTP 63432 [facility] CERV/VAG 9 [facility] AUTO THIN [facility] LAYER BANK ACCT PREP MNL SCREEN IADNA 82178 [facility]/CO BHAVIK CHLAMYDIA 9 [facility] TRACHOM[facility] BANK ACCT IS AMPLIFIED PROBE TQ INJ J1055 [facility] MDRXYPRGE 9 [facility] ACCT CNTRACPT USE 150 MG INJ J1055 [facility]IK MDRXYPRGE 9 [facility] ACCT CNTRACPT USE 150 MG INJ J1055 [facility]IK MDRXYPRGE 8 [facility] ACCT CNTRACPT USE 150 MG INJ J1055 [facility]IK MDRXYPRGE 8 [facility] ACCT CNTRACPT USE 150 MG CONTRACEP A4267 [facility]/CO BHAVIK TIVE 8 [facility] CONDOM BANK ACCT MALE EACH INJ J1055 [facility]/CO [facility]IK MDRXYPRGE 8 [facility] ACCT CNTRACPT USE 150 MG Encounters Encounter Start End Date Code Location Performer Type Date [facility] BHAVIK - 7 7 [facility] OUTPATIEN [facility] BHAVIK - 7 7 [facility] OUTPATIEN [facility] T OFFICE 01395 [facility] 7 7 PHYSICIAN T VISIT S GROUP 25 MINUTES HOSPITAL BHAVIK - 7 7 [facility] OUTPATIEN [facility] BHAVIK - 7 7 [facility] T EMERGENCY 43472 BHAVIK 7 7 [facility] T VISIT LIMITED/M INOR PROB EMERGENCY 87708 MARIAH HERMAN 7 7 PHYSICIAN U DEPARTMEN S, PLLC T VISIT HIGH/URGE NT SEVERITY OFFICE 66217 [facility] MELANIE OUTPATIEN 6 6 PHYSICIAN T VISIT S GROUP 15 MINUTES OFFICE 41086 FAMILY ANUP OUTPATIEN 6 6 CARE [place] T VISIT ASSOCIATE 15 S MINUTES OFFICE 62046 [facility] KARRIE TOD CONSULTAT 6 6 PHYSICIAN ION S GROUP NEW/ESTAB PATIENT 30 MIN HOSPITAL BHAVIK - 6 6 [facility] OUTPATIEN INC T EMERGENCY 08675 BHAVIK DEPT 6 6 [facility] VISIT INC HIGH SEVERITY& THREAT FUNCJ EMERGENCY 08363 MARIAH NAVARRO DEPT 6 6 PHYSICIAN LEIGHANN VISIT S, PLLC HIGH SEVERITY& THREAT FUNCJ PERIODIC 03549 [facility] PREVENTIV 6 6 PHYSICIAN E MED EST S GROUP PATIENT 18-39 YRS EMERGENCY 77614 MARIAH HERMAN 5 5 PHYSICIAN U ERNA DEPARTMEN S, [facility] T VISIT MODERATE SEVERITY OFFICE 24740 FAMILY MARCOS OUTPATIEN 5 5 CARE R H T VISIT ASSOCIATE S MINUTES [facility] BHAVIK - 5 5 [facility] T EMERGENCY 21599 MARIAH NAVARRO 5 5 PHYSICIAN [facility] DEPARTMEN S, [facility] T VISIT HIGH/URGE NT SEVERITY EMERGENCY 65697 BHAVIK 5 5 [facility] T VISIT MODERATE SEVERITY OFFICE 28874 [facility] STEPHANIE OUTPATIEN 5 5 PHYSICIAN MARIZA T VISIT S GROUP 15 MINUTES OFFICE 80089 [facility] OUTPATIEN 5 5 [facility] T VISIT CHIROPRAC 15 TIC CENTE MINUTES [facility] BHAVIK - 5 5 [facility] OUTPATIEN [facility] T EMERGENCY 27688 MARIAH NAVARRO 5 5 PHYSICIAN [facility] DEPARTMEN S, [facility] T VISIT HIGH/URGE NT SEVERITY OFFICE 85046 BHAVIK SLAUGHTER OUTPATIPAUL 5 5 [facility] VISIT [facility] 15 MINUTES HOSPITAL BHAVIK - 5 5 [facility] OUTPATIEN [facility] T EMERGENCY 81988 BHAVIK NAVARRO 5 5 [facility] T VISIT P MODERATE SEVERITY EMERGENCY 58225 BHAVIK HILL 5 5 [facility] T VISIT P MODERATE SEVERITY HOSPITAL BHAVIK - 5 5 [facility] OUTPATIEN INC T EMERGENCY 80201 [facility] LOW/MODER SEVERITY OFFICE 50144 BHAVIK WEBB OUTPATIEN [address] MINUTES OFFICE 55997 [facility] OUTPATIEN 4 4 PHYSICIAN MARIZA T VISIT S GROUP 25 MINUTES EMERGENCY 33135 [facility] INC 4 4 [facility] EMERGENCY T VISIT PHYS HIGH/URGE NT SEVERITY EMERGENCY [address] [facility] INC T VISIT LOW/MODER SEVERITY HOSPITAL BHAVIK - 4 4 [facility] OUTPATIEN INC T EMERGENCY 09758 BHAVIK 4 4 [facility] LOW/MODER SEVERITY [facility] BH[facility]IK - 4 4 [facility] OUTPATIEN INC T OFFICE 11490 [facility]UP [facility] OUTPATIEN 4 4 G G T VISIT 25 MINUTES OFFICE 07862 [facility] OUTPATIEN 4 4 G G T VISIT 15 MINUTES EMERGENCY 91675 MARIA ELENA GARCÍA 4 4 DEPARTMEN T VISIT MODERATE SEVERITY HOSPITAL BHAVIK - 4 4 [facility] OUTPATIEN INC T OFFICE 03865 MARCOS MARCOS OUTPATIEN 4 4 R H R H T VISIT 15 MINUTES EMERGENCY 25622 JOSH MORENO 4 4 III AMITA III [facility] T VISIT HIGH/URGE NT SEVERITY HOSPITAL BHAVIK - 4 4 [facility] OUTPATIEN INC T EMERGENCY 96902 BHAVIK 4 4 [facility] DEPARTMEN INC T VISIT LOW/MODER SEVERITY EMERGENCY 13766 BHAVIK 3 3 [facility] DEPARTMEN INC T VISIT MODERATE SEVERITY HOSPITAL BHAVIK - 3 3 [facility] OUTPATIEN INC T EMERGENCY 46383 MELANIE MELANIE 3 3 [facility] DEPARTMEN T VISIT HIGH/URGE NT SEVERITY OFFICE 77261 STEPHANIE BROWN OUTPATIEN 3 3 MARIZA MARIZA T VISIT 15 MINUTES OFFICE 39274 STEPHANIE BROWN OUTPATIEN 3 3 MARIZA MARIZA T NEW 45 MINUTES HOSPITAL [facility] - 3 3 [facility] OUT[facility]IEN INC T OFFICE 01783 ANUP CARRERAPATIEN 3 3 G G T VISIT 15 MINUTES OFFICE 99742 ANUP CARRERAPATIEN 3 3 G G T VISIT 15 MINUTES OFFICE 22363 ANUP Whitmore OUTPATIEN 3 3 G G T VISIT 15 MINUTES OFFICE 31713 ANUP CARRERAPATIEN 3 3 G T VISIT 25 MINUTES EMERGENCY 03415 [facility] [address] [facility] T VISIT LIMITED/M [facility] - 3 3 [facility] OUTPATIEN INC T EMERGENCY 59531 MELANIE NAVARRO 3 3 [facility] DEPARTMEN T VISIT HIGH/URGE NT SEVERITY OFFICE 60488 ANUP CARRERAPATIEN 3 3 G G T VISIT 15 MINUTES OFFICE 75403 ANUP Whitmore OUTPATIEN 3 3 G G T VISIT 25 MINUTES EMERGENCY 32150 JOSH MORENO DEPT 3 3 III AMITA III AMITA VISIT HIGH SEVERITY& THREAT [facility] BHAVIK - 3 3 [facility] OUTPATIEN INC T EMERGENCY 02635 [facility] 3 3 [facility] T VISIT MODERATE SEVERITY [facility]OSP[facility] - 3 3 [facility] OUT[facility] INC T EMERGENCY 83395 [facility] 3 3 [facility] INC T VISIT HIGH/URGE NT SEVERITY EMERGENCY 52471 MELANIE NAVARRO DEPT 3 3 LEIGHANN LEIGHANN VISIT HIGH SEVERITY& THREAT FUNCJ OFFICE 72374 FAMILY OUTPATIEN 2 2 CARE T VISIT ASSOCIATE 15 S MINUTES OFFICE 46276 BHAVIK GUTIERRES OUTPATIEN 2 2 [facility] 10 MINUTES OFFICE 72360 FAMILY OUTPATIEN 2 2 CARE T VISIT ASSOCIATE 15 S MINUTES [facility]OSPITAL [facility] - 2 2 [facility] INC T OFFICE 36030 [facility] OUTPATIEN 2 2 [facility] 15 MINUTES OFFICE 68863 ANUP [place] OUTPATIEN 2 2 G G T VISIT 15 MINUTES [facility]OSPITAL [facility] - 2 2 [facility] INC T OFFICE 70620 [facility] OUTPATIEN 2 2 [facility] 10 MINUTES HOSPITAL [facility] - 2 2 [facility] OUTPATI[facility] INC T OFFICE 88053 WILEY JAMA OUTPATIEN 2 2 VIN VIN T VISIT 15 MINUTES EMERGENCY 57495 HALIMA NAVARRO DEPT 2 2 EMERGENCY [facility]IGH[facility] VISIT SERVICES HIGH SEVERITY& THREAT [facility] - [facility] 2 [facility] OUT[facility] INC T EMERGENCY 58560 [facility] 2 2 [facility] DEPART[facility] INC T VISIT MODERATE SEVERITY OFFICE 42221 ANUP Whit[place] OUTPATIEN 2 2 T VISIT 15 MINUTES [facility] 29444 BHAVIK GUTIERRES PREVENTIV 2 2 [facility] PATIENT 18-39 YRS OFFICE 05337 ANUP Whitmore OUTPATIEN 2 2 T VISIT 25 MINUTES OFFICE 20732 [facility] GUTIERRES OUTPATIEN 2 2 [facility] 10 MINUTES OFFICE 88760 FAMILY MARCOS OUTPATIEN 2 2 CARE R H T VISIT ASSOCIATE 15 S MINUTES OFFICE 11814 BH[facility] GUTIERRES OUTPATIEN 1 1 [facility] 10 MINUTES OFFICE 92974 BHAVIK GUTIERRES OUTPATIEN 1 1 [facility] 15 MINUTES OFFICE 22301 BH[facility] GUTIERRES OUTPATIEN 1 1 [facility] 10 MINUTES OFFICE 66620 FAMILY ANUP Whitmore OUTPATIEN 1 1 CARE T VISIT ASSOCIATE 15 S MINUTES OFFICE 48128 FAMILY LIZZIE OUTPATIEN 1 1 [facility] T VISIT ASSOCIATE 15 S MINUTES PERIODIC 38371 BH[facility] GUTIERRES PREVENTIV 1 1 [facility] PATIENT 18-39 YRS OFFICE 74407 BH[facility] GUTIERRES OUTPATIEN 1 1 [facility] 10 MINUTES OFFICE 34876 BH[facility]IK GUTIERRES OUTPATIEN 0 0 [facility] 10 MINUTES OFFICE 10110 BHAVIK GUTIERRES OUTPATIEN 0 0 [facility] 15 MINUTES OFFICE 60139 BH[facility] GUTIERRES OUTPATIEN 0 0 [facility] 15 MINUTES OFFICE 33673 BH[facility]IK GUTIERRES OUTPATIEN 0 0 [facility] 10 MINUTES OFFICE 46650 Myranda CAMPOS OUTPATIEN 0 0 CARE G T VISIT ASSOCIATE 15 S MINUTES OFFICE 01841 [facility] GUTIERRES OUTPATIEN 0 0 [facility] 15 MINUTES OFFICE 85372 Myranda CAMPOS 0 0 CARE G T VISIT ASSOCIATE 15 S MINUTES PERIODIC [id number] [facility] GUTIERRES PREVENTIV 0 0 [facility] EST [facility] PATIENT 18-39 YRS EMERGENCY 32328 HALIMA MORENO 0 0 EMERGENCY III, DEPARTMEN SERVICES OMAIRA T VISIT HIGH/URGE ASSOCIATE NT S SEVERITY EMERGENCY 64108 [facility] 0 0 [facility]PARTMEN INC T VISIT MODERATE SEVERITY HOSPITAL [facility] - 0 0 [facility] OUTPATIEN INC T HOSP[facility] - 0 0 [facility] OUTPATIEN INC T EMERGENCY 01395 [facility] 0 0 [facility] DEPARTMEN INC T VISIT HIGH/URGE NT SEVERITY OFFICE 32458 JADA ELIAS OUTPATIEN 9 9 DUGLAS Cruz ARDON G T VISIT 15 MINUTES OFFICE 58367 JADA ELIAS OUTPATIEN 9 9 DUGLAS Arroyo DUGLAS G T NEW 20 MINUTES OFFICE 35764 Myranda CAMPOS 9 9 CARE G T VISIT ASSOCIATE 15 S MINUTES OFFICE 10550 [facility]/CO BHAVIK OUTPATIEN 9 9 HEALTH CO HEALTH T VISIT [facility] 10 BANK ACCT MINUTES OFFICE [id number] JOHN MISTRY 9 9 CARE OSIRIS T T VISIT ASSOCIATE 25 S MINUTES OFFICE [id number] Myranda CAMPOS 9 9 CARE G T VISIT ASSOCIATE 15 S MINUTES HOSPITAL [facility] - 9 9 [facility] OUTPATIEN INC T OFFICE 41384 Myranda CAMPOS 9 9 CARE G T VISIT ASSOCIATE 25 S MINUTES HOSPITAL [facility] - 9 9 [facility] OUTPATIEN INC T EMERGENCY 59694 [facility] 9 9 [facility] DEPARTMEN INC T VISIT LOW/MODER SEVERITY EMERGENCY 93310 HALIMA NAVARRO, DEPT 9 9 EMERGENCY [facility] VISIT SERVICES HIGH SEVERITY& ASSOCIATE THREAT S [facility]UNC[facility] EMERGENCY 02674 HALIMA NAVARRO, 9 9 EMERGENCY [facility] SERVICES T VISIT HIGH/URGE ASSOCIATE NT S SEVERITY HOSPITAL [facility] - 9 9 [facility] OUTPATIEN INC T OFFICE 52994 [facility] OUTPATIEN 9 9 [facility] 10 BANK ACCT MINUTES OFFICE 40468 [facility] CARE R LISETH T VISIT ASSOCIATE 15 S MINUTES OFFICE 45837 [facility] T CENTRAL DEPT MINUTES BANK ACCT EMERGENCY 45404 HALIMA NAVARRO, 9 9 EMERGENCY [facility] SERVICES T VISIT HIGH/URGE ASSOCIATE NT S SEVERITY EMERGENCY 94589 [facility] 9 9 [facility] DEPARTMEN INC T VISIT MODERATE SEVERITY HOSPITAL BHAVIK - 9 9 [facility] OUTPATIEN INC T PERIODIC 50801 [facility] PREVENTIV 9 9 HEALTH [facility] E MED EST [facility] PATIENT BANK ACCT 18-39 YRS HOSPITAL [facility] - 9 9 [facility] OUTPATIEN INC T EMERGENCY 36734 DONAL NAVARRO, 9 9 [facility] T VISIT ON MODERATE SEVERITY EMERGENCY 16211 [facility] 9 9 [facility] DEPARTMEN INC T VISIT LIMITED/M INOR PROB OFFICE 84543 [facility] OUTPATIPAUL 9 9 [facility] 10 BANK ACCT MINUTES OFFICE 27668 [facility] OUTPATIEN 8 8 [facility]ALTH [facility] T VISIT [facility] 10 BANK ACCT MINUTES HOSPITAL [facility] - 8 8 [facility] OUTPATIEN INC T EMERGENCY 09017 [facility] 8 8 [facility] DEPARTMEN INC T VISIT LIMITED/M INOR PROB OFFICE 19192 [facility] OUTPATIEN 8 8 [facility]ALTH [facility] T VISIT [facility] 10 BANK ACCT MINUTES OFFICE 10047 [facility] OUTPATIEN 8 8 HEALTH [facility] T VISIT [facility] 10 BANK ACCT MINUTES OFFICE 68116 [facility] OUTPATIEN 8 8 HEALTH [facility] T VISIT [facility] 10 BANK ACCT MINUTES
--- OUTSIDE RECORDS SUMMARY | 2017-06-12 20:59 | External Medical Summary Rpt | CCD ---
Author Author , ISIDRO HERNANDEZ Address Unknown Phone [email or web address] Immunization Name Date Rout CVX Reac Dose Comm Prov Is Faci e tion ent ider Refu lity Give sed n Tdap 11-2 115 999 Hist H149 No H149 , 2-20 ori Adso 06 al rbed Info rmat ion - Sour ce Unsp ecif ied
--- OUTSIDE RECORDS SUMMARY | 2017-06-12 20:59 | External Medical Summary Rpt | CCD ---
Author Author , ISIDRO HERNANDEZ Address Unknown Phone [email or web address] Immunization Name Date Rout CVX Reac Dose Comm Prov Is Faci e tion ent ider Refu lity Give sed n Tdap 11-2 115 999 Hist H149 No H149 , 2-20 ori Adso 06 al rbed Info rmat ion - Sour ce Unsp ecif ied
--- OUTSIDE RECORDS SUMMARY | 2017-06-12 21:00 | External Medical Summary Rpt ---
Author Author DOCNELIDA Padilla, MARY [employer] Address Unknown Phone Unavailable Results Cobalamin (Vitamin B12) [Mass/volume] in Serum Observa Value Referen Units Interpr Notes Date tion ce etation Range Cobalamin 211 - 946 pg/mL No Performed Apr 06 (Vitamin informati at: CB 2016 1:50 B12) on in - [facility] PM [Mass/vol source ume] in data [place] [address] Serum 0 [place], [place] [id number] Can Line Operator: Santhosh Wagoner PhD, Phone: [phone] Folate [Mass/volume] in Serum or Plasma Observa Value Referen Units Interpr Notes Date tion ce etation Range Folate >3.0 ng/mL No A serum Apr 06 [Mass/vol informati folate 2016 1:50 ume] in on in concentra PM Serum or source tion of Plasma data less than 3.1 ng/mL isconside red to represent clinical deficienc y. 25-Hydroxyvitamin D [Mass/volume] in Serum or Plasma Observa Value Referen Units Interpr Notes Date tion ce etation Range 25-Hydrox 30.0 - ng/mL Low Vitamin D Apr 06 yvitamin 100.0 2016 1:50 D deficienc PM [Mass/vol y has ume] in been Serum or defined Plasma by the [place] ofMedicin e and an Endocrine Society practice guideline as alevel of serum 25-OH vitamin D less than 20 ng/mL (1,2).The Endocrine Society went on to further define vitamin Dinsuffic iency as a level between 21 and 29 ng/mL (2).1. IOM (Institut e of Medicine) . 2010. Dietary reference intakes for calcium and D. [place] al[place]: TheNation al Academies Press.2. Giovanny MF, Jolynn NC, Cara Licona DAVID, et al.Evalua tion, treatment , and preventio n of vitamin Ddeficien cy: an Endocrine Society clinical practiceg baljeet. JCEM. 2010; 96(7):191 1-30. Comprehensive metabolic 2000 panel in Serum or Plasma Observa Value Referen Units Interpr Notes Date tion ce etation Range Albumin/G 1.1 - 1.8 No Normal No Apr 06 lobulin informati informati 2016 1:50 [Mass on in on in PM ratio] in source source Serum or data data Plasma Albumin 3.4 - 5.0 gm/dL Normal No Apr 06 [Mass/vol informati 2016 1:50 ume] in on in PM Serum or source Plasma data Alkaline 46 - 116 U/L Low No Apr 06 phosphata informati 2016 1:50 se on in PM [Enzymati source c data activity/ volume] in Serum or Plasma Bilirubin 0.2 - 1.0 mg/dL Normal No Apr 06 .total informati 2016 1:50 [Mass/vol on in PM ume] in source Serum or data Plasma Urea 7 - 18 mg/dL Low No Apr 06 nitrogen informati 2016 1:50 [Mass/vol on in PM ume] in source Serum or data Plasma Calcium 8.5 - mg/dL Normal No Apr 06 [Mass/vol 10.1 informati 2016 1:50 ume] in on in PM Serum or source Plasma data Chloride 98 - 107 mmoL/L Normal No Apr 06 [Moles/vo informati 2016 1:50 lume] in on in PM Serum or source Plasma data Carbon 21.0 - mmoL/L Normal No Apr 06 dioxide, 32.0 informati 2017 1:50 total on in PM [Moles/vo source lume] in data Serum or Plasma Creatinin 0.55 - mg/dL Normal No Apr 06 e 1.02 informati 2016 1:50 [Mass/vol on in PM ume] in source Serum or data Plasma Estimated 59- ML/MIN No REFERENCE Apr 06 informati RANGE: 2017 1:50 glomerula on in >60 PM r source ML/MIN/1. filtratio data 73 SQUARE n rate METERSIf (GF this patient is -A merican, then multiply theresult by 1.210. Globulin 1.3 - 3.2 gm/dL High No Apr 06 [Mass/vol informati 2016 1:50 ume] in on in PM Serum source data Glucose 74 - 106 mg/dL Normal No Apr 06 [Mass/vol informati 2016 1:50 ume] in on in PM Serum or source Plasma data Potassium 3.5 - 5.1 mmoL/L Normal No Apr 062016 1:50 [Moles/vo on in PM lume] in source Serum or data Plasma Sodium 136 - 145 mmoL/L Normal No Apr 06 [Moles/vo 2016 1:50 lume] in on in PM Serum or source Plasma data Aspartate 15 - 37 U/L Normal No Apr 062016 1:50 aminotran on in PM sferase source [Enzymati data c activity/ volume] in Serum or Plasma Alanine 12 - 78 U/L Normal No Apr 06 aminotran 2016 1:50 sferase on in PM [Enzymati source c data activity/ volume] in Serum or Plasma Protein 6.4 - 8.2 gm/dL Normal No Apr 06 [Mass/vol 2016 1:50 ume] in on in PM Serum or source Plasma data Thyroxine (T4) free [Mass/volume] in Serum or Plasma Observa Value Referen Units Interpr Notes ti ce etation Range Thyroxine 0.76 - ng/dL Normal No Apr 06 (T4) 1.46 2016 1:50 free on in PM [Mass/vol source ume] in data Serum or Plasma Thyrotropin [Units/volume] in Serum or Plasma Observa Value Referen Units Interpr Notes ti ce etation Range Thyrotrop 0.358 - uIU/ml Normal No Apr 06 in 3.740 2016 1:50 [Units/vo on in PM lume] in source Serum or data Plasma CBC W Auto Differential panel in Blood Observa Value Referen Units Interpr Notes Date ti ce etation Range Basophils 0 - 0.2 K/MM3 Normal No Apr 062016 1:50 [#/volume on in PM ] in source Blood by data Automated count Basophils 0.1 - 2.0 % Normal No Apr 06 /100 inform2016 1:50 leukocyte on in PM s in source Blood by data Automated count Eosinophi 0.0 - 0.4 K/mm3 Normal No Apr 06 ls 2016 1:50 [#/volume on in PM ] in source Blood by data Automated count Eosinophi 0.1 - % Normal Apr 06 ls/100 12.0 informati 2017 1:50 leukocyte on in PM s in source Blood by data Automated count Granulocy 1.8 - 7.8 K/mm3 Normal No Apr 06 xiao informati 2016 1:50 [#/volume on in PM ] in source Blood by data Automated count Granulocy 37.0 - % Normal No Apr 06 xiao/100 80.0 informati 2016 1:50 leukocyte on in PM s in source Blood by data Automated count Hematocri 37.0 - % High No Apr 06 t [Volume 47.0 informati 2016 1:50 on in PM Fraction] source of Blood data Hemoglobi 12.2 - g/dL Normal No Apr 06 n 16.2 informati 2016 1:50 [Mass/vol on in PM ume] in source Blood data Lymphocyt 0.7 - 4.5 K/mm3 Normal No Apr 06 es informati 2016 1:50 [#/volume on in PM ] in source Unspecifi data ed specimen by Automated count Lymphocyt 10 - 50.0 % Normal No Apr 06 es 2016 1:50 [#/volume on in PM ] in source Unspecifi data ed specimen by Automated count Erythrocy 27 - 31.2 pg High No Apr 06 te mean informati 2016 1:50 corpuscul on in PM ar source hemoglobi data n [Entitic mass] Erythrocy 31.8 - g/dl Normal No Apr 06 te mean 35.4 informati 2016 1:50 corpuscul on in PM ar source hemoglobi data n concentra tion [Mass/vol ume] by Automated count Erythrocy 82.2 - fl Normal No Apr 06 te mean 97.8 informati 2016 1:50 corpuscul on in PM ar volume source [Entitic data volume] by Automated count Monocytes 0.1 - 1.0 K/mm3 Normal No Apr 06 informati 2016 1:50 [#/volume on in PM ] in source Blood by data Automated count Monocytes 1.7 - 9.3 % Normal No Apr 06 /100 informati 2017 1:50 leukocyte on in PM s in source Blood by data Automated count Platelet 7.4 - fl Normal No Apr 06 mean 10.4 informati 2016 1:50 volume on in PM [Entitic source volume] data in Blood by Automated count Platelets 142 - 424 K/mm3 Normal No Apr 06 informati 2016 1:50 [#/volume on in PM ] in source Blood data Erythrocy 4.2 - 5.4 M/mm3 Normal No Apr 06 xiao informati 2016 1:50 [#/volume on in PM ] in source Amniotic data fluid Erythrocy 11.5 - % Normal No Apr 06 te 17.5 informati 2016 1:50 distribut on in PM ion width source [Entitic data volume] by Automated count Leukocyte 4.8 - K/MM3 Low No Apr 06 s 10.8 informati 2016 1:50 [#/volume on in PM ] in source Blood data Treponema pallidum IgG Ab [Presence] in Serum by Immunoassay Observa Value Referen Units Interpr Notes Date tion ce etation Range COLLECT D.BRADF No No No No Jun 30 OR ORD RN informa informa informa informa 2012 tion in tion in tion in tion in 3:00 PM source source source source data data data data ETHNICI WHITE No No No No Jun 30 TY informa informa informa informa 2012 tion in tion in tion in tion in 3:00 PM source source source source data data data data PURPOSE DIAGNOS No No No No Jun 30 OF TIC informa informa informa informa 2012 EXAM tion in tion in tion in tion in 3:00 PM source source source source data data data data SPECIME BLOOD No No No No Jun 30 N informa informa informa informa 2012 SOURCE tion in tion in tion in tion in 3:00 PM source source source source data data data data CHART NA No No No No Jun 30 NUMBER informa informa informa informa 2012 tion in tion in tion in tion in 3:00 PM source source source source data data data data Trepone NON-JUANPABLO No No No METHOD Jun [address] informa informa informa OF 2012 pallidu tion in tion in tion in ANALYSI 3:00 PM m IgG source source source S: Ab data data data EIANORM [Presen AL ce] in RANGE: Serum NON-JUANPABLO by CTIVE\. Immunoa br\This ssay report contain s patient informa tion that must be protect ed in accorda nce with the Health Insuran ce Portabi lity and Account ability Act. Treponema pallidum IgG Ab [Presence] in Serum by Immunoassay Observa Value Referen Units Interpr Notes Date tion ce etation Range COLLECT D.BRADF No No No No Jun 30 OR ORD RN informa informa informa informa 2012 tion in tion in tion in tion in 3:00 PM source source source source data data data data ETHNICI WHITE No No No No Jun 30 TY informa informa informa informa 2012 tion in tion in tion in tion in 3:00 PM source source source source data data data data PURPOSE DIAGNOS No No No No Jun 30 OF TIC informa informa informa informa 2012 EXAM tion in tion in tion in tion in 3:00 PM source source source source data data data data SPECIME BLOOD No No No No Jun 30 N informa informa informa informa 2012 SOURCE tion in tion in tion in tion in 3:00 PM source source source source data data data data CHART NA No No No No Jun 30 NUMBER informa informa informa informa 2012 tion in tion in tion in tion in 3:00 PM source source source source data data data data Trepone Pending No No No \.br\Jun 30 ma informa informa informa is 2012 pallidu tion in tion in tion in report 3:00 PM m IgG source source source contain Ab data data data s [Presen patient ce] in Serum informa by bran Immunoesme that ssay must be protect ed in accorda nce with the Health Insuran ce Portabi lity and Account ability Act. CHLAMYDIA AND GONORRHEA TESTING Observa Value Referen Units Interpr Notes Date tion ce etation Range COLLECT NA No No No No January 06 OR informa informa informa informa 2012 tion in tion in tion in tion in 9:33 AM source source source source data data data data ETHNICI WHITE, No No No No January 06 TY NON-HIS informa informa informa informa 2012 PANIC tion in tion in tion in tion in 9:33 AM source source source source data data data data KIT - No No No No January 06 EXPIRAT informa informa informa informa 2012 ION tion in tion in tion in tion in 9:33 AM DATE source source source source data data data data SYMPTOM NO No No No No January 06 S informa informa informa informa 2012 tion in tion in tion in tion in 9:33 AM source source source source data data data data REASON REVISIT No No No No January 06 FOR /ANNUAL informa informa informa informa 2012 REQUEST FAMILY tion in tion in tion in tion in 9:33 AM source source source source PLANNIN data data data data G VISIT SPECIME URINE No No No No January 06 N informa informa informa informa 2012 SOURCE tion in tion in tion in tion in 9:33 AM source source source source data data data data PREGNAN NO No No No No January 06 T informa informa informa informa 2012 tion in tion in tion in tion in 9:33 AM source source source source data data data data CHART NA No No No No January 06 NUMBER informa informa informa informa 2012 tion in tion in tion in tion in 9:33 AM source source source source data data data data Chlamyd NEGATIV No No No NEGATIV January 06 ia E informa informa informa E 2012 trachom tion in tion in tion in RESULT= 9:33 AM atis source source source WITHIN rRNA data data data NORMAL [Presen ce] in LIMITSP Unspeci OSITIVE fied specime RESULT= n by Probe & ABNORMA target LEQUIVO SINGH amplifi RESULT= cation method INDETER MINATEU NSATISF ACTORY RESULT= INVALID Neisser NEGATIV No No No NEGATIV January 06 ia E informa informa informa E 2012 gonorrh tion in tion in tion in RESULT= 9:33 AM oeae source source source WITHIN rRNA data data data NORMAL [Presen ce] in LIMITSP Unspeci OSITIVE fied specime RESULT= n by Probe & ABNORMA target LEQUIVO SINGH amplifi RESULT= cation method INDETER MINATEU NSATISF ACTORY RESULT= INVALID EFFECTI VE NOVEMBE R [id number]: THE APTIMA COMBO 2 NUCLEIC ACIDAMP LIFICAT ION ASSAY IS NOT INTENDE D FOR THE EVALUAT ION OFSUSPE CTED SEXUAL ABUSE OR FOR OTHER MEDICO- LEGAL INDICAT IONS.FA LSE POSITIV E RESULTS ARE POSSIBL E.\.br\ This report contain s patient informa tion that must be protect ed in accorda nce with the Health Insuran richie gil and Account ability Act. CHLAMYDIA AND GONORRHEA TESTING Observa Value Referen Units Interpr Notes Date tion ce etation Range COLLECT NA No No No No January 06 OR informa informa informa informa 2012 tion in tion in tion in tion in 9:33 AM source source source source data data data data ETHNICI WHITE, No No No No January 06 TY NON-HIS informa informa informa informa 2012 PANIC tion in tion in tion in tion in 9:33 AM source source source source data data data data KIT No No No No January 06 EXPIRAT informa informa informa informa 2012 ION tion in tion in tion in tion in 9:33 AM DATE source source source source data data data data SYMPTOM NO No No No No January 06 S informa informa informa informa 2012 tion in tion in tion in tion in 9:33 AM source source source source data data data data REASON REVISIT No No No No January 06 FOR /ANNUAL informa informa informa informa 2012 REQUEST FAMILY tion in tion in tion in tion in 9:33 AM source source source source PLANNIN data data data data G VISIT SPECIME URINE No No No No January 06 N informa informa informa informa 2012 SOURCE tion in tion in tion in tion in 9:33 AM source source source source data data data data PREGNAN NO No No No No January 06 T informa informa informa informa 2012 tion in tion in tion in tion in 9:33 AM source source source source data data data data CHART NA No No No No January 06 NUMBER informa informa informa informa 2012 tion in tion in tion in tion in 9:33 AM source source source source data data data data Chlamyd Pending No No No No January 06 ia informa informa informa informa 2012 trachom tion in tion in tion in tion in 9:33 AM atis source source source source rRNA data data data data [Presen ce] in Unspeci fied specime n by Probe & target amplifi cation method Neisser Pending No No No \.br\January 06 ia informa informa informa is 2012 gonorrh tion in tion in tion in report 9:33 AM oeae source source source contain rRNA data data data s [Presen patient ce] in Unspeci informa fied tion specime that n by must be Probe & target protect ed in amplifi accorda cation nce method with the Health Insuran ce Portabi lity and Account ability Act.
--- OUTSIDE RECORDS SUMMARY | 2017-06-12 21:00 | External Medical Summary Rpt ---
Author Author DOCNELIDA Padilla, MARY [employer] Address Unknown Phone Unavailable Results Cobalamin (Vitamin B12) [Mass/volume] in Serum Observa Value Referen Units Interpr Notes Date tion ce etation Range Cobalamin 211 - 946 pg/mL No Performed Apr 06 (Vitamin informati at: CB 2016 1:50 B12) on in - [facility] PM [Mass/vol source ume] in data [place] [address] Serum 0 [place], [place] [id number] Benefits Consulting Analyst: Santhosh Wagoner PhD, Phone: [phone] Folate [Mass/volume] in Serum or Plasma [...] been Serum or defined Plasma by the [place] ofMedicin e and an Endocrine Society practice [...]
== END 2017-06-07 17:10 | disposition home or self-care (01) ==
LOC: UTC 15:47
DX: A08.4 Viral intestinal infection, unspecified (principal); F17.210 Nicotine dependence, cigarettes, uncomplicated